=== PATIENT | female | born 1945 | race Caucasian/White ===

== ENCOUNTER 2016-07-08 07:29 | Outpatient (CLI) | payer MEDICARE, MEDICAID | END 2016-07-08 07:30 | disposition home or self-care (01) | DX: D50.9 Iron deficiency anemia, unspecified (principal); I10 Essential (primary) hypertension; E11.9 Type 2 diabetes mellitus without complications; E78.5 Hyperlipidemia, unspecified; N28.9 Disorder of kidney and ureter, unspecified; E03.9 Hypothyroidism, unspecified ==

== ENCOUNTER 2017-10-27 08:00 | Outpatient (CLI) | payer MEDICARE, MEDICAID | END 2017-10-27 08:01 | disposition home or self-care (01) | LOC: LAB.WCP 08:00 | PROVIDERS: ATTEND Family Medicine | DX: G89.4 Chronic pain syndrome (principal) | CPT/HCPCS: 80307; 81599 ==

== ENCOUNTER 2018-02-24 04:08 | Outpatient (CLI) | payer MEDICARE, MEDICAID | END 2018-02-24 04:09 | disposition critical access hospital (66) | LOC: EMS 04:08 | PROVIDERS: ATTEND Surgery | DX: R25.1 Tremor, unspecified (principal); R53.1 Weakness; R11.2 Nausea with vomiting, unspecified; M79.1 Myalgia; R45.89 Other symptoms and signs involving emotional state; R05 Cough; R06.02 Shortness of breath ==

== ENCOUNTER 2018-02-24 04:28 | Emergency (ER) | payer MEDICARE, MEDICAID ==
--- NOTE | 2018-02-24 04:41 | ED Physician Documentation ---
History of Present Illness - Stated complaint Stated Complaint: ETOH WITHDRAWL - Chief complaint Chief Complaint: MHE - History obtained from History obtained from: Patient - History of Present Illness Timing: Yesterday Improved by: nothing - Additonal information Additional information: c/o alcohol withdrawal (per patient). drinks vodka, last drink was Friday ( 2 days ago). c/o shaking/tremulousness, poor appetite, nausea, insomnia. I ask when she last went more than 24 hours without alcohol, and she is uncertain; given the choices of days, weeks, months, or years, she says . Review of Systems Constitutional: reports: Sweats. denies: Fever Cardiac: reports: Reviewed and negative Respiratory: reports: Reviewed and negative GI: reports: Nausea. denies: Abdominal Pain, Vomiting Neurologic: denies: Headache Psychiatric: reports: Insomnia. denies: Depressed, Suicidal, Hallucinations PD PAST MEDICAL HISTORY - Past Medical History Past Medical History: Yes Cardiovascular: Hypertension, High cholesterol - Present Medications Home Medications: Ambulatory Orders Medication Instructions Recorded Confirmed Ondansetron Odt [Zofran] 4 mg TL Q6H PRN #10 tablet 02/24/18 - Allergies Allergies/Adverse Reactions: Allergies Allergy/AdvReac Type Severity Reaction Status Date / Time No Known Drug Allergies Allergy Verified 02/24/18 04:38 - Living Situation Living Situation: reports: Alone Living Arrangement: reports: At home - Social History Does the pt drink ETOH?: Yes ETOH Use: Liquor PD ED PE NORMAL - Vitals Vital signs reviewed: Yes - General General: Alert and oriented X 3, Well developed/nourished, Other (tremulous, mostly with movement (minimal/no tremulousness at rest)) - HEENT HEENT: Atraumatic, Moist mucous membranes - Cardiac Cardiac: RRR, No murmur - Respiratory Respiratory: No respiratory distress, Clear bilaterally - Abdomen Abdomen: Soft, Non tender - Derm Derm: Normal color, Warm and dry - Neuro Neuro: Alert and oriented X 3, poacher operator 2-12 intact, No motor deficit, No sensory deficit, Normal speech Eye Opening: Spontaneous Motor: Obeys Commands Verbal: Oriented GCS Score: 15 Results - Vitals Vitals: Oxygen O2 Source Room air - Labs Labs: Laboratory Tests 02/24/18 02/24/18 05:20 05:20 WBC 10.6 RBC 3.64 L Hgb 12.2 Hct 34.9 L MCV 95.7 MCH 33.5 H MCHC 35.0 RDW 14.5 Plt Count 288 MPV 7.3 L Neut # (Auto) 7.9 H Lymph # (Auto) 1.9 [place] # (Auto) 0.7 Eos # (Auto) 0.0 Baso # (Auto) 0.1 Absolute Nucleated RBC 0.00 Nucleated RBC % 0.0 Sodium 134 L Potassium 4.0 Chloride 98 L Carbon Dioxide 22 Anion Gap 14.0 H BUN 21 H Creatinine 1.1 H Estimated GFR (MDRD) 49 L Glucose 134 H Calcium 7.7 L Total Bilirubin 0.6 AST 20 ALT 19 Alkaline Phosphatase 66 Total Protein 6.9 Albumin 3.9 Globulin 3.0 Albumin/Globulin Ratio 1.3 Lipase 33 Acetaminophen < 10 L Ethyl Alcohol < 5.0 PD MEDICAL DECISION MAKING - ED course Complexity details: reviewed results, re-evaluated patient, considered differential, d/w patient ED course: decreased tremulousness after iv ativan, although still some tremulousness with moving (sitting up), standing. VSS. admission to hospital not indicated at this time, ativan taper prescribed. encouraged to return if worsening in any way. - Sepsis Event Vital Signs: Oxygen O2 Source Room air Departure - Departure Disposition: 01 Home, Self Care Clinical Impression: Alcohol withdrawal syndrome Condition: Good Instructions: ED Withdrawal Alcohol Prescriptions: Ondansetron Odt [Zofran] 4 mg TL Q6H PRN #10 tablet PRN Reason: Nausea / Vomiting Comments: Follow up with your primary care physician within the next week. Take the lorazepam taper as prescribed. DO NOT TAKE ANY ALPRAZOLAM (XANAX) WHILE TAKING THE LORAZEPAM. Do not drink any alcohol when taking these medications. If you need help quitting alcohol, please talk to your doctor about options for this. Discharge Date/Time: 02/24/18 09:36
[2018-02-24] MEDS ORDERED: ALBUTEROL NEB 2.5 MG/3 ML INH STA (05:05)
[2018-02-24] MEDS ORDERED: LORazepam 2 MG/ML VIAL IVP STA ×2 (05:10→07:19)
[2018-02-24] MEDS ORDERED: SODIUM CHLORIDE 0.9% 1,000 ML IV STA (05:10)
[2018-02-24] MEDS ORDERED: ONDANSETRON 4 MG/2 ML VIAL IVP STA (05:10)
[2018-02-24 05:25] LABS: BASOPHILS # (AUTO) 0.1 10^3/uL (0.0-0.1); BASOPHILS % (AUTO) 0.8 %; EOSINOPHILS % (AUTO) 0.3 %; HGB - HEMOGLOBIN 12.2 g/dL (12.0-16.0); LYMPHOCYTES # (AUTO) 1.9 10^3/uL (1.5-3.5); LYMPHOCYTES % (AUTO) 17.7 %; MEAN CORPUSCULAR HEMOGLOBIN 33.5 pg (27.0-31.0); MEAN CORPUSCULAR VOLUME 95.7 fL (81.0-99.0); MEAN PLATELET VOLUME 7.3 fL (7.9-10.8); MONOCYTES # (AUTO) 0.7 10^3/uL (0.0-1.0); NEUTROPHILS # (AUTO) 7.9 10^3/uL (1.5-6.6); NEUTROPHILS % (AUTO) 74.2 %; PLT - PLATELET COUNT 288 10^3/uL (130-450); RED BLOOD COUNT 3.64 10^6/uL (4.20-5.40); RED CELL DISTRIBUTION WIDTH 14.5 % (12.0-15.0); WHITE BLOOD COUNT 10.6 x10^3/uL (4.8-10.8)
[2018-02-24 05:37] LABS: ALBUMIN 3.9 g/dL (3.2-5.5); ALBUMIN/GLOBULIN RATIO 1.3 (1.0-2.2); ALKALINE PHOSPHATASE 66 IU/L (42-121); ALT ALANINE AMINOTRANSFERASE 19 IU/L (10-60); AST ASPARTATE AMINOTRANSFERASE 20 IU/L (10-42); BILIRUBIN,TOTAL 0.6 mg/dL (0.2-1.0); BUN - BLOOD UREA NITROGEN 21 mg/dL (6-20); CALCIUM 7.7 mg/dL (8.5-10.3); CARBON DIOXIDE - CO2 22 mmol/L (21-32); CHLORIDE 98 mmol/L (101-111); CREATININE 1.1 mg/dL (0.4-1.0); GFR - MDRD 49 (>89); GLUCOSE 134 mg/dL (70-100); LIPASE 33 U/L (22-51); SODIUM 134 mmol/L (135-145); TOTAL PROTEIN 6.9 g/dL (6.7-8.2)
[2018-02-24 05:38] LABS: ACETAMINOPHEN < 10 ug/mL (10-30)
[2018-02-24] MEDS ORDERED: LORazepam 0.5 MG TABLET PO STA (09:04)
[2018-02-24 09:40] VITALS: BP 156/89
== END 2018-02-24 09:36 | disposition home or self-care (01) ==
LOC: EDUNIT# → ED 04:28
DX: F10.239 Alcohol dependence with withdrawal, unspecified (principal); I10 Essential (primary) hypertension
CPT/HCPCS: 36415; 80053; 83690; 85025; 94640; 96361; 96374; 96375; 99283; A9270; J2060; 80307; 80320

== ENCOUNTER 2018-02-26 07:47 | Observation (INO) | payer MEDICARE, MEDICAID ==
--- NOTE | 2018-02-26 07:59 | ED Physician Documentation ---
PD HPI ALTERED MENTAL STATUS - Stated complaint Stated Complaint: WEAKNESS - History obtained from History obtained from: Patient - History of Present Illness Timing - onset: Today Timing - duration: Hours Timing - details: Abrupt onset (The patient states she was feeling ill with some nausea the last few days. She denies any use of the Ativan she had been prescribed. She denies any alcohol the last several days. She had been drinking fluids. She states she started feeling confused overnight and then was not really aware of events subsequent. Her neighbor says she showed up knocking on her door this morning wearing a nightgown with the open robe in not really making sense with sentences. There is no obvious focal weaknesses. The patient seemed confused and disoriented. She is brought here and still a little bit confused but not quite as bad according to the neighbor. She was wheezing with some work of breathing. Her initial oximeter read okay but then was down to 88% a few minutes after resting. She denied any headache chest pain or belly pain.) Quality / character: Confused, Disoriented Associated symptoms: Dyspnea, Cough, General weakness. No: Fever, Headache, NVD , Focal weakness Contributing factors: Recent illness (has had wheezing and cough). No: Diabetic , Recent injury, Intoxicated, Known psych illness Basline status: Alert and oriented X 3, Ambulatory Similar symptoms before: Has not had sx before Recently seen: Emergency Dept (3 days ago for shaky and nauseated, dx with alcohol withdrawal. Rx ith Zofran and Ativan, but she says she had not taken the Ativan.) Review of Systems Constitutional: reports: Myalgias, Fatigue (the past week). denies: Fever, Chills Nose: denies: Rhinorrhea / runny nose, Congestion Throat: denies: Sore throat Cardiac: denies: Chest pain / pressure, Palpitations, Pedal edema, Calf pain Respiratory: reports: Dyspnea, Cough, Wheezing GI: reports: Nausea. denies: Abdominal Pain, Vomiting, Diarrhea : denies: Dysuria, Frequency Musculoskeletal: denies: Back pain Neurologic: reports: Generalized weakness, Confused. denies: Focal weakness, Numbness, Headache, Head injury Endocrine: denies: Weight loss Immunocompromised: denies: Immunocompromised PD PAST MEDICAL HISTORY - Past Medical History Cardiovascular: Hypertension, High cholesterol Respiratory: COPD Endocrine/Autoimmune: Type 2 diabetes - Past Surgical History Past Surgical History: Yes - Present Medications Home Medications: Ambulatory Orders Medication Instructions Recorded Confirmed Ondansetron Odt [Zofran Odt] 4 mg TL Q6H PRN #10 tablet 02/24/18 02/26/18 ALPRAZolam [Alprazolam] 1 mg PO BID PRN 02/26/18 02/26/18 Aclidinium [place] [Tudorza 1 inh INH BID 02/26/18 02/26/18 Pressair] Albuterol Sulfate [Proair Hfa 2 puffs INH Q4H PRN 02/26/18 02/26/18 Inhaler] Atorvastatin Calcium 10 mg PO QPM 02/26/18 02/26/18 Hydrocodone/Acetaminophen 1 tab PO BID PRN 02/26/18 02/26/18 [Hydrocodone-Acetamin 7.5-325] Lisinopril 20 mg PO BID 02/26/18 02/26/18 Metformin HCl 850 mg PO BIDWM 02/26/18 02/26/18 Metoprolol Succinate [Toprol Xl] 50 mg PO BID 02/26/18 02/26/18 Pantoprazole [Protonix] 40 mg PO QDAC 02/26/18 02/26/18 Venlafaxine HCl [Venlafaxine HCl 75 mg PO BID 02/26/18 02/26/18 ER] Sulfamethox/Trimeth 800/160 1 tab PO BID #13 tablet 02/27/18 [Bactrim Ds] - Allergies Allergies/Adverse Reactions: Allergies Allergy/AdvReac Type Severity Reaction Status Date / Time No Known Drug Allergies Allergy Verified 02/24/18 04:38 - Social History Does the pt smoke?: Yes Smoking Status: Current every day smoker Does the pt drink ETOH?: Yes Does the pt have substance abuse?: No - Family History Family history: reports: Unknown - Immunizations Immunizations are current?: Yes PD ED PE NORMAL - Vitals Vital signs reviewed: Yes (sats down to 86-88% RA) - General General: No acute distress, Well developed/nourished, Other (confused initially , with oriented to person and , slow to remember month. Improved slowly after arrival. ) - HEENT HEENT: Atraumatic, Pharynx benign, Dentition benign, Other (no tongue lesions) - Neck Neck: Supple, no meningeal sign, No adenopathy - Cardiac Cardiac: RRR, No murmur - Respiratory Respiratory: No: Clear bilaterally (diffuse wheezing with some congested sounds more on right. Mild retractions with breathing. ) - Abdomen Abdomen: Normal bowel sounds, Soft, Non tender - Back Back: No CVA TTP - Derm Derm: Normal color, Warm and dry - Extremities Extremities: No deformity, No tenderness to palpate - Neuro Neuro: stitcher feeder 2-12 intact, No motor deficit, No sensory deficit, Normal speech. No : Alert and oriented X 3 (person and month) Eye Opening: Spontaneous Motor: Obeys Commands Verbal: Oriented GCS Score: 15 Results - Vitals Vitals: Oxygen O2 Source Room air Oxygen Flow Rate 2 - EKG (time done) 07:55 Rate: Rate (enter#) (72) Rhythm: NSR [place]: Normal Intervals: Normal [place] QRS: Normal Ischemia: Normal ST segments, Non specific changes (t wave flattening). No: ST elevation c/w ischemia, ST depression - Labs Labs: Laboratory Tests 02/26/18 02/26/18 02/26/18 07:53 07:53 07:53 WBC 7.9 RBC 3.80 L Hgb 12.7 Hct 36.4 L MCV 95.8 MCH 33.4 H MCHC 34.8 RDW 14.4 Plt Count 348 MPV 7.5 L Neut # (Auto) 4.9 Lymph # (Auto) 2.2 [place] # (Auto) 0.7 Eos # (Auto) 0.0 Baso # (Auto) 0.1 Absolute Nucleated RBC 0.01 Nucleated RBC % 0.1 Sodium 133 L Potassium 3.8 Chloride 95 L Carbon Dioxide 25 Anion Gap 13.0 BUN 27 H Creatinine 1.8 H Estimated GFR (MDRD) 28 L Glucose 151 H Calcium 7.7 L Magnesium 0.5 L* Total Bilirubin 0.6 AST 24 ALT 17 Alkaline Phosphatase 68 Troponin I < 0.04 Total Protein 7.5 Albumin 4.0 Globulin 3.5 Albumin/Globulin Ratio 1.1 Lipase 46 Salicylates < 6.0 Acetaminophen < 10 L Ethyl Alcohol < 5.0 - Rads (name of study) chest xray Radiology: Prelim report reviewed, EMP read contemporaneously (no acute process) head CT Radiology: Prelim report reviewed (no ICH nor acute changes. ) PD MEDICAL DECISION MAKING - ED course Complexity details: reviewed old records, reviewed results, considered differential (Recently seen for alcohol withdrawal. She states she had not taken the Ativan which could account for some of the delirium. There is no obvious signs of seizure such as tongue biting. In withdrawal seizure could have given her some of the confusion and presenting at her neighbor's house. She is wheezing with hypoxia and that may also account for her symptoms as she did seem to improve once she got a nebulizer and oxygen supplement. She does have a low calcium and magnesium which could account for some of her general weakness but I do not think it would cause the delirium. At this point there is several issues going on including the potential for vascular problems such as TIA or stroke although she did not have unilateral weakness or such. I think further evaluation and continued treatment of her COPD exacerbation are warranted.), d/w patient - Sepsis Event Vital Signs: Oxygen O2 Source Room air Oxygen Flow Rate 2 Departure - Departure Disposition: ED Place in Observation Clinical Impression: Hypomagnesemia, Hypoxia, COPD with exacerbation Altered mental status Qualifiers: Altered mental status type: delirium Qualified Code(s): R41.0 - Disorientation , unspecified Condition: Good Record reviewed to determine appropriate education?: Yes Discharge Date/Time: 02/26/18 11:49
[2018-02-26] MEDS ORDERED: SODIUM CHLORIDE 0.9% 1,000 ML IV ONE ×2 (08:03→23:42)
[2018-02-26] MEDS ORDERED: IPRATROPIUM/ALBUTEROL 3 ML NEB INH STA (08:03)
[2018-02-26 08:11] LABS: BASOPHILS # (AUTO) 0.1 10^3/uL (0.0-0.1); BASOPHILS % (AUTO) 0.8 %; EOSINOPHILS % (AUTO) 0.5 %; HGB - HEMOGLOBIN 12.7 g/dL (12.0-16.0); LYMPHOCYTES # (AUTO) 2.2 10^3/uL (1.5-3.5); LYMPHOCYTES % (AUTO) 27.4 %; MEAN CORPUSCULAR HEMOGLOBIN 33.4 pg (27.0-31.0); MEAN CORPUSCULAR HGB CONC 34.8 g/dL (32.0-36.0); MEAN CORPUSCULAR VOLUME 95.8 fL (81.0-99.0); MEAN PLATELET VOLUME 7.5 fL (7.9-10.8); MONOCYTES # (AUTO) 0.7 10^3/uL (0.0-1.0); MONOCYTES % (AUTO) 9.3 %; NEUTROPHILS # (AUTO) 4.9 10^3/uL (1.5-6.6); PLT - PLATELET COUNT 348 10^3/uL (130-450); RED CELL DISTRIBUTION WIDTH 14.4 % (12.0-15.0); WHITE BLOOD COUNT 7.9 x10^3/uL (4.8-10.8)
[2018-02-26 08:21] LABS: ACETAMINOPHEN < 10 ug/mL (10-30); ALBUMIN/GLOBULIN RATIO 1.1 (1.0-2.2); ALKALINE PHOSPHATASE 68 IU/L (42-121); ALT ALANINE AMINOTRANSFERASE 17 IU/L (10-60); AST ASPARTATE AMINOTRANSFERASE 24 IU/L (10-42); BILIRUBIN,TOTAL 0.6 mg/dL (0.2-1.0); BUN - BLOOD UREA NITROGEN 27 mg/dL (6-20); CALCIUM 7.7 mg/dL (8.5-10.3); CARBON DIOXIDE - CO2 25 mmol/L (21-32); CHLORIDE 95 mmol/L (101-111); CREATININE 1.8 mg/dL (0.4-1.0); GFR - MDRD 28 (>89); GLUCOSE 151 mg/dL (70-100); LIPASE 46 U/L (22-51); SALICYLATE < 6.0 mg/dL; SODIUM 133 mmol/L (135-145); TOTAL PROTEIN 7.5 g/dL (6.7-8.2)
[2018-02-26] MEDS ORDERED: MAGNESIUM SULFATE 2 GRAM 2 GM/50 ML BAG IV ONE ×2 (08:26→11:06)
--- NOTE | 2018-02-26 08:40 | XRAY Report ---
Reason: dyspnea and cough Procedure Date: 02/26/2018 Accession Number: [id number] / [id number] Procedure: XR - Chest 2 View X-Ray CPT Code: 87417 FULL RESULT: EXAM: CHEST RADIOGRAPHY EXAM DATE: 02/26/2018 08:15 AM. CLINICAL HISTORY: Dyspnea and cough. COMPARISON: 09/01/2017. TECHNIQUE: 2 views. FINDINGS: Lungs/Pleura: Hyperinflation. No consolidation. No vascular congestion . No pneumothorax. No pleural effusions. Mediastinum: Heart size and mediastinal contour are stable. Aortic atherosclerosis. Other: Degenerative changes of the thoracic spine. IMPRESSION: 1. Hyperinflation. 2. No acute disease. RADIA
--- NOTE | 2018-02-26 08:48 | CT Report ---
Reason: confused this morning Procedure Date: 02/26/2018 Accession Number: [id number] / [id number] Procedure: CT - Head W/O CPT Code: FULL RESULT: EXAM: CT HEAD EXAM DATE: 02/26/2018 08:08 AM. CLINICAL HISTORY: Confused this morning. COMPARISON: 05/18/2007. TECHNIQUE: Multiaxial CT images were obtained from the foramen magnum to the vertex. Reformats: Sagittal and coronal. IV contrast: None. In accordance with CT protocol optimization, one or more of the following dose reduction techniques were utilized for this exam: automated exposure control, adjustment of mA and/or KV based on patient size, or use of iterative reconstructive technique. FINDINGS: Parenchyma: Progression of parenchymal volume loss. Periventricular regions of low-attenuation. No evidence of acute vascular insult or acute parenchymal hemorrhage . No midline shift . No mass effect. Extraaxial Spaces: Mildly prominent with progression. No subdural or epidural collections identified. Ventricles: Slight more prominent although symmetric. No hydrocephalus. Sinuses and Orbits: Moderate circumferential mucosal thickening of the right sphenoid sinus. Remainder of the paranasal sinuses and mastoid air cells are clear. Bones: No evidence of fracture or calvarial defect. Other: Globes and orbits are unremarkable. Vascular calcifications. IMPRESSION: 1. No acute intracranial abnormality is identified. 2. Progression of parenchymal volume loss and chronic white matter changes. 3. Moderate right sphenoid sinus disease. RADIA
[2018-02-26] MEDS ORDERED: CALCIUM GLUCONATE 1,000 MG in SODIUM CHLORIDE 0.9% 50 ML IV STA (08:59)
[2018-02-26] MEDS ORDERED: ALBUTEROL NEB 2.5 MG/3 ML INH STA (09:26)
[2018-02-26] MEDS ORDERED: ONDANSETRON ODT 4 MG TABLET TL PRN (11:05)
[2018-02-26] MEDS ORDERED: PROCHLORPERAZINE 10 MG/2 ML VIAL IVP PRN (11:05)
[2018-02-26] MEDS ORDERED: oxyCODONE 5 MG TABLET PO PRN (11:05)
[2018-02-26] MEDS ORDERED: ACETAMINOPHEN 325 MG TABLET PO PRN (11:05)
[2018-02-26] MEDS ORDERED: MULTIVITAMIN 10 ML in SODIUM CHLORIDE 0.9% 1,000 ML IV STA (11:05)
[2018-02-26] MEDS ORDERED: ONDANSETRON 4 MG/2 ML VIAL IVP PRN (11:05)
[2018-02-26] MEDS ORDERED: MAGNESIUM SULFATE 2 GRAM 2 GM/50 ML BAG IV STA (11:05)
[2018-02-26] MEDS ORDERED: THIAMINE INJ 100 MG, FOLIC ACID INJ 1 MG in SODIUM CHLORIDE 0.9% 100ML 100 ML IV STA ×2 (11:05)
[2018-02-26] MEDS ORDERED: LORazepam 2 MG/ML VIAL IVP PRN (11:15)
[2018-02-26] MEDS: methylPREDNISolone SUCCINATE 40 MG/ML VIAL IVP SCH ×3 (12:44→22:10)
[2018-02-26] MEDS: SODIUM CHLORIDE FLUSH 0.9% 10 ML SYRINGE IVP PRN ×2 (12:44→22:10)
[2018-02-26] MEDS: IPRATROPIUM/ALBUTEROL 3 ML NEB INH SCH ×3 (13:46→19:37)
[2018-02-26] MEDS ORDERED: ALPRAZolam 0.25 MG TABLET PO PRN (15:31)
[2018-02-26] MEDS ORDERED: NICOTINE 7 MG PATCH TOP SCH (16:00)
[2018-02-26] MEDS: HYDROcod/ACETAM 5/325 MG TABLET PO SCH ×2 (16:35→22:09)
[2018-02-26 17:27] LABS: MUDS CUTOFF CONCENTRATIONS CUTOFF CONC BELOW:
[2018-02-26 17:29] LABS: MAGNESIUM 0.5 mg/dL (1.7-2.8)
[2018-02-26 17:43] LABS: BILIRUBIN,URINE NEGATIVE (NEGATIVE); GLUCOSE, URINE (UA) NEGATIVE (NEGATIVE); KETONES,URINE (UA) NEGATIVE (NEGATIVE); LEUKOCYTE ESTERASE, URINE NEGATIVE (NEGATIVE); NITRITE,URINE NEGATIVE (NEGATIVE); OCCULT BLOOD,URINE MODERATE (NEGATIVE); PH,URINE 5.5 PH (5.0-7.5); PROTEIN,URINE 100 mg/dL (NEGATIVE); UROBILINOGEN,URINE 0.2 (NORMAL) E.U./dL (NORMAL)
[2018-02-26 17:49] LABS: CLARITY,URINE CLEAR (CLEAR)
[2018-02-26] MEDS: SODIUM CHLORIDE FLUSH 0.9% 10 ML SYRINGE IVP SCH (17:49)
[2018-02-26 17:52] LABS: COCAINE SCREEN URINE NEGATIVE (NEGATIVE); METHAMPHETAMINES SCREEN, URINE NEGATIVE (NEGATIVE)
[2018-02-26 17:53] LABS: AMPHETAMINE SCREEN,URINE NEGATIVE (NEGATIVE); BENZODIAZEPINES SCREEN, URINE POSITIVE (NEGATIVE); METHADONE SCREEN, URINE NEGATIVE (NEGATIVE); OPIATE SCREEN, URINE POSITIVE (NEGATIVE); OXYCODONE SCREEN, URINE NEGATIVE (NEGATIVE); PROPOXYPHENE SCREEN, URINE NEGATIVE (NEGATIVE); TRICYCLIC ANTIDEPRESSANT,URINE NEGATIVE (NEGATIVE)
[2018-02-26 18:12] LABS: BACTERIA,URINE Moderate /HPF (None Seen); RBC,URINE 0-5 /HPF (0-5); SQUAMOUS EPITHELIAL CELL,UR RARE Squamous (<= Few)
[2018-02-26] MEDS ORDERED: ACLIDINIUM BROMIDE INH SCH (19:00)
[2018-02-26] MEDS ORDERED: LIDOCAINE PATCH 5% TOP PRN (20:33)
[2018-02-26] MEDS: METOPROLOL SUCCINATE 50 MG TABLET PO SCH (20:46)
[2018-02-26] MEDS: VENLAFAXINE ER 75 MG CAPSULE PO SCH (20:47)
[2018-02-26] MEDS: LISINOPRIL 20 MG TABLET PO SCH (20:47)
[2018-02-26] MEDS ORDERED: ATORVASTATIN 10 MG TABLET PO SCH (21:00)
[2018-02-26] MEDS: SULFAMETH/TRIMETH DS 800/160 MG TABLET PO SCH (22:10)
[2018-02-27] MEDS: SODIUM CHLORIDE FLUSH 0.9% 10 ML SYRINGE IVP SCH ×2 (02:28→05:50)
[2018-02-27 05:45] LABS: BASOPHILS # (AUTO) 0.1 10^3/uL (0.0-0.1); BASOPHILS % (AUTO) 0.6 %; HGB - HEMOGLOBIN 11.7 g/dL (12.0-16.0); LYMPHOCYTES # (AUTO) 0.8 10^3/uL (1.5-3.5); LYMPHOCYTES % (AUTO) 9.6 %; MEAN CORPUSCULAR HGB CONC 34.3 g/dL (32.0-36.0); MEAN CORPUSCULAR VOLUME 96.1 fL (81.0-99.0); MEAN PLATELET VOLUME 7.4 fL (7.9-10.8); MONOCYTES # (AUTO) 0.3 10^3/uL (0.0-1.0); MONOCYTES % (AUTO) 3.1 %; NEUTROPHILS # (AUTO) 7.6 10^3/uL (1.5-6.6); NEUTROPHILS % (AUTO) 86.7 %; PLT - PLATELET COUNT 354 10^3/uL (130-450); RED BLOOD COUNT 3.54 10^6/uL (4.20-5.40); RED CELL DISTRIBUTION WIDTH 14.1 % (12.0-15.0); WHITE BLOOD COUNT 8.8 x10^3/uL (4.8-10.8)
[2018-02-27] MEDS: SODIUM CHLORIDE FLUSH 0.9% 10 ML SYRINGE IVP PRN (05:50)
[2018-02-27] MEDS: methylPREDNISolone SUCCINATE 40 MG/ML VIAL IVP SCH ×2 (05:50→06:22)
[2018-02-27 05:51] LABS: ALBUMIN 3.7 g/dL (3.2-5.5); ALBUMIN/GLOBULIN RATIO 1.2 (1.0-2.2); BILIRUBIN,TOTAL 0.4 mg/dL (0.2-1.0); CREATININE 1.1 mg/dL (0.4-1.0); TOTAL PROTEIN 6.9 g/dL (6.7-8.2)
[2018-02-27] MEDS: HYDROcod/ACETAM 5/325 MG TABLET PO SCH (05:52)
[2018-02-27 05:59] LABS: HEMOGLOBIN A1C 0.44 g/dL; HEMOGLOBIN A1C % 5.5 % (4.6-6.2)
[2018-02-27] MEDS ORDERED: PANTOPRAZOLE 40 MG TABLET PO SCH (07:00)
[2018-02-27] MEDS ORDERED: INSULIN ASPART 300 UNIT/3 ML PEN SUBQ SCH (08:00)
[2018-02-27] MEDS: IPRATROPIUM/ALBUTEROL 3 ML NEB INH SCH ×2 (08:22→12:54)
[2018-02-27] MEDS ORDERED: THIAMINE INJ 100 MG, FOLIC ACID INJ 1 MG in SODIUM CHLORIDE 0.9% 100ML 100 ML IV SCH (09:00)
[2018-02-27] MEDS ORDERED: MULTIVITAMIN 10 ML in SODIUM CHLORIDE 0.9% 1,000 ML IV SCH (09:00)
[2018-02-27] MEDS ORDERED: POLYETHYLENE GLYCOL 3350 17 GM PACKET PO SCH (09:00)
[2018-02-27] MEDS: VENLAFAXINE ER 75 MG CAPSULE PO SCH (09:09)
[2018-02-27] MEDS: SULFAMETH/TRIMETH DS 800/160 MG TABLET PO SCH (09:09)
[2018-02-27] MEDS: LISINOPRIL 20 MG TABLET PO SCH (09:10)
[2018-02-27] MEDS: METOPROLOL SUCCINATE 50 MG TABLET PO SCH (09:10)
[2018-02-27] MEDS ORDERED: HYDROcod/ACETAM 5/325 MG TABLET PO SCH (09:30)
--- NOTE | 2018-02-27 11:06 | Discharge Plan ---
Discharge Plan Disposition: 01 Home, Self Care Condition: Good Prescriptions: Sulfamethox/Trimeth 800/160 [Bactrim Ds] 1 tab PO BID #13 tablet Diet: Regular Activity Restrictions: Activity as Tolerated Shower Restrictions: No Driving Restrictions: No Additional Instructions or Follow Up instructions: You were admitted to the hospital because you had a very severe acute confusional state that started in the middle of night. We think it is because you have been on and off narcotics and tranquilizing drugs. You also have been on and off alcohol. And all of those caused a short episode of what we think is delirium. While here we did a CAT scan of your head and you were not having a stroke. Your blood work shows you to have been dehydrated with elevated kidney function test that were only mildly elevated and are now near normal. Make sure you drink 1000 ml of water a day. You did have a low magnesium to 0.5 and that is now normal as well. We see low magnesium levels with alchol abuse and dehdyration. You did have a urinary tract infection and that is being treated with an oral antibiotic Bactrim. Please make sure you take all of it and complete treatment. You are also worried about her financial situation because she may be evicted from her apartment. financial services assistant has started helping you. For instance you have now started the process for Medicaid. You should continue working with a social media marketing specialist at the [facility]. If you go to the [facility] and they sometimes help you with regards to in-home support needs as well. Please see your primary care provider in follow-up in the next week. Right now you are in the middle of changing providers since Dr. Acosta has left the [facility]. Before you left we are testing you for oxygen need. You do have a little bit of emphysema and it was worse on the day you were in the emergency room. You were also hyperventilating in the emergency room and may been having a small panic attack. We do not need to change your emphysema medications and continue as you were doing before. No Smoking: If you smoke, Please STOP! Call for help. Follow-up with: Feng Salas MD [Primary Care Provider] -
[2018-02-27 11:30] VITALS: BP 175/80
--- NOTE | 2018-02-28 00:21 | DISCHARGE SUMMARY ---
Physician: Marcie García MD DATE OF ADMISSION: 02/26/2018 DATE OF DISCHARGE: 02/27/2018 PRIMARY CARE PROVIDER: Dr. Ernesto Huffman DISCHARGE DIAGNOSES 1. Acute delirium. 2. Chronic obstructive pulmonary disease with mild exacerbation. 3. Alcohol abuser. 4. Tobacco abuser. 5. Chronic pain syndrome. 6. Urinary tract infection. MEDICATIONS AT DISCHARGE 1. Tudorza 1 inhalation b.i.d. 2. ProAir HFA inhaler 2 puffs inhalation every 4 hours as needed. 3. Alprazolam 1 mg p.o. b.i.d. 4. Vicodin 7.5/325 one tablet p.o. t.i.d. p.r.n. 5. Atorvastatin 10 mg q.p.m. 6. Lisinopril 20 mg p.o. b.i.d. 7. Metformin 850 mg p.o. b.i.d. 8. Toprol-XL 50 mg p.o. b.i.d. 9. Protonix 40 mg p.o. daily. 10. Venlafaxine extended release 75 mg p.o. b.i.d. 11. Bactrim Double Strength p.o. b.i.d. #13, new med PRINCIPAL PROCEDURES 1. CT of the head, which showed atrophy but no acute intracerebellar and intracerebral changes. No hydrocephalus. 2. Chest x-ray with hyperinflation, no acute disease. 3. Urine culture with E coli. Sensitivities still pending at discharge. Please make sure primary care provider reviews sensitivities to make sure she is on correct antibiotic. HOSPITAL COURSE: She is a pleasant but confabulating 72-year-old female. She lives in her own apartment, still relatively independent, but relies on friends and neighbors to meet her rent payment. She is being threatened with eviction. This is completely stressed her out. She is an alcohol abuser. Intermittently binges on alcohol. Chronic pain "user" who uses Vicodin 3 times a day and alprazolam twice a day. This has been ongoing for several years now, and she is in a pain contract with her PCP. However, she became exceedingly stressed out and panicked over the eviction notice that she received yet again. She started drinking up to a gallon of vodka a week. When she went to see her primary care provider to get her chronic pain medicines renewed, those were discontinued because of the ongoing alcohol abuse. She was begging for her pain medications back again and promised to stop drinking and went cold turkey on February 18. She was seen via the emergency room on February 24 for alcohol withdrawal and given some benzodiazepines that she says she never filled. Then she was seen by her PCP on February 25 and got some pain medicines. She woke up in the utility worker forge hours of February 26 in her apartment around 3:30 in the morning confused. She ended up at her neighbor's apartment in her bathrobe and pajamas confused, confabulating, disoriented. No focal deficits. She was brought to the emergency room, where she was evaluated by the ER doctor , who felt that she was having delirium from her opiates, benzodiazepines, and late stages of mild alcohol withdrawal. In reviewing the record, she has a long history of occasional panic disorder. 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 She was about to be discharged back to home when in the middle of her evaluation she began having wheezing and shortness of breath. While it may have been panic, the patient was still wheezing and, as such, received nebulizers. She ended up getting steroids. She was placed in observation to make sure her COPD did not exacerbate. She is a current daily smoker where she started smoking at the age of 15 and smokes anywhere from 1/2 to 1 pack per day. Overnight, the patient has settled down. She had some twitching on the day of admission and some tremulousness, but during her stay there was no outright withdrawal. There was no hypertension, no tremors, no tremulousness, no sweats. She was eating her food well. On the day of discharge, she is still having some issues with hallucinations. For instance, she was observing tattoos all over the nurse. Then she felt that her friend had different colors all over her face. Her friend, who helps her with her rent, asked if this woman could please go into a detox program. Water Use Inspector was consulted and spent over an hour in the room with the patient and her friend. In the end, the patient did not want to voluntarily be admitted to a detox program and wanted to go home. As such, she was sent home in stable condition. Still a little bit of hallucinations but awake, alert. PHYSICAL EXAMINATION VITAL SIGNS: Temperature 36.3, pulse 77, blood pressure 175/80, respirations 18 , 95% on room air. GENERAL: She is a tall, alert, well-groomed, elderly female. Vague affect. NECK: Supple. LUNGS: Clear to auscultation and percussion without any more wheezing since admission. She declined any further steroids because they "made her feel creepy crawly." No tachypnea. No use of accessory muscles. She is calm, comfortable, sitting in the room. HEART: PMI is normally placed, with a regular rate and rhythm. ABDOMEN: Soft, nontender. Normal bowel sounds. No masses. EXTREMITIES: No clubbing in spite of her long history of smoking. No cyanosis , no edema. NEUROLOGIC: She walks with a slight hesitancy in her gait but no shuffling. She is asked to please follow up with her primary care provider. Dr. Salas is now retired. She does not know if she is going to be seeing Dr. Huffman, Dr. Watson, etc. I explained that she may be referred to a pain clinic if she continues to use chronic pain medicines. I will also ask Water Use Inspector to see her and spend quite a bit of time with her getting her into the Medicaid program because if this patient is evicted she will become homeless. She has made no effort to pack up her things or get ready for the eviction, even though she has known about this for probably close to 2 years. As far as Medicaid, we have given her the address of the [facility] and to school traffic supervisor with the social service worker there. Try and identify future housing. cc: Ernesto Huffman MD TD: 02/27/2018 19:44 MTDD
--- NOTE | 2018-03-01 15:58 | HISTORY & PHYSICAL EXAMINATION ---
DATE OF SERVICE: 02/26/2018 Physician: Marcie García MD PRIMARY CARE PROVIDER: Dr. Huffman. ADMITTING PROVIDER: Marcie García MD. CHIEF COMPLAINT: Weakness and confusion. HISTORY OF PRESENT ILLNESS: The patient is a moderately overweight, elderly woman who lives in her own apartment. She has a long history of alcoholism and chronic pain syndrome, for which she uses benzodiazepines and opiates in the form of Ativan and Vicodin. She is usually allowed 90 Vicodin a month and 45 Ativan a month. She has anxiety with depression that will sometimes get the best of her. When she does that, she returns to her alcohol abuse. Her most recent stressor is being threatened with eviction. She has lived in the same apartment for over 33 years, and she cannot imagine her life if she has to leave that apartment. For the last couple of years her landlord has been telling her (about every 6 months) that they will have to evict her out of this apartment. They want to renovate it and raise the rent. Her rent has been raised about every 6 months. Her brother and her good friends have been contributing to her rental payment every month in an effort to keep her in that apartment, but she is running out of time, and her anxiety level is creeping up. So she went back to drinking. She drinks about a gallon of vodka a week. In response to that, her primary care providers reduced the amount of Vicodin and Ativan she was on to avoid [id number] interaction, so she stopped drinking 02/18/2018. She was seen 02/24/2018 in the emergency room for possible withdrawal and sent home. She was seen by her primary care provider yesterday. She has promised to stop drinking, and she has been given a limited supply of Vicodin and Ativan to get her through to her next regular prescription scheduling. She woke up around 3:30 in the morning. She got up to go to the bathroom and became alarmed because she felt like she "didn't know how to pee anymore." She did not know how to pull her panties up. She did not know how to turn on the faucets in her bathroom to wash her hands. She walked out into her small living room confused. Again, could not figure out what she was doing and why she was up. So she sat down on her living room floor and lay there overnight. When daylight started happening, she got up and got clothes on, a bathrobe on, and walked over to her neighbor's house. At her neighbor's house, she was wearing a nightgown with an open robe. She was not making sense with her sentences. No focal weakness. She was confused and disoriented; so she was brought in by her neighbors. While in the emergency room, she then developed wheezing and increased work of breathing. The patient does have a history of anxiety and panic attacks. She started having myoclonus and anxiety with her myoclonus in 2006. She was referred to Neurology where a CT of the head was negative, and a neurologist saw her and did a challenge test with hyperventilation. Hyperventilation caused severe anxiety. She then had an EEG that was completely normal, but anxiety was noted during that EEG. She is a chronic smoker. Started smoking at the age of 15 and smokes anywhere from 1/2 to 1 pack per day. She has attempted to stop in the past, but not for long. She has chronic daily cough; chronic daily phlegm production, but not severe. With today's episode of wheezing in the emergency room, she felt like her shortness of breath and coughing were worse today; but no fever, chills. No change in the color of her phlegm. No URI symptoms or sore throat, runny nose, ear pain. She was evaluated by Dr. Dela Cruz who found her to be afebrile, mildly hypertensive at 156/71, and oxygenating normally at 96%. She had diffuse wheezing with congested sounds on the right. Mild rib retraction. She was given calcium gluconate, DuoNeb, magnesium sulfate 2 grams because her magnesium was quite low, and a liter of normal saline. She is now brought under observation for COPD exacerbation, and delirium most likely due to either alcohol withdrawal or use of benzodiazepines. PAST MEDICAL HISTORY 1. COPD. Secondary to smoke. Not on oxygen. Does do Tudorza for her home meds, ProAir HFA inhaler. In the past used Spiriva, but it is too expensive. She has never been intubated. She has never been hospitalized for COPD. She did have pneumonia that was treated in the outpatient setting in 2005. 2. Hypertension. 3. Type 2 diabetes mellitus, without complications, not on insulin. Her A1c is controlled. In the medical record A1c was 6.5% in 2012. In 2016 and 2017 she is between 5.5 and 5.8%. 4. Bilateral cataracts. Not mature enough to operate on. 5. Hyperlipidemia. 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 Her statin was temporarily discontinued. It was resumed shortly thereafter. 6. G1, P1. On estrogen replacement therapy off and on. She was on it for withdrawal of flashes, Alzheimer's, bone density. Depending on what was going on in the literature she says that her primary care provider will put her on it and then take her off of it. She has not been on it for a couple of years. 7. Basal cell carcinoma, left groin resected 04/2007. 8. 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 CT of head negative 04/2007. Seen by [facility] 06/2007, thought to have a strong anxiety component. EEG negative 12/2007. She developed quite a brisk allergic reaction to the electrode patches on her scalp. As part of her treatment, she was then subsequently sent to physical therapy and she did physical therapy for about 6 weeks. 9. Hoarse voice. She was referred to ENT in the last few years, but never managed to get [facility] because of lack of transportation. 10. Stubbing her toe with toe fracture 06/2007. 11. Fall with head injury in 2004 with temporary loss of consciousness. She feels that she has chronic left body weakness because of it. With the neurology examination in 2007, she has a normal neurological exam. 12. Peptic ulcer disease. She was seen for epigastric discomfort and had an EGD 02/2009 as well as a colonoscopy. That EGD showed her to have a hiatal hernia and a gastric ulcer that was injected. H. pylori negative. She was instructed not to take any nonsteroidals. She then had hematemesis 10/2009. Clots were seen over a Terra-Reed tear. At that time, she had gone on a binge drink. Developed nausea and vomiting. No ulcers were seen in her stomach. She was given 3 units of blood and again told not to take nonsteroidals. She then returned with black stool 11/2009. Given 3 units. EGD confirmed a recurrent gastric ulcer. Again, she had been drinking with nonsteroidal and again reminded not to drink and not to take nonsteroidals. She is on a proton pump inhibitor on a regular basis. Unfortunately, she does take nonsteroidals. She says that if they cut back on her Vicodin she has to do "something for the pain" and will take the nonsteroidals [id number]. 13. Chronic pain syndrome. She says her pain is constant in her shoulders, feet, and hips. If she does not get her opiates, pain is unbearable and she cannot work the small job that she has. 14. Depression with chronic anxiety. Allowed up to 2 Ativan a day and has been on Effexor since 2006. 15. Seizure disorder with alcohol withdrawal. 16. Hyperplastic polyp and tubular adenoma seen and colonoscopy 2008. 17. Alcohol abuse as above. Last drink was 01/2009. She has had abdominal ultrasounds and so far there is mild echogenicity increased, but no documented cirrhosis. No esophageal varices. ALLERGIES: NO KNOWN DRUG ALLERGIES. MEDICATIONS 1. Tudorza 400 mcg inhalation b.i.d. 2. ProAir HFA inhaler two puffs every 4 hours as needed. 3. Alprazolam 1 mg p.o. b.i.d. 4. Atorvastatin 10 mg p.o. q.p.m. 5. Vicodin one tablet p.o. t.i.d. p.r.n. 6. Lisinopril 20 mg p.o. b.i.d. 7. Metformin 850 mg p.o. b.i.d. 8. Toprol-XL 50 mg p.o. b.i.d. 9. Protonix 40 mg p.o. daily. 10. Zofran was prescribed with her alcohol withdrawal ER visit 02/24/2018, 4 mg every 6 hours p.r.n. 11. Venlafaxine extended release 75 mg p.o. b.i.d. 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 She has 1 child with a partner. Never had children with her . They have been since approximately 1991. She has lived in her own apartment for over 33 years. Again, severe anxiety ensues when she thinks about having to leave that apartment because she feels that has been her home her whole life. 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 She denies any other use of recreational substances other than cannabis, which does not work for her. She has never tried heroin, LSD, methamphetamines. She has been drinking since her 20s. Drinking varies on her anxiety. This last week it was a gallon of vodka a week. Sometimes she drinks beer. She smokes half a pack to 1 pack per day and has done so since the age of 15. She still is able to live in her own apartment independently. She gets financial help from her brother in [place] and her neighbors. She will need help in figuring out how to go live somewhere when she is evicted. She is still able to do her own housework. She does not have a car and has transportation issues. FAMILY HISTORY: Dad at age 60 of alcoholism and a suicide. Mom at age 83 of Alzheimer's and Parkinson's. She used to have 2 sisters and 5 brothers. One sister in infancy. One brother of suicide. One brother of congestive heart failure complications. One brother in a motor vehicle accident. Her child lives in [place] and is healthy. It is her daughter. She does not think she would ever want to live with her because "my daughter scares me." She has mental health issues. REVIEW OF SYSTEMS GENERAL EXAM: She is without any unexpected weight changes, no fevers, no sweats. HEENT: She gets a lot of glare from her cataracts, and occasionally gets a headache, blurred vision, but no amaurosis fugax. She wears dentures and left her dentures at home, so it is difficult for her to chew today. She denies sore throat, runny nose, ear pain. PULMONARY: Constant daily mild cough. Constant daily mild phlegm production, but not severe. Today is the first day she felt like she was short of breath and having exacerbation of her baseline emphysema. CARDIA: Denies chest pain, angina, palpitations. She denies edema, orthopnea. No one ever told her she has had a murmur or valvular heart disease. GASTROINTESTINAL: Denies constipation, diarrhea. No change in bowel habits. No change in the color of her stool. No hematochezia, no hematemesis. No epigastric pain. GENITOURINARY: Has either urinary incontinence, but denies urgency, frequency, dysuria. No flank pain. No hematuria. MUSCULOSKELETAL: Her main complaint next to her anxiety and depression. This is what limits her life and this is why she needs to take Vicodin 3 times a day. Hips, shoulders, and feet are particularly painful, but her chronic pain is stable. There is no recent increase in pain. 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 PSYCH: Very anxious, very unhappy right now. She does not want to leave her home, but she denies suicidal ideation. Denies hallucinations. NEUROLOGIC: The confusion and delirium were new for her. She has never done that before. She has not had a seizure in years. She denies focal deficits. Denies neuropathy. Denies migraine headaches. PHYSICAL EXAMINATION VITAL SIGNS: On examination, temperature is 36.2, pulse is 82, blood pressure 134/79 to 185/72. Respirations are 20 and unlabored, and she is 94% on room air. The lowest she has been in the emergency room is 88% when she first walked in the door and she required 2 liters nasal cannula. GENERAL: She is an alert, oriented, elderly female who is edentulous, well- groomed, well-nourished. Watching TV when I walked in the room. Completely comfortable. HEENT: Head and neck is remarkable for the edentulous status. Pupils are reactive. Normal facial symmetry. Voice is normal. The back of the throat are not injected. TMs are slightly retracted, but no redness. NECK: Supple, shotty adenopathy, but no goiter or bruits. LUNGS: Clear to auscultation and percussion. She does have a prolonged and exhalation phase. She has no wheezing during my exam until she starts laughing at something I said and then the wheezing starts. Then, a light spasmodic cough that resolves quickly. PMI is normally placed with regular rate and rhythm. No right ventricular lift. ABDOMEN: Slightly obese, soft, nontender without organomegaly. No fluid wave. Liver edge palpable 1 fingerbreadth below the rib cage costal margin. EXTREMITIES: Warm and she has no clubbing, cyanosis or edema. She does have some mild osteoarthritic deformities of the distal interphalangeal joints of her fingers and toes. NEUROLOGIC: She is alert and oriented to person, place, and time. She is a lucid historian. Normal speech patterns. Cranial nerves II-XII are grossly normal. Upper body strength of arms, hands, leg lifting, plantar and dorsiflexion feet strength testing are normal. Reflexes normal in the biceps, brachioradialis and knees. During the exam, she does have occasional myoclonus that happens about once every 5-7 minutes that she is unaware of. There are no tremors. No anxiety, other than she is describing a "creeping crawling sensation underneath her right scapula." She says that she is also starting to rev up with anxiety and really desperately wants to smoke. LABORATORY DATA: Sodium 133, potassium 3.8, BUN 27, creatinine 1.8, random glucose 151. Magnesium is 0.5. Protein status is normal. Troponin less than 0.04. White cell count of 7.9, hemoglobin 12.7, hematocrit 36.4, platelets 348. Acetaminophen less than 10. Ethyl alcohol less than 5. Salicylate is less than 6. Head CT has no acute intracranial abnormality. Progression of parenchymal volume loss and chronic white matter disease. Moderate right sphenoid sinus disease. Chest x-ray has hyperinflation and no acute disease. No infiltrates. Because of her shoulder pain, I reviewed her shoulder x-ray from 10/2016 and she has mild osteoarthritis of the right glenohumeral joint. I also reviewed her abdominal ultrasound from 11/2015, and she has a normal abdominal ultrasound. The liver is normal size and echotexture. ASSESSMENT AND PLAN 1. Acute delirium. Presents as sudden awakening, inability to know what to do with common place items, confusion, disorientation. Associated with alcohol withdrawal and benzodiazepine use that has been either given or withdrawn suddenly. So she has had a [place] effect with some of these medications. Her delirium appears to be completely resolved at this time. Attestation that she will be admitted less than 96 hours. 2. Mild chronic obstructive pulmonary disease exacerbation without hypoxia. No real acute respiratory failure. She will be treated with IV steroids, nebulizers. No antibiotics at this time. 3. Alcohol abuse. At this time, I think she is not in alcohol withdrawal. There is no hypertension, no tachycardia. No tremors. No diaphoresis. Last drink was 02/18/2018. While she does have a history of alcohol withdrawal seizures, I do not think that is what happened to her in the electrical systems drafter hours. She says that her lips are fine, has not bitten her tongue. She did not have urinary incontinence when she woke up. She will get a banana bag. For caution sake she will be placed on CIWA protocol. 4. Tobacco abuse and tobacco withdrawal. Nicotine patch. 5. Chronic pain syndrome. Vicodin t.i.d. will be resumed. She is lamenting that her primary care provider's office seems to be cutting back on her opiates and it is getting harder and harder to get them. I carefully explained to her that federal laws have been slowly changing. It is getting much harder for primary care providers to continue to give long-term opiates to patients without making a concerted effort in either tapering the medications or sending the patient to a certified pain triage clinician. She has problems with transportation. Problems with finances. I explained to her that federal laws do not seem to really take those things into account. She might want to consider figuring out how she could get to the pain clinic through her friends or neighbors or through mass transit if that ends up happening to her. She has no intention of leaving the ransom. 6. Deep vein thrombosis prophylaxis will be Lovenox. 7. CODE STATUS: DO NOT RESUSCITATE. She states that she would never live in a assisted. If it came time for her to be placed in a longterm facility, she would rather stay in her own apartment with comfort palliative measures only, and even Hospice if the case may be. If she has sudden cessation of her heartbeat, or stops breathing because of acute respiratory failure, she does not want to be intubated nor does she want to receive CPR. TD: 02/26/2018 16:08 MTDD
== END 2018-02-27 13:48 | disposition home or self-care (01) ==
LOC: ED 07:47 → MS2 11:05
PROVIDERS: ADMIT Specialist; ATTEND Specialist
DX: R41.0 Disorientation, unspecified (principal); J44.1 Chronic obstructive pulmonary disease with (acute) exacerbation; F17.210 Nicotine dependence, cigarettes, uncomplicated; F10.10 Alcohol abuse, uncomplicated; Z79.891 Long term (current) use of opiate analgesic; Z79.899 Other long term (current) drug therapy; F41.8 Other specified anxiety disorders; G89.4 Chronic pain syndrome; N39.0 Urinary tract infection, site not specified; I10 Essential (primary) hypertension; B96.20 Unspecified Escherichia coli [E. coli] as the cause of diseases classified elsewhere; E11.9 Type 2 diabetes mellitus without complications; E78.5 Hyperlipidemia, unspecified; Z66 Do not resuscitate; G25.3 Myoclonus; M19.011 Primary osteoarthritis, right shoulder; R44.3 Hallucinations, unspecified; R09.02 Hypoxemia
CPT/HCPCS: 36415; 70450; 71046; 80053; 81001; 83036; 83690; 83735; 84484; 85025; 87086; 87181; 93005; 94640; 94761; 96365; 96366; 96367; 96368; 96375; 96376; 99284; A9270; G0378; J2060; J3411; J7040; 80306; 80307; 80320; 80329; 81003

== ENCOUNTER 2018-04-20 14:48 | Outpatient (CLI) | payer MEDICARE, MEDICAID | END 2018-04-20 14:49 | disposition critical access hospital (66) | LOC: EMS 14:48 | PROVIDERS: ATTEND Surgery | DX: R11.2 Nausea with vomiting, unspecified (principal); R19.7 Diarrhea, unspecified; R06.2 Wheezing | CPT/HCPCS: A0425; A0427 ==

== ENCOUNTER 2018-04-20 15:07 | Emergency (ER) | payer MEDICARE, MEDICAID ==
--- NOTE | 2018-04-20 15:11 | ED Physician Documentation ---
PD HPI NVD - Stated complaint Stated Complaint: ETOH WITHDRAWL - History obtained from History obtained from: Patient PD PAST MEDICAL HISTORY - Past Medical History Cardiovascular: Hypertension, High cholesterol Respiratory: COPD Endocrine/Autoimmune: Type 2 diabetes - Past Surgical History Past Surgical History: Yes - Present Medications Home Medications: Ambulatory Orders Medication Instructions Recorded Confirmed Ondansetron Odt [Zofran Odt] 4 mg TL Q6H PRN #10 tablet 02/24/18 02/26/18 ALPRAZolam [Alprazolam] 1 mg PO BID PRN 02/26/18 02/26/18 Aclidinium [place] [Tudorza 1 inh INH BID 02/26/18 02/26/18 Pressair] Albuterol Sulfate [Proair Hfa 2 puffs INH Q4H PRN 02/26/18 02/26/18 Inhaler] Atorvastatin Calcium 10 mg PO QPM 02/26/18 02/26/18 Hydrocodone/Acetaminophen 1 tab PO BID PRN 02/26/18 02/26/18 [Hydrocodone-Acetamin 7.5-325] Lisinopril 20 mg PO BID 02/26/18 02/26/18 Metformin HCl 850 mg PO BIDWM 02/26/18 02/26/18 Metoprolol Succinate [Toprol Xl] 50 mg PO BID 02/26/18 02/26/18 Pantoprazole [Protonix] 40 mg PO QDAC 02/26/18 02/26/18 Venlafaxine HCl [Venlafaxine HCl 75 mg PO BID 02/26/18 02/26/18 ER] Sulfamethox/Trimeth 800/160 1 tab PO BID #13 tablet 02/27/18 [Bactrim Ds] - Allergies Allergies/Adverse Reactions: Allergies Allergy/AdvReac Type Severity Reaction Status Date / Time No Known Drug Allergies Allergy Verified 02/24/18 04:38 - Social History Does the pt smoke?: Yes Smoking Status: Current every day smoker Does the pt drink ETOH?: Yes Does the pt have substance abuse?: No - Immunizations Immunizations are current?: Yes Results - Vitals Vitals: Oxygen O2 Source Room air
[2018-04-20] MEDS ORDERED: MULTIVITAMIN TABLET PO STA (15:15)
[2018-04-20] MEDS ORDERED: THIAMINE 100 MG TABLET PO STA (15:15)
[2018-04-20] MEDS ORDERED: ONDANSETRON ODT 4 MG TABLET TL STA (15:15)
[2018-04-20] MEDS ORDERED: LORazepam 0.5 MG TABLET PO STA (15:15)
--- NOTE | 2018-04-20 15:18 | ED Physician Documentation ---
PD HPI MHE - Stated complaint Stated Complaint: ETOH WITHDRAWL - History obtained from History obtained from: Patient, EMS - History of Present Illness Primary symptom: Other (72-year-old woman with long history of alcohol abuse requests help with alcohol withdrawal symptoms. She has been tapering down her alcohol had one beer today and yesterday only had 3 regular beers. She feels shaky, she feels like she might have diarrhea but has not had diarrhea. No hallucinations or headache.) Review of Systems Constitutional: reports: Sweats. denies: Fever, Chills Cardiac: denies: Chest pain / pressure, Palpitations Respiratory: denies: Dyspnea, Cough GI: denies: Abdominal Pain PD PAST MEDICAL HISTORY - Past Medical History Cardiovascular: Hypertension, High cholesterol Respiratory: COPD Endocrine/Autoimmune: Type 2 diabetes - Past Surgical History Past Surgical History: Yes - Present Medications Home Medications: Ambulatory Orders Medication Instructions Recorded Confirmed Ondansetron Odt [Zofran Odt] 4 mg TL Q6H PRN #10 tablet 02/24/18 02/26/18 ALPRAZolam [Alprazolam] 1 mg PO BID PRN 02/26/18 02/26/18 Aclidinium [place] [Tudorza 1 inh INH BID 02/26/18 02/26/18 Pressair] Albuterol Sulfate [Proair Hfa 2 puffs INH Q4H PRN 02/26/18 02/26/18 Inhaler] Atorvastatin Calcium 10 mg PO QPM 02/26/18 02/26/18 Hydrocodone/Acetaminophen 1 tab PO BID PRN 02/26/18 02/26/18 [Hydrocodone-Acetamin 7.5-325] Lisinopril 20 mg PO BID 02/26/18 02/26/18 Metformin HCl 850 mg PO BIDWM 02/26/18 02/26/18 Metoprolol Succinate [Toprol Xl] 50 mg PO BID 02/26/18 02/26/18 Pantoprazole [Protonix] 40 mg PO QDAC 02/26/18 02/26/18 Venlafaxine HCl [Venlafaxine HCl 75 mg PO BID 02/26/18 02/26/18 ER] Sulfamethox/Trimeth 800/160 1 tab PO BID #13 tablet 02/27/18 [Bactrim Ds] Lorazepam [Ativan] 1 mg PO TID PRN #10 tablet 04/20/18 Ondansetron Odt [Zofran] 4 mg TL Q6H PRN #10 tablet 04/20/18 - Allergies Allergies/Adverse Reactions: Allergies Allergy/AdvReac Type Severity Reaction Status Date / Time No Known Drug Allergies Allergy Verified 02/24/18 04:38 - Social History Does the pt smoke?: Yes Smoking Status: Current every day smoker Does the pt drink ETOH?: Yes Does the pt have substance abuse?: No - Immunizations Immunizations are current?: Yes PD ED PE NORMAL - Vitals Vital signs reviewed: Yes - General General: Alert and oriented X 3, No acute distress - HEENT HEENT: PERRL, EOMI - Neck Neck: Supple, no meningeal sign, No bony TTP - Neuro Neuro: Alert and oriented X 3, 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 Given outpatient resources to help with detoxification. Departure - Departure Disposition: 01 Home, Self Care Clinical Impression: Alcohol withdrawal syndrome Qualifiers: Complication of substance-induced condition: uncomplicated Qualified Code(s): F10.230 - Alcohol dependence with withdrawal, uncomplicated Condition: Good Record reviewed to determine appropriate education?: Yes Instructions: ED Withdrawal Alcohol Prescriptions: Lorazepam [Ativan] 1 mg PO TID PRN #10 tablet PRN Reason: Anxiety Ondansetron Odt [Zofran] 4 mg TL Q6H PRN #10 tablet PRN Reason: Nausea / Vomiting
[2018-04-20 15:55] VITALS: BP 120/78
== END 2018-04-20 16:11 | disposition home or self-care (01) ==
LOC: EDUNIT# → ED 15:07
DX: F10.230 Alcohol dependence with withdrawal, uncomplicated (principal); I10 Essential (primary) hypertension; E11.9 Type 2 diabetes mellitus without complications; J44.9 Chronic obstructive pulmonary disease, unspecified; Z79.84 Long term (current) use of oral hypoglycemic drugs; F17.200 Nicotine dependence, unspecified, uncomplicated
CPT/HCPCS: 99283; A9270; Q0162

== ENCOUNTER 2019-02-06 12:40 | Outpatient (CLI) | payer MEDICARE, MEDICAID ==
--- NOTE | 2019-02-08 14:34 | CT Report ---
Reason: NICOTINE ABUSE/DEPENDENCE, GREATER THAN 20 PACK YE Procedure Date: 02/06/2019 Accession Number: [id number] / [id number] Procedure: CT - Low Dose Lung Cancer Screen CPT Code: FULL RESULT: EXAM CT LUNG SCREEN EXAM DATE: 02/06/2019 01:05 PM. HISTORY: 73-year-old patient with greater than 99-oook-neao smoking history. Currently smoking: Yes. Years since quittin. COMPARISON: None. TECHNIQUE: CT examination of the entire thorax without contrast was performed using low-dose technique. Thin section coronal, axial, sagittal and MIP axial images were obtained. In accordance with CT protocol optimization, one or more of the following dose reduction techniques were utilized for this exam: automated exposure control, adjustment of mA and/or KV based on patient size, or use of iterative reconstructive technique. FINDINGS: Nodules: Right upper lobe: 5 mm solid pulmonary nodule image 22 series 4. 5 mm solid pulmonary nodule image 24 series 4. 4 mm solid pulmonary nodule image 27 series 4. Right middle lobe: 9 mm groundglass pulmonary nodule medial aspect image 88 series 4. 8 mm groundglass pulmonary nodule image 114 series 4. Right lower lobe: 16 mm semisolid pulmonary nodule with internal 8 mm and 9 mm solid components images 109 - 114 series 4. Left upper lobe: 3.2 cm groundglass pulmonary nodule images 71-82 series 4. Left lower lobe: None. Emphysema: None. Pleura: Unremarkable. Aorta: Atherosclerotic deposition but no aneurysmal dilatation. Mediastinum: Unremarkable. Coronary calcifications: Mild 3 vessel coronary artery calcium. Other pulmonary findings: Nonspecific groundglass opacities in the right middle lobe and left lung base. Other extrapulmonary findings: None. IMPRESSION: Lung-RADS ASSESSMENT CATEGORY: IVb. - Suspicious. Assessment based on 16 mm semisolid pulmonary nodule in the right lower lobe. Probability of malignancy: 15% RECOMMENDATION: Recommended follow up based on ACR Lung-RADS Version 1.1 Guidelines. Appropriate action is recommended. Guidelines recommend chest CT with and without contrast versus PET CT versus tissue sampling based on clinical context/comorbidities. RADIA
== END 2019-02-06 12:41 | disposition home or self-care (01) ==
LOC: DI 12:40
PROVIDERS: ATTEND Physician Assistant
DX: Z12.2 Encounter for screening for malignant neoplasm of respiratory organs (principal); F17.210 Nicotine dependence, cigarettes, uncomplicated

== ENCOUNTER 2019-03-12 09:32 | Outpatient (CLI) | payer MEDICARE, MEDICAID ==
[2019-03-12 10:08] LABS: CALCIUM 8.6 mg/dL (8.5-10.3); CREATININE 1.2 mg/dL (0.4-1.0)
[2019-03-12] MEDS ORDERED: IOVERSOL 320 100 ML VIAL IVP ONE ×2 (10:11→11:07)
--- NOTE | 2019-03-15 16:30 | CT Report ---
Reason: ABNORMAL CHEST CT SCAN Procedure Date: 03/12/2019 Accession Number: [id number] / [id number] Procedure: CT - CHEST W CPT Code: FULL RESULT: EXAM: CT CHEST WITH IV CONTRAST EXAM DATE: 03/12/2019 11:02 AM. CLINICAL HISTORY: Abnormal chest CT scan. COMPARISONS: CHEST SCREEN LOW DOSE W/O 02/06/2019 12:59 PM. TECHNIQUE: Routine helical CT imaging was performed through the chest. IV contrast: 80 mL Optiray 320. Reconstructions: Coronal and sagittal. In accordance with CT protocol optimization, one or more of the following dose reduction techniques were utilized for this exam: automated exposure control, adjustment of mA and/or KV based on patient size, or use of iterative reconstructive technique. FINDINGS: Lungs/Pleura: Stable 5 mm right upper lobe nodule image 8 series 4. Stable right upper lobe 5 mm nodule image 9. Third right upper lobe nodule near the lung apex is also not enlarged, partially obscured by volume averaging. Previously seen groundglass in the right middle lobe distribution has decreased in conspicuity with the groundglass nodules in this area no longer clearly identifiable. Nodular acute airspace disease in the right lower lobe has resolved. Persistence of groundglass focus in the left upper lobe, up to 3.1 cm on image 29. Mediastinum: Atherosclerotic aorta without aneurysm. No pericardial effusion. A few prominent lymph nodes are noted, no lymphadenopathy by size criteria. No hilar lymphadenopathy. Mild three-vessel coronary calcifications. Bones: Remote left-sided rib fractures. No aggressive osseous lesions. Visualized Abdomen: Interval appearance of the pancreatic tail, not significantly different from the recent study. Other: None. IMPRESSION: Resolution of previously seen right lower lobe nodularities, acute airspace disease. Follow-up imaging based on most suspicious nodule, the 3.1 cm left upper lobe groundglass nodule. Per Lung-RADS guidelines, nonsolid nodules greater than 30 mm which demonstrate stability or slow growth should undergo continued surveillance at 12-month intervals. RADIA
== END 2019-03-12 09:33 | disposition home or self-care (01) ==
LOC: LAB 09:32 → DI 09:33
PROVIDERS: ATTEND Physician Assistant
DX: R91.8 Other nonspecific abnormal finding of lung field (principal)
CPT/HCPCS: 36415; 71260; 80048; Q9967

== ENCOUNTER 2019-07-13 11:12 | Outpatient (CLI) | payer MEDICARE, MEDICAID ==
[2019-07-13 18:43] LABS: BASOPHILS % (AUTO) 0.5 %; EOSINOPHILS # (AUTO) 0.2 10^3/uL (0.0-0.7); HGB - HEMOGLOBIN 11.7 g/dL (12.0-16.0); LYMPHOCYTES # (AUTO) 2.6 10^3/uL (1.5-3.5); LYMPHOCYTES % (AUTO) 33.9 %; MEAN CORPUSCULAR HEMOGLOBIN 31.7 pg (27.0-31.0); MEAN CORPUSCULAR HGB CONC 31.9 g/dL (32.0-36.0); MEAN CORPUSCULAR VOLUME 99.5 fL (81.0-99.0); MEAN PLATELET VOLUME 9.6 fL (7.9-10.8); MONOCYTES # (AUTO) 0.5 10^3/uL (0.0-1.0); MONOCYTES % (AUTO) 6.8 %; NEUTROPHILS # (AUTO) 4.3 10^3/uL (1.5-6.6); NEUTROPHILS % (AUTO) 56.3 %; PLT - PLATELET COUNT 459 10^3/uL (130-450); RED BLOOD COUNT 3.69 10^6/uL (4.20-5.40); WHITE BLOOD COUNT 7.7 x10^3/uL (4.8-10.8)
[2019-07-13 19:16] LABS: ALBUMIN 3.9 g/dL (3.2-5.5); ALBUMIN/GLOBULIN RATIO 1.3 (1.0-2.2); ALKALINE PHOSPHATASE 68 IU/L (42-121); ALT ALANINE AMINOTRANSFERASE 18 IU/L (10-60); AST ASPARTATE AMINOTRANSFERASE 22 IU/L (10-42); BILIRUBIN,TOTAL 0.5 mg/dL (0.2-1.0); BUN - BLOOD UREA NITROGEN 21 mg/dL (6-20); CALCIUM 7.9 mg/dL (8.5-10.3); CARBON DIOXIDE - CO2 20 mmol/L (21-32); CHLORIDE 103 mmol/L (101-111); CHOL/HDL RATIO 2.8 (<4.4); CHOLESTEROL 145 mg/dL; CREATININE 1.4 mg/dL (0.4-1.0); GFR - MDRD 37 (>89); GLUCOSE 111 mg/dL (70-100); HDL CHOLESTEROL 51 mg/dL; LDL CHOLESTEROL,CALCULATED 36 mg/dL; LDL/HDL RATIO 0.7 (<4.4); SODIUM 137 mmol/L (135-145); VLDL CHOLESTEROL 58 mg/dL
[2019-07-13 19:34] LABS: MAGNESIUM 0.5 mg/dL (1.7-2.8)
[2019-07-13 19:46] LABS: HB2 TOTAL 12.1 g/dL; HEMOGLOBIN A1C 0.53 g/dL; HEMOGLOBIN A1C % 6.2 % (4.6-6.2)
[2019-07-13 20:19] LABS: FOLATE > 49.60 ng/mL (5.90 - >24.8)
== END 2019-07-13 23:59 | disposition home or self-care (01) ==
LOC: LAB.WCP 11:12
PROVIDERS: ATTEND Physician Assistant
DX: E11.9 Type 2 diabetes mellitus without complications (principal); E83.42 Hypomagnesemia; E78.5 Hyperlipidemia, unspecified; E03.9 Hypothyroidism, unspecified; E53.8 Deficiency of other specified B group vitamins; E55.9 Vitamin D deficiency, unspecified
CPT/HCPCS: 36415; 80053; 80061; 82306; 82607; 82746; 83036; 83721; 83735; 84443; 85025

== ENCOUNTER 2019-07-30 10:39 | Outpatient (CLI) | payer MEDICARE, MEDICAID ==
--- NOTE | 2019-07-30 15:12 | XRAY Report ---
Reason: ACUTE EXACERBATION OF COPD Procedure Date: 07/30/2019 Accession Number: [id number] / [id number] Procedure: WCP - Chest 2 View X-Ray CPT Code: 23879 Final Report FULL RESULT: EXAM: CHEST RADIOGRAPHY EXAM DATE: 07/30/2019 11:15 AM. CLINICAL HISTORY: ACUTE EXACERBATION OF COPD. COMPARISON: CHEST 2 VIEW 02/26/2018 8:06 AM. TECHNIQUE: 2 views. FINDINGS: Lungs/Pleura: No focal opacities evident. No pleural effusion. No pneumothorax. Normal volumes. Mediastinum: Heart and mediastinal contours are unremarkable. Other: None. IMPRESSION: No focal consolidation. RADIA
== END 2019-07-30 10:40 | disposition home or self-care (01) ==
LOC: DI.WCP 10:39
PROVIDERS: ATTEND Physician Assistant
DX: J44.1 Chronic obstructive pulmonary disease with (acute) exacerbation (principal)
CPT/HCPCS: 71046

== ENCOUNTER 2020-01-05 07:00 | Outpatient (CLI) | payer MEDICARE, MEDICAID | END 2020-01-05 23:59 | disposition home or self-care (01) | LOC: LAB.R 07:00 | PROVIDERS: ATTEND Physician Assistant | DX: R31.9 Hematuria, unspecified (principal) | CPT/HCPCS: 87086 ==

== ENCOUNTER 2020-02-02 08:30 | Outpatient (CLI) | payer MEDICARE, MEDICAID ==
[2020-02-02 18:51] LABS: ALBUMIN/GLOBULIN RATIO 1.2 (1.0-2.2); BILIRUBIN,TOTAL 0.3 mg/dL (0.2-1.0); CALCIUM 9.7 mg/dL (8.5-10.3); CREATININE 1.2 mg/dL (0.4-1.0); TOTAL PROTEIN 7.3 g/dL (6.7-8.2)
[2020-02-02 19:58] LABS: BILIRUBIN,URINE NEGATIVE (NEGATIVE); GLUCOSE, URINE (UA) NEGATIVE (NEGATIVE); KETONES,URINE (UA) NEGATIVE (NEGATIVE); LEUKOCYTE ESTERASE, URINE NEGATIVE (NEGATIVE); NITRITE,URINE NEGATIVE (NEGATIVE); OCCULT BLOOD,URINE TRACE-INTA (NEGATIVE); PH,URINE 7.5 PH (5.0-7.5); PROTEIN,URINE 100 mg/dL (NEGATIVE); UROBILINOGEN,URINE 0.2 (NORMAL) E.U./dL (NORMAL)
[2020-02-02 20:17] LABS: BACTERIA,URINE Moderate /HPF (None Seen); CLARITY,URINE CLEAR (CLEAR); RBC,URINE 0-5 /HPF (0-5); SQUAMOUS EPITHELIAL CELL,UR FEW Squamous (<= Few)
== END 2020-02-02 08:31 | disposition home or self-care (01) ==
LOC: LAB.WCP 08:30
PROVIDERS: ATTEND Physician Assistant
DX: E87.5 Hyperkalemia (principal); R31.9 Hematuria, unspecified
CPT/HCPCS: 36415; 80053; 81001; 87077; 87086; 87181

== ENCOUNTER → 2020-03-20 | Outpatient (CLI) | payer MEDICARE, MEDICAID ==
[2020-03-20 18:18] LABS: ALBUMIN 3.5 g/dL (3.2-5.5); BILIRUBIN,TOTAL 0.3 mg/dL (0.2-1.0); CALCIUM 9.9 mg/dL (8.5-10.3); CREATININE 1.2 mg/dL (0.4-1.0); MAGNESIUM 1.6 mg/dL (1.7-2.8); TOTAL PROTEIN 7.1 g/dL (6.7-8.2)
== END ==
LOC: LAB.WCP 08:00
PROVIDERS: ATTEND Physician Assistant
DX: E87.5 Hyperkalemia (principal); E83.42 Hypomagnesemia
CPT/HCPCS: 36415; 80053; 83735

== ENCOUNTER 2020-04-03 08:00 | Outpatient (CLI) | payer MEDICARE, MEDICAID | END 2020-04-03 23:59 | disposition home or self-care (01) | LOC: LAB 08:00 | PROVIDERS: ATTEND Ophthalmology | DX: Z01.818 Encounter for other preprocedural examination (principal); H25.812 Combined forms of age-related cataract, left eye; Z20.828 Contact with and (suspected) exposure to other viral communicable diseases ==

== ENCOUNTER 2020-04-06 08:01 | Day surgery (SDC) | payer MEDICARE, MEDICAID ==
[~2020-04-06 08:01] MED LIST: KETOROLAC 0.45% OPHTH DROPS ONE; PHENYLEPHRINE 2.5% OPHTH 2 ML DROPS ONE; PROPARACAINE 0.5% OPHTH DROPS 15 ML ONE
[2020-04-06] MEDS ORDERED: fentaNYL 100 MCG/2 ML VIAL IVP ONE (09:19)
[2020-04-06] MEDS ORDERED: MIDAZOLAM 2 MG/2 ML VIAL IVP ONE (09:19)
[2020-04-06] MEDS ORDERED: BSS/LIDOCAINE/EPINEPHRINE 1 ML SYRINGE IO ONE (09:20)
[2020-04-06] MEDS ORDERED: CHONDR SULF/HYALURONATE SYRINGE IO ONE (09:20)
[2020-04-06] MEDS ORDERED: TRIAMCIN/MOXIFLOX OPHTHALMIC 0.6 ML VIAL IO ONE ×2 (09:20→13:23)
[2020-04-06] MEDS ORDERED: BRIMONIDINE 0.2% OPHTH DROPS 5 ML OPTH ONE (09:20)
[2020-04-06] MEDS ORDERED: PROPARACAINE 0.5% OPHTH DROPS 15 ML EACHEYE ONE (09:20)
[2020-04-06] MEDS ORDERED: VANCOMYCIN OPHTHALMI 8MG/0.8ML 8 MG/0.8 ML SYRINGE IO ONE ×2 (09:20→13:24)
[2020-04-06] MEDS ORDERED: TIMOLOL 0.5% OPHTH DROPS OPTH ONE (09:20)
[2020-04-06] MEDS ORDERED: EPINEPHrine 1 MG/ML AMP IR ONE (09:20)
--- NOTE | 2020-04-06 09:30 | ANESTHESIA ---
Pre-Anesthesia VS, & Labs - Diagnosis L Cataract - Procedure Phaco IOL Vital Signs: Temp Pulse Resp BP Pulse Ox 36.4 C L 86 14 156/66 H 94 04/06/20 08:15 04/06/20 08:15 04/06/20 08:15 04/06/20 08:15 04/06/20 08:15 Height: 5 ft 8 in Weight (kg): 79 kg Body Mass Index: 26.4 BMI Classification: Overweight - NPO >8 hours - Is Patient ?: No - Lab Results Current Lab Results: Laboratory Tests 04/06/20 08:34: POC Whole Bld Glucose 132 H Home Medications and Allergies Home Medications: Ambulatory Orders Amlodipine Besylate [Norvasc] 5 mg PO BID 04/05/20 Aripiprazole [Abilify] 2 mg PO BID 04/05/20 Buspirone HCl 30 mg PO TID 04/05/20 Gabapentin 900 mg PO TID 04/05/20 rOPINIRole [Requip] 0.5 mg PO QPM 04/05/20 Aclidinium Polo [Tudorza Pressair] 1 inh INH BID 02/26/18 Albuterol Sulfate [Proair Hfa Inhaler] 2 puffs INH Q4H PRN 02/26/18 Atorvastatin Calcium 10 mg PO QPM 02/26/18 Metformin HCl 550 mg PO BIDWM 02/26/18 Metoprolol Succinate [Toprol Xl] 50 mg PO BID 02/26/18 Venlafaxine HCl [Venlafaxine HCl ER] 75 mg PO BID 02/26/18 Amlodipine Besylate [Norvasc] 5 mg PO BID 04/05/20 Aripiprazole [Abilify] 2 mg PO BID 04/05/20 Buspirone HCl 30 mg PO TID 04/05/20 Gabapentin 900 mg PO TID 04/05/20 rOPINIRole [Requip] 0.5 mg PO QPM 04/05/20 Allergies/Adverse Reactions: Allergies Allergy/AdvReac Type Severity Reaction Status Date / Time No Known Drug Allergies Allergy Verified 02/24/18 04:38 Anes History & Medical History - Anesthetic History Anesthesia Complications: reports: No previous complications Family history of Anesthesia Complications: Denies Family history of Malignant Hyperthermia: Denies - Medical History Cardiovascular: reports: Hypertension, High cholesterol Pulmonary: reports: COPD, Other (Chronic Brobchitis with rhonchorus cough) Gastrointestinal: reports: GI bleed, Ulcers Urinary: reports: None Neuro: reports: Peripheral neuropathy, Seizure disorder Musculoskeletal: reports: Osteoarthritis Endocrine/Autoimmune: reports: Type 2 diabetes Skin: reports: None Smoking Status: Current every day smoker Psychosocial: reports: Anxiety, Substance abuse, Other (Panic, PTSD, Claustrophobia) - Surgical History General: Colonoscopy, EGD Gynecologic: Tubal ligation Exam General: Oriented x3, Cooperative Dental: Dentures full Upper, Dentures full Lower Mouth Openin Fingerbreadth Neck Mobility: Reduced Mallampati classification: III Thyromental Distance: 4-6 cm Respiratory: Decreased breath sounds, Rhonchi (Had her use her own inhaler, several puffs), Expiration Cardiovascular: Regular rate Mental/Cognitive Status: Alert/Oriented X3 Plan Anesthesia Type: MAC Consent for Procedure(s) Verified and Reviewed: Yes Code Status: Attempt Resuscitation ASA classification: 3-Severe systemic disease Is this case an emergency?: No (Consent obtained)
[2020-04-06 09:44] VITALS: BP 151/50
[2020-04-06] MEDS ORDERED: LACTATED RINGERS 100 ML IV ONE (09:51)
--- NOTE | 2020-04-06 10:42 | ANESTHESIA POST OP EVALUATION ---
Anesthesia Post Eval - Post Anesthesia Eval Vitals: Last Vital Signs Temp 37.3 C 04/06/20 09:38 Pulse 80 04/06/20 09:38 Resp 20 04/06/20 09:38 BP 151/50 H 04/06/20 09:38 Pulse Ox 92 04/06/20 09:38 CV Function Including HR & BP: positive: Stable Pain Control: positive: Satisfactory Nausea & Vomiting: positive: Negative Mental Status: positive: Baseline Respiratory Status: Airway Patent Hydration Status: Satisfactory Anesthesia Complications: positive: None
--- NOTE | 2020-04-06 11:08 | OPERATIVE REPORT ---
DATE OF SERVICE: 04/06/2020 Physician: Jamie Brothers MD PREOPERATIVE DIAGNOSIS: Visually significant cataract, left eye. This was her first cataract surgery. POSTOPERATIVE DIAGNOSIS: Visually significant cataract, left eye. This was her first cataract surgery. PROCEDURE: Phacoemulsification with posterior chamber intraocular lens implant, left eye. SURGEON: Jamie Brothers MD ANESTHESIA: Monitored anesthesia care. COMPLICATIONS: None. OPERATIVE INDICATIONS: This is a 74-year-old woman with progressive vision loss in the left eye due to 2+ nuclear sclerotic, 3+ cortical, vacular, and trace posterior subcapsular cataract. Best corrected visual acuity was 20/30, with glare to 20/150 in the left eye. Indications for surgery were overall decrease in vision, difficulty seeing words on a computer screen, difficulty reading; difficulty seeing words, closed caption or game scores on TV; difficulty driving in low light or at night, difficulty driving at night because of headlights from other vehicles, difficulty with glare or bright lights in any situation; and also has difficulty with needle work, writing, and cooking. She was consented at length concerning risks and benefits of cataract surgery, after which she expressed a desire to proceed with surgery. OPERATIVE PROCEDURE: Patient was taken into OR #3 and placed under monitored anesthesia care. A surgical timeout was conducted confirming correct patient, correct procedure, and correct surgical site. She was given topical anesthesia, and prepped and draped in the usual sterile fashion. The eye was entered at the 6 and 3-o'clock positions. Intracameral Shugarcaine was injected into the anterior chamber, followed by Viscoat. A continuous-tear curvilinear capsulorrhexis was performed. The nucleus was hydrodissected and phacoemulsified. The cortex was evacuated using automated infusion and aspiration. Provisc was injected in the capsular bag and a 23.5 diopter intraocular lens inserted into the bag. Infusion and aspiration were used to evacuate the viscoelastic materials. The eye was inflated to physiologic pressure using a balanced salt solution and found to be watertight. Approximately 0.25 mL of a mixture of triamcinolone and moxifloxacin was injected transsclerally into the vitreous in the inferotemporal quadrant. An additional 0.55 mL of a mixture of triamcinolone, moxifloxacin, and vancomycin was injected subconjunctivally in the superior quadrant for infection and inflammation prophylaxis. Wound integrity was checked with Weck-Soledad sponges. The patient was taken from the operating room in good condition and given postoperative instructions. TD: 04/06/2020 09:58 SUNSHINE
[2020-04-06] MEDS ORDERED: EPINEPHrine 1 MG/ML AMP ONE (13:23)
[2020-04-06] MEDS ORDERED: BSS/LIDOCAINE/EPINEPHRINE 1 ML SYRINGE ONE (13:24)
[2020-04-06] MEDS ORDERED: BRIMONIDINE 0.2% OPHTH DROPS 5 ML ONE (13:24)
[2020-04-06] MEDS ORDERED: TIMOLOL 0.5% OPHTH DROPS ONE (13:24)
== END 2020-04-06 08:02 | disposition home or self-care (01) ==
LOC: SDS 08:01
PROVIDERS: ATTEND Ophthalmology
DX: E11.36 Type 2 diabetes mellitus with diabetic cataract (principal); H25.812 Combined forms of age-related cataract, left eye; Z79.84 Long term (current) use of oral hypoglycemic drugs; I10 Essential (primary) hypertension; J44.9 Chronic obstructive pulmonary disease, unspecified; F17.200 Nicotine dependence, unspecified, uncomplicated; F41.9 Anxiety disorder, unspecified
CPT/HCPCS: 66984; A9270; J3490; J7120; V2632

== ENCOUNTER 2020-04-26 10:32 | Outpatient (CLI) | payer MEDICARE, MEDICAID | END 2020-04-26 10:33 | disposition home or self-care (01) | LOC: DI 10:32 | PROVIDERS: ATTEND Physician Assistant | DX: R60.0 Localized edema (principal); I51.7 Cardiomegaly | CPT/HCPCS: 93306 ==

== ENCOUNTER 2020-06-05 11:05 | Outpatient (CLI) | payer MEDICARE, MEDICAID | END 2020-06-05 11:06 | disposition home or self-care (01) | LOC: COV 11:05 | PROVIDERS: ATTEND Ophthalmology | DX: Z01.812 Encounter for preprocedural laboratory examination (principal); H25.811 Combined forms of age-related cataract, right eye; E11.9 Type 2 diabetes mellitus without complications; Z20.828 Contact with and (suspected) exposure to other viral communicable diseases ==

== ENCOUNTER 2020-06-08 08:08 | Day surgery (SDC) | payer MEDICARE, MEDICAID ==
--- NOTE | 2020-06-08 08:25 | ANESTHESIA ---
Pre-Anesthesia VS, & Labs - Diagnosis R senile combined cataract - Procedure extraction R cataract w/IOL Height: 5 ft 8 in - NPO >8 hours - Is Patient ?: No - Lab Results Lab results reviewed: Yes Home Medications and Allergies Aclidinium Lowry [Tudorza Pressair] 1 inh INH BID 02/26/18 Albuterol Sulfate [Proair Hfa Inhaler] 2 puffs INH Q4H PRN 02/26/18 Atorvastatin Calcium 10 mg PO QPM 02/26/18 Metformin HCl 550 mg PO BIDWM 02/26/18 Metoprolol Succinate [Toprol Xl] 50 mg PO BID 02/26/18 Venlafaxine HCl [Venlafaxine HCl ER] 75 mg PO BID 02/26/18 Amlodipine Besylate [Norvasc] 5 mg PO BID 04/05/20 Aripiprazole [Abilify] 2 mg PO BID 04/05/20 Buspirone HCl 30 mg PO TID 04/05/20 Gabapentin 900 mg PO TID 04/05/20 rOPINIRole [Requip] 0.5 mg PO QPM 04/05/20 Allergies/Adverse Reactions: Allergies Allergy/AdvReac Type Severity Reaction Status Date / Time No Known Drug Allergies Allergy Verified 02/24/18 04:38 Anes History & Medical History - Anesthetic History Anesthesia Complications: reports: No previous complications Family history of Anesthesia Complications: Denies Family history of Malignant Hyperthermia: Denies - Medical History Cardiovascular: reports: Hypertension, High cholesterol Pulmonary: reports: COPD, Other Gastrointestinal: reports: GI bleed Neuro: reports: Peripheral neuropathy, Seizure disorder Musculoskeletal: reports: Osteoarthritis Endocrine/Autoimmune: reports: Type 2 diabetes Smoking Status: Current every day smoker - Surgical History Eyes Ears Nose Throat (EENT): Cataracts, Tonsil/Adenoidectomy Gynecologic: Tubal ligation Exam General: Alert, Oriented x3, Cooperative Dental: Dentures full Upper, Dentures full Lower Mouth Openin Fingerbreadth Neck Mobility: Reduced Mallampati classification: II Respiratory: Lungs clear, Normal breath sounds, Decreased breath sounds Cardiovascular: Regular rate Neurological: Normal speech Mental/Cognitive Status: Alert/Oriented X3, Normal for patient Cognitive Status: Within normal limits Plan Anesthesia Type: MAC Consent for Procedure(s) Verified and Reviewed: Yes Code Status: Attempt Resuscitation ASA classification: 2-Mild systemic disease Is this case an emergency?: No
[2020-06-08] MEDS ORDERED: MIDAZOLAM 2 MG/2 ML VIAL ONE (08:37)
[2020-06-08] MEDS ORDERED: fentaNYL 100 MCG/2 ML VIAL ONE (08:37)
[2020-06-08] MEDS ORDERED: BRIMONIDINE 0.2% OPHTH DROPS 5 ML OPTH ONE ×2 (08:43→08:51)
[2020-06-08] MEDS ORDERED: EPINEPHrine 1 MG/ML AMP IR ONE ×2 (08:44→08:51)
[2020-06-08] MEDS ORDERED: TIMOLOL 0.5% OPHTH DROPS OPTH ONE ×2 (08:44→08:51)
[2020-06-08] MEDS ORDERED: CHONDR SULF/HYALURONATE SYRINGE IO ONE ×2 (08:44→08:51)
[2020-06-08] MEDS ORDERED: BSS/LIDOCAINE/EPINEPHRINE 1 ML SYRINGE IO ONE ×2 (08:45→08:51)
[2020-06-08] MEDS ORDERED: PROPARACAINE 0.5% OPHTH DROPS 15 ML EACHEYE ONE ×2 (08:45→08:51)
[2020-06-08] MEDS ORDERED: TRIAMCIN/MOXIFLOX OPHTHALMIC 0.6 ML VIAL IO ONE ×2 (08:45→08:51)
[2020-06-08] MEDS ORDERED: VANCOMYCIN OPHTHALMI 8MG/0.8ML 8 MG/0.8 ML SYRINGE IO ONE ×2 (08:46→08:51)
[2020-06-08] MEDS ORDERED: LACTATED RINGERS 500 ML IV ONE (09:07)
[2020-06-08 09:08] VITALS: BP 151/48
[2020-06-08] MEDS ORDERED: hydrALAZINE INJ 20 MG/ML VIAL ONE (09:55)
--- NOTE | 2020-06-08 10:42 | ANESTHESIA POST OP EVALUATION ---
Anesthesia Post Eval - Post Anesthesia Eval Vitals: Last Vital Signs Temp 36.3 C L 06/08/20 09:04 Pulse 71 06/08/20 09:04 Resp 16 06/08/20 09:04 BP 151/48 H 06/08/20 09:04 Pulse Ox 94 06/08/20 09:04 CV Function Including HR & BP: positive: Stable Pain Control: positive: Satisfactory Nausea & Vomiting: positive: Negative Mental Status: positive: Baseline Respiratory Status: Airway Patent Hydration Status: Satisfactory Anesthesia Complications: positive: None
--- NOTE | 2020-06-08 12:19 | OPERATIVE REPORT ---
DATE OF SERVICE: 06/08/2020 Physician: Jamie Brothers MD PREOPERATIVE DIAGNOSIS: Visually significant cataract, right eye. Cataract surgery was performed on the left eye on 04/06/2020. POSTOPERATIVE DIAGNOSIS: Visually significant cataract, right eye. Cataract surgery was performed o n the left eye on 04/06/2020. PROCEDURE: Phacoemulsification with posterior chamber intraocular lens implant, right eye. SURGEON: Jamie Brothers MD. ANESTHESIA: Monitored anesthesia care. COMPLICATIONS: None. OPERATIVE INDICATIONS: This is a 75-year-old woman with progressive vision loss in the right eye due to 2+ nuclear sclerotic, 2+ cortical, and vacuolar cataract. Best corrected visual acuity was 20/20 with glare to 20/80 in the right eye. She was consented at length concerning risks and benefits of cataract surgery, after which she expressed a desire to proceed with surgery. OPERATIVE PROCEDURE: The patient was taken in to OR #3 and placed under monitored anesthesia care. A surgical timeout was conducted, confirming correct patient, correct procedure, and correct surgical site. She was given topical anesthesia and prepped and draped in the usual sterile fashion. The ey e was entered at the 12 and 9 o'clock positions. Intracameral Shugarcaine was injected into the ante rior chamber followed by Viscoat. A continuous-tear curvilinear capsulorrhexis was performed. The n ucleus was hydrodissected and phacoemulsified. The cortex was evacuated using automated infusion and aspiration. Provisc was injected in the capsular bag and a 23.5 diopter intraocular lens inserted i n the bag. Infusion and aspiration were used to evacuate the viscoelastic materials. The eye was in flated to physiologic pressure using balanced salt solution and found to be watertight. Approximatel y 0.25 mL of a mixture of triamcinolone and moxifloxacin was injected transsclerally into the vitreou s in the inferotemporal quadrant. An additional 0.55 mL of a mixture of triamcinolone, moxifloxacin, and vancomycin was injected subconjunctivally in the superior quadrant for infection and inflammatio n prophylaxis. Wound integrity was checked with Weck-Soledad sponges. Patient was taken from the operat ing room in good condition and given postoperative instructions. TD: 06/08/2020 09:14
== END 2020-06-08 08:09 | disposition home or self-care (01) ==
LOC: SDS 08:08
PROVIDERS: ATTEND Ophthalmology
DX: E11.36 Type 2 diabetes mellitus with diabetic cataract (principal); H25.811 Combined forms of age-related cataract, right eye; Z79.84 Long term (current) use of oral hypoglycemic drugs; I10 Essential (primary) hypertension; J44.9 Chronic obstructive pulmonary disease, unspecified; F41.9 Anxiety disorder, unspecified; Z98.42 Cataract extraction status, left eye; F17.200 Nicotine dependence, unspecified, uncomplicated; G40.909 Epilepsy, unspecified, not intractable, without status epilepticus
CPT/HCPCS: 66984; A9270; J3490; J7120; V2632

== ENCOUNTER 2020-09-21 11:03 | Outpatient (CLI) | payer MEDICARE, MEDICAID ==
[2020-09-21 11:37] LABS: ALBUMIN 3.6 g/dL (3.2-5.5); ALBUMIN/GLOBULIN RATIO 1.1 (1.0-2.2); BILIRUBIN,TOTAL 0.5 mg/dL (0.2-1.0); CREATININE 1.4 mg/dL (0.4-1.0); POTASSIUM 5.3 mmol/L (3.5-5.0); TOTAL PROTEIN 6.9 g/dL (6.7-8.2)
[2020-09-21] MEDS ORDERED: IOVERSOL 320 100 ML VIAL IVP ONE ×2 (12:26→14:37)
--- NOTE | 2020-09-21 15:25 | CT Report ---
PROCEDURE: CHEST W INDICATIONS: ABN CHEST CT CONTRAST: IV CONTRAST: Optiray 320 ml: 100 PO CONTRAST: *NO PO CONTRAST TECHNIQUE: After the administration of intravenous contrast, 5 mm thick sections acquired from the pulmonary api stanley to the posterior costophrenic angles. 7 mm thick coronal MIP reformats were acquired. For radia tion dose reduction, the following was used: automated exposure control, adjustment of mA and/or kV according to patient size. COMPARISON: 03/12/2019. FINDINGS: Image quality: Excellent. Lungs and pleura: There is a subsolid pulmonary nodule in the lingula of the left lung which appears minimally increase d in size from the most recent prior study. It is difficult to compare the 2 studies, as the current study utilizes 1 mm thick slices in the previous study utilized 5 mm thick slices. However, when comp aring current image 143/4 and previous image 29/4, the maximum diameter appears to have increased in size from 2.5 cm to 2.9 cm. Additionally, allowing for differences in technique, the lesion may have slightly increased in its density. It is suspicious for a possible indolent adenocarcinoma or carcino ma in situ. Almost contiguous with this area and slightly lateral and superior is a second subsolid opacity which , in retrospect, was likely present on the previous study, barely perceptible, measuring 1.4 cm. Refe rence current image 128/4 and previous image 26/4. It is likely the same process. Additional some solid pulmonary nodular opacities have developed adjacent to the pleura in the left l ower lobe. Reference image 21/4, where there is a subsolid opacity measuring 1.9 cm and the second alvarez bsolid opacity measuring 1.3 cm. Multiple small subpleural nodular densities in the posterior lateral right apex are stable, consisten t with benign findings. No acute air space opacities. No pleural effusions or pneumothorax. Central and peripheral airways are patent and normal in caliber. Mediastinum: Heart size is normal. No pericardial effusion. Coronary artery calcifications. Great v essel calcifications. Incidental note is made of independent origin of the left vertebral artery off the aortic arch. There are dense aortic arch calcifications. No mediastinal or hilar adenopathy by si ze criteria. Thoracic aorta and central pulmonary arteries are normal in size. Esophagus is normal in caliber. No hiatal hernia. Bones and chest wall: No suspicious bony lesions. No vertebral body compression fractures. No axil deborah or supraclavicular adenopathy by size criteria. Thyroid gland is unremarkable. Abdomen: Visualized upper abdominal solid organs appear normal. Upper abdominal bowel loops are nor mal in caliber. IMPRESSION: 1. Apparent slight interval increase in size of the previously described groundglass opacity in the l ingula of the left lung, with apparent slight increase in density. Additionally, there are multiple o ther groundglass opacities identified, one of which, in the left upper lobe, was likely previously pr esent. The other 2, in the periphery of the left lower lobe, have developed since the previous study. 2. Findings are suspicious for possible multifocal indolent adenocarcinomas versus carcinomas in situ . 3. Coronary artery disease, ASCVD Comment: Recommend PET/CT. Reviewed by: Duke Lane MD on 09/21/2020 3:24 PM PDT Approved by: Duke Lane MD on 09/21/2020 3:24 PM PDT Station ID: [id number]
== END 2020-09-21 11:04 | disposition home or self-care (01) ==
LOC: LAB 11:03 → DI 11:04
PROVIDERS: ATTEND Physician Assistant Medical
DX: R91.8 Other nonspecific abnormal finding of lung field (principal); I25.10 Atherosclerotic heart disease of native coronary artery without angina pectoris; E11.9 Type 2 diabetes mellitus without complications
CPT/HCPCS: 36415; 71260; 80053; Q9967

== ENCOUNTER 2020-12-19 13:47 | Emergency (ER) | payer MEDICARE, MEDICAID ==
--- NOTE | 2020-12-19 13:54 | ED Physician Documentation ---
History of Present Illness - Stated complaint Stated Complaint: SEEPING LEGS,SWELLING - Additonal information Additional information: 75-year-old male has a history of COPD, CKD III, suspected Cad as well as tobaccoism presents to the emergency department for evaluation of lower extremity edema and weeping of her legs. She reported that she began having dry skin cracking and weeping of her legs about 3 months ago. It has gotten progressively worse. In early October her primary doctor did prescribe her 3 days of Lasix which improved the swelling but certainly did not improve the cracking weeping or scaling lesions. She is unfortunately being followed by hematology/oncology for an enlarging left lung nodule which is thought to be suspicious for malignancy. She underwent a CT-guided lung biopsy on 28 November which did confirm a well differentiated adenocarcinoma of the lung. 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 - Present Medications Home Medications: Ambulatory Orders Medication Instructions Recorded Confirmed Aclidinium [place] [Tudorza 1 inh INH BID 02/26/18 06/07/20 Pressair] Albuterol Sulfate [Proair Hfa 2 puffs INH Q4H PRN 02/26/18 06/07/20 Inhaler] Atorvastatin Calcium 10 mg PO DAILY 02/26/18 06/07/20 Metformin HCl 500 mg PO BIDWM 02/26/18 06/07/20 Metoprolol Succinate [Toprol Xl] 50 mg PO BID 02/26/18 06/07/20 Venlafaxine HCl [Venlafaxine HCl 75 mg PO BID 02/26/18 06/07/20 ER] Amlodipine Besylate [Norvasc] 5 mg PO DAILY 04/05/20 06/07/20 Aripiprazole [Abilify] 2 mg PO QPM 04/05/20 06/07/20 Buspirone HCl 10 mg PO DAILY 04/05/20 06/07/20 Gabapentin 300 mg PO DAILY 04/05/20 06/07/20 rOPINIRole [Requip] 0.5 mg PO QPM 04/05/20 06/07/20 Umeclidinium [place] [Incruse 62.5 mcg 11/07/20 Ellipta] Mupirocin 2% Oint [Bactroban 2% 1 applic TOP BID #22 gm 12/19/20 Oint] - Allergies Allergies/Adverse Reactions: Allergies Allergy/AdvReac Type Severity Reaction Status Date / Time No Known Drug Allergies Allergy Verified 12/19/20 14:01 - Social History Does the pt smoke?: Yes Smoking Status: Current every day smoker Does the pt drink ETOH?: Yes Does the pt have substance abuse?: No - Immunizations Immunizations are current?: No Immunizations: TDAP >10years/unknown - POLST Patient has POLST: No PD ED PE EXPANDED - General General: Alert, No acute distress, Well developed/nourished - Cardiac Cardiac: Regular Rate, Radial strong equal, Pedal strong equal, Cap refill < 2 sec - Respiratory Respiratory: Clear to ausultation deondre. No: Distress, Labored - Abdomen Abdomen: Normal Bowel sounds. No: Tender to palpation - Extremities Extremities: Normal, Deformity, Other (Bilateral lower extremities with pitting edema to mid calf. Multiple open ulcerations with clear exudate. Scaling lesions as well as hypertrophy of the skin on the lower legs is dominant. Mild erythema but no red streaking.) Results - Vitals Vitals: Vital Signs - 24 hr 12/19/20 13:53 Temperature 36.6 C Heart Rate 74 Respiratory 18 Rate Blood Pressure 116/49 L O2 Saturation 90 L Oxygen O2 Source Room air - EKG (time done) 1427 Rate: Rate (enter#) (80) Rhythm: NSR [place]: Normal Intervals: Normal CT QRS: Low voltage Ischemia: Normal ST segments Compare to prior EKG: Unchanged from prior EKG Computer interpretation: Agree with computer - Labs Labs: Laboratory Tests 12/19/20 12/19/20 12/19/20 14:14 14:14 14:14 WBC 11.0 H RBC 3.02 L Hgb 9.4 L Hct 29.5 L MCV 97.7 MCH 31.1 H MCHC 31.9 L RDW 14.1 Plt Count 464 H MPV 8.1 Neut # (Auto) 8.4 H Lymph # (Auto) 1.3 L [place] # (Auto) 1.1 H Eos # (Auto) 0.0 Baso # (Auto) 0.0 Absolute Nucleated RBC 0.00 Nucleated RBC % 0.0 PT 13.6 H INR 1.2 Sodium 137 Potassium 4.7 Chloride 104 Carbon Dioxide 23 Anion Gap 10.0 BUN 32 H Creatinine 1.6 H Estimated GFR (MDRD) 32 L Glucose 99 Calcium 8.8 Total Bilirubin 0.4 AST 15 ALT 14 Alkaline Phosphatase 107 Troponin I High Sens B-Natriuretic Peptide Total Protein 7.2 Albumin 2.9 L Globulin 4.3 H Albumin/Globulin Ratio 0.7 L Lipase 34 12/19/20 12/19/20 14:14 14:14 WBC RBC Hgb Hct MCV MCH MCHC RDW Plt Count MPV Neut # (Auto) Lymph # (Auto) [place] # (Auto) Eos # (Auto) Baso # (Auto) Absolute Nucleated RBC Nucleated RBC % PT INR Sodium Potassium Chloride Carbon Dioxide Anion Gap BUN Creatinine Estimated GFR (MDRD) Glucose Calcium Total Bilirubin AST ALT Alkaline Phosphatase Troponin I High Sens 5.9 B-Natriuretic Peptide 54 Total Protein Albumin Globulin Albumin/Globulin Ratio Lipase PD MEDICAL DECISION MAKING - ED course Complexity details: reviewed results, re-evaluated patient, d/w patient ED course: 75-year-old lady who has a history of COPD as well as recently diagnosed lung carcinoma presents to the emergency department for evaluation of chronic lower extremity ulcerations and weeping. This process began about 3 months ago. Screening labs today do not show any worrisome findings though there is a mild leukocytosis of just around 11,000. Her BNP is not elevated. Chronic kidney disease is noted but unchanged from baseline. She is anemic but again appearing to be at baseline.She has no complaints today outside of the weeping wounds. [place] [facility] [place] and came to the ER simply because she wanted further evaluation of her legs. Here in the ER I did place a wound consult unfortunately the patient was unwilling to wait for the wound consult and thus will be discharged AGAINST MEDICAL ADVICE. I have made her aware that she can self refer to wounds and given her the phone number as well as extension. I have recommended gently washing her legs with warm soap and water and applying a generous amount of antibiotic ointment as well as gauze until she is able to be seen by wounds. Emergent return precautions discussed. Departure - Departure Disposition: Against Medical Advice Clinical Impression: CKD (chronic kidney disease) stage 3, GFR 30-59 ml/min Lower extremity ulceration Qualifiers: Laterality: right Non-pressure ulcer stage: limited to breakdown of skin Qualified Code(s): L97.911 - Non-pressure chronic ulcer of unspecified part of right lower leg limited to breakdown of skin Anemia Qualifiers: Anemia type: other cause Other causes of anemia: other cause, not classified Qualified Code(s): D64.89 - Other specified anemias Condition: Stable Record reviewed to determine appropriate education?: Yes Prescriptions: Mupirocin 2% Oint [Bactroban 2% Oint] 1 applic TOP BID #22 gm Comments: Katia you came to the ER today for us to evaluate your lower extremity wounds and ulcerations. I did offer you to be seen by the wound clinic but you have declined that and are leaving AGAINST MEDICAL ADVICE. You can self refer to the wound clinic. In order to make an appointment, please call [phone] extension [phone] You can return to the ER at any point for further evaluation of your leg wounds. I do recommend that you Jose De Jesus only wash your lower extremities and warm soap and water twice a day and apply a very generous amount of any antibiotic ointment such as the Bactroban, Neosporin or bacitracin. In order to make an appointment. Continue to take your regularly prescribed medications. Continue follow-up with your oncologist and further treatment as already recommended.
[2020-12-19 14:04] VITALS: BP 116/49
[2020-12-19 14:18] LABS: BASOPHILS % (AUTO) 0.4 %; EOSINOPHILS % (AUTO) 0.1 %; HCT - HEMATOCRIT 29.5 % (37.0-47.0); HGB - HEMOGLOBIN 9.4 g/dL (12.0-16.0); LYMPHOCYTES # (AUTO) 1.3 10^3/uL (1.5-3.5); MEAN CORPUSCULAR HEMOGLOBIN 31.1 pg (27.0-31.0); MEAN CORPUSCULAR HGB CONC 31.9 g/dL (32.0-36.0); MEAN CORPUSCULAR VOLUME 97.7 fL (81.0-99.0); MEAN PLATELET VOLUME 8.1 fL (7.9-10.8); MONOCYTES # (AUTO) 1.1 10^3/uL (0.0-1.0); MONOCYTES % (AUTO) 9.9 %; NEUTROPHILS # (AUTO) 8.4 10^3/uL (1.5-6.6); NEUTROPHILS % (AUTO) 76.9 %; PLT - PLATELET COUNT 464 10^3/uL (130-450); RED BLOOD COUNT 3.02 10^6/uL (4.20-5.40); RED CELL DISTRIBUTION WIDTH 14.1 % (12.0-15.0)
[2020-12-19 14:23] LABS: INR 1.2 (0.8-1.2); PT - PROTHROMBIN TIME 13.6 secs (9.9-12.6)
[2020-12-19 14:39] LABS: ALBUMIN 2.9 g/dL (3.2-5.5); ALBUMIN/GLOBULIN RATIO 0.7 (1.0-2.2); BILIRUBIN,TOTAL 0.4 mg/dL (0.2-1.0); CALCIUM 8.8 mg/dL (8.5-10.3); CREATININE 1.6 mg/dL (0.4-1.0); POTASSIUM 4.7 mmol/L (3.5-5.0); TOTAL PROTEIN 7.2 g/dL (6.7-8.2)
--- NOTE | 2020-12-19 14:44 | XRAY Report ---
PROCEDURE: Chest 1 View X-Ray INDICATIONS: Chest Pain TECHNIQUE: One view of the chest was acquired. COMPARISON: CT of chest dated 09/21/2020 FINDINGS: Surgical changes and devices: None. Lungs and pleura: No pleural effusions or pneumothorax. Lungs are clear. Mediastinum: Mediastinal contours appear normal. Heart size is enlarged. Bones and chest wall: No suspicious bony lesions. Overlying soft tissues appear unremarkable. IMPRESSION: No acute cardiopulmonary pathology. Reviewed by: Antonio Naranjo MD on 12/19/2020 2:43 PM PDT Approved by: Antonio Naranjo MD on 12/19/2020 2:43 PM PDT Station ID: [id number]
== END 2020-12-19 15:59 | disposition left against medical advice (07) ==
LOC: ED 13:47
DX: L97.911 Non-pressure chronic ulcer of unspecified part of right lower leg limited to breakdown of skin (principal); D64.89 Other specified anemias; I12.9 Hypertensive chronic kidney disease with stage 1 through stage 4 chronic kidney disease, or unspecified chronic kidney disease; E11.22 Type 2 diabetes mellitus with diabetic chronic kidney disease; N18.30 Chronic kidney disease, stage 3 unspecified; Z79.84 Long term (current) use of oral hypoglycemic drugs; J44.9 Chronic obstructive pulmonary disease, unspecified; I25.10 Atherosclerotic heart disease of native coronary artery without angina pectoris; E11.42 Type 2 diabetes mellitus with diabetic polyneuropathy; F17.200 Nicotine dependence, unspecified, uncomplicated; C34.90 Malignant neoplasm of unspecified part of unspecified bronchus or lung
CPT/HCPCS: 36415; 80053; 83690; 83880; 84484; 85025; 85610; 93005

== ENCOUNTER 2021-01-18 14:30 | Outpatient (CLI) | payer MEDICARE, MEDICAID | END 2021-01-18 23:59 | disposition home or self-care (01) | LOC: LAB.WCP 14:30 | PROVIDERS: ATTEND Physician Assistant Medical | DX: L03.116 Cellulitis of left lower limb (principal); L03.115 Cellulitis of right lower limb | CPT/HCPCS: 87070; 87077; 87181; 87205 ==

== ENCOUNTER 2021-02-13 10:31 | Emergency (ER) | payer MEDICARE, MEDICAID ==
[2021-02-13 10:44] VITALS: BP 159/77
== END 2021-02-13 11:09 | disposition left against medical advice (07) ==
LOC: ED 10:31
DX: Z53.21 Procedure and treatment not carried out due to patient leaving prior to being seen by health care provider (principal)

== ENCOUNTER 2021-04-06 13:46 | Outpatient (CLI) | payer MEDICARE, MEDICAID ==
--- NOTE | 2021-04-06 15:53 | Ultrasound Report ---
PROCEDURE: Duplex Lwr Ext Arterial Bilat INDICATIONS: PVD TECHNIQUE: Color and pulse Doppler interrogation was performed of both lower extremity arterial systems, with im age documentation. COMPARISON: None FINDINGS: Right lower extremity: Common femoral artery: 134 cm/sec, with monophasic flow. Deep femoral artery: 67 cm/sec, with monophasic flow. Proximal superficial femoral artery: 83 cm/sec, with monophasic flow. Mid superficial femoral artery: 38 cm/sec, with monophasic flow. Distal superficial femoral artery: 48 cm/sec, with monophasic flow. Popliteal artery: 33 cm/sec, with monophasic flow. Posterior tibial artery: 41 cm/sec, with monophasic flow. Anterior tibial artery/dorsalis pedis: 30 cm/sec, with monophasic flow. Watt-scale imaging description: Mild diffuse plaque Left lower extremity: Common femoral artery: 125 cm/sec, with triphasic and biphasic flow. Deep femoral artery: 79 cm/sec, with biphasic flow. Proximal superficial femoral artery: 119 cm/sec, with triphasic flow. Mid superficial femoral artery: 83 cm/sec, with triphasic flow. Distal superficial femoral artery: 53 cm/sec, with triphasic flow. Popliteal artery: 34 cm/sec, with biphasic flow. Posterior tibial artery: 52 cm/sec, with biphasic flow. Anterior tibial artery/dorsalis pedis: 64 cm/sec, with biphasic flow. Watt-scale imaging description: Mild diffuse plaque IMPRESSION: No evidence of arterial insufficiency to the bilateral lower extremities. Reviewed by: Feliberto Jefferson MD on 04/06/2021 3:52 PM PDT Approved by: Feliberto Jefferson MD on 04/06/2021 3:52 PM PDT Station ID: [id number]
== END 2021-04-06 13:47 | disposition home or self-care (01) ==
LOC: DI 13:46
PROVIDERS: ATTEND Nurse Practitioner
DX: I73.9 Peripheral vascular disease, unspecified (principal); L97.909 Non-pressure chronic ulcer of unspecified part of unspecified lower leg with unspecified severity
CPT/HCPCS: 93925

== ENCOUNTER 2021-04-23 12:41 | Outpatient (CLI) | payer MEDICARE, MEDICAID | END 2021-04-23 12:42 | disposition home or self-care (01) | LOC: RT 12:41 | PROVIDERS: ATTEND Internal Medicine Hematology & Oncology | DX: C34.90 Malignant neoplasm of unspecified part of unspecified bronchus or lung (principal) | CPT/HCPCS: 94010 ==

== ENCOUNTER 2021-07-11 09:06 | Outpatient (CLI) | payer MEDICARE, MEDICAID ==
--- NOTE | 2021-07-12 09:52 | Nuclear Medicine Report ---
PROCEDURE: Bone Whole Body INDICATIONS: LUNG CA RADIOPHARMACEUTICAL: 25.4 mCi Tc-99m MDP IV. TECHNIQUE: Delayed whole-body scintigrams were obtained approximately 3-4 hours after intravenous injection of r adiotracer. Anterior and posterior views were acquired from vertex to feet. Additional left and rig ht oblique views of the skull and cervical spine were obtained. COMPARISON: CT chest without contrast, 06/01/[address] chest with contrast 09/21/2020 and 03/12/2019 . FINDINGS: There are multiple foci of increased uptake involving the lower cervical spine (C5) and th oracic spine (T4, T5 and T8), correlating with CT finding of sclerotic changes and severe compression fractures (T4, T5 and T8). 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 The scintigraphic findings are suspicious for osseous metastasis. IMPRESSION: 1. Foci of abnormal uptake involving the T5, T4, T5 and T8, and posterior medial aspect of the right fourth rib, highly suspicious for metastatic disease. 2. Severe compression fracture seen on the comparison CT involving T4, T5 and T8 could represent path ological fracture. MRI with and without contrast is recommended for further evaluation. Reviewed by: Sosa Garcia MD on 07/12/2021 9:49 AM PST Approved by: Sosa Garcia MD on 07/12/2021 9:49 AM PST Station ID: [id number]
== END 2021-07-11 09:07 | disposition home or self-care (01) ==
LOC: DI 09:06
PROVIDERS: ATTEND Internal Medicine Hematology & Oncology
DX: C34.12 Malignant neoplasm of upper lobe, left bronchus or lung (principal); R90.89 Other abnormal findings on diagnostic imaging of central nervous system; M48.54XA Collapsed vertebra, not elsewhere classified, thoracic region, initial encounter for fracture; I67.82 Cerebral ischemia; G31.89 Other specified degenerative diseases of nervous system
CPT/HCPCS: 70553; 78306; A9585

== ENCOUNTER 2021-07-11 09:13 | Outpatient (CLI) | payer MEDICARE, MEDICAID ==
[2021-07-11] MEDS ORDERED: GADOBUTROL 7.5 MMOL/7.5 ML VIAL ONE (09:41)
[2021-07-11] MEDS: GADOBUTROL 10 MMOL/10 ML VIAL IVP ONE (15:33)
[2021-07-11] MEDS ORDERED: GADOBUTROL 7.5 MMOL/7.5 ML VIAL IVP ONE (16:00)
--- NOTE | 2021-07-11 16:53 | MRI Report ---
PROCEDURE: Brain W/WO INDICATIONS: LUNG CA CONTRAST: IV CONTRAST: Gadavist ml: 7.5 TECHNIQUE: Noncontrast axial T1 spin echo, axial T2 fast spin echo, sagittal and axial FLAIR, coronal T2 fast sp in echo, axial gradient echo, axial diffusion and ADC through the brain. After the administration of contrast, axial and coronal T1 spin echo with fat saturation through the brain. COMPARISON: None. FINDINGS: Image quality: Motion artifact is noted. CSF spaces: Basal cisterns are patent. No extra-axial fluid collections. Ventricles are normal in size and shape. Brain: No midline shift. No intracranial bleeds or masses. No abnormal intracranial enhancement. There is cerebral volume loss for age. There is periventricular white matter chronic small vessel is chemic change. The brainstem appears normal. Diffusion-weighted images demonstrate no acute ischemi c insults. No chronic ischemic insults. Normal intravascular flow voids are present. Skull and face: Calvarial marrow is normal in signal. Orbits appear normal. Sinuses: Sinuses and mastoids appear clear. IMPRESSION: No masses or abnormal enhancement can be seen. No findings of acute or subacute infarction are seen. Age-appropriate brain parenchymal volume loss and chronic small vessel ischemic change can be seen. Reviewed by: Mika Rg MD on 07/11/2021 3:52 PM [place] Approved by: Mika Rg MD on 07/11/2021 3:[address] [facility] Station ID: [id number]
== END 2021-07-11 09:14 | disposition home or self-care (01) ==
LOC: DI 09:13
PROVIDERS: ATTEND Internal Medicine Hematology & Oncology
DX: C34.12 Malignant neoplasm of upper lobe, left bronchus or lung (principal); G31.89 Other specified degenerative diseases of nervous system; I67.82 Cerebral ischemia

== ENCOUNTER 2021-07-25 14:10 | Outpatient (CLI) | payer MEDICARE, MEDICAID ==
--- NOTE | 2021-07-25 16:11 | CONSULTATION NOTE ---
Palliative Care Consultation - Referral Referring Provider: Dr. Marley Sherman Time of Visit: 5488-0675 Referral setting: Home Referral Reason: Left lung adenocarcinoma with bone mets/Back pain/COPD - Information Sources Records reviewed: Previous records reviewed History/Review of Systems obtained from: Patient, Caregiver (Manisha) Exam limitations: No limitations - History of Present Illness Brief History of Present Illness: This is a 76-year-old female who was seen and evaluated today within her home for initial palliative care consultation due to left lingular adenocarcinoma with bone mets, back pain due to bony mets, and COPD with her caregiver, Diana present. Provider wore N95 mask. Patient has a longstanding history of tobacco use. She was noted to have an enlarging left lung nodule and initially was consulted with oncology on 11/07/2020. She had a biopsy performed on 11/29/2020 that demonstrated well differentiated adenocarcinoma with lymphatic growth pattern. She was deemed a poor candidate for chemotherapy. She was referred to radiation oncology and thoracic surgery however, it appears not to have followed up. Next presented to oncology in May 2021 where she was again referred to radiation oncology and was deemed not a surgical candidate. She had a CT of the chest performed on 08/02 that indicated progression of disease with findings concerning for underlying metastatic disease.MRI of the brain was negative for metastases and demonstrated "age-appropriate brain parenchymal volume loss and chronic small vessel ischemic changes can be seen."Patient had a PET scan that demonstrated evidence suspicious for metastatic disease. Also "severe compression fracture seen on comparison CT involving T4, T5 and T8 could represent pathologic fracture. MRI with and without contrast is recommended for further evaluation." Due to findings of bone mets primary radiation therapy was canceled as it would not contribute to her overall outcome and she is to begin immunotherapy. She is scheduled to have a port placed. She is typically having pain between her bilateral scapula most specifically to the right. Denies radiation. No numbness or tingling to the upper extremities. Is not dropping anything. Is presently prescribed oxycodone 5 mg to take every 3-4 hours as needed. She is typically taking oxycodone approximately 3-4 times per day. She finds relief with oxycodone. Pain does not awaken her from sleep. She is sleeping well. She did develop wound to her right lower extremity that began over the summer. She has been treated with courses of oral antibiotic therapy for staph infection. She continues to have a wound to her medial aspect of her right ankle. [place] [facility] [place] typically attending the area once per week. In around [place] the patient is experienced significant diarrhea and nausea with a lack of appetite. She reports that she was very ill for approximately 2 weeks. This resulted in generalized weakness and she is finally beginning to regain her strength. Her appetite is also returned. She reports a weight loss of approximately 26 pounds. Presently denies nausea, vomiting, or diarrhea. She is having routine bowel movements typically every other day. She does express some frustration regarding the length of time it has taken to move forward with treatmentRegarding a left lingular adenocarcinoma. The patient has a longstanding history of COPD in the setting of tobacco use. She continues to smoke 5 to 8 cigarettes/day on average. She is not oxygen dependent. She becomes significantly short of breath with with activity. She has not been below 88% on room air to qualify for supplemental oxygen with activity. Medical/Surgical History - Past Medical History Cardiovascular: reports: Hypertension, High cholesterol Respiratory: reports: COPD, Other Neuro: Peripheral neuropathy, Other (Restless Leg syndrome) Endocrine/Autoimmune: reports: Type 2 diabetes (no longer on metformin, last HgA1C 6.2% 02/2021), HyPOthyroidism GI: reports: GI bleed, Other (Peptic ulcer disease) : reports: Renal insuffiency HEENT: reports: Chronic vision loss Psych: reports: Anxiety, Bipolar disorder Musculoskeletal: reports: Osteoarthritis, Gout Derm: reports: Other (Cellulitis RLE; Basal cell carcinoma) MRSA Hx?: No Other Past Medical History: History of alcohol abuse, folic acid deficiency, hypomagnesemia, chronic pain syndrome (on xanax and hydrocodone in the past), left lingular adenocarcioma 11/29/2020. 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 Grew up in [place]. 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 She has 1 daughter who resides in [place]. Has a caregiver, Diana through [employer] that comes 5 days/week with contact number [phone]. Diana is present from 02-25 and on Tuesdays and 03-03. Diana has been acting as an advocate for the patient. She has lived in her present location for approximately 1 year after her present housing situation that she had been in for over 30 years was being turned into an air BNB. Family History - Family History Family History Comment/Other: Noncontributory Medications/Allergies - Medications Home Medications: Ambulatory Orders Medication Instructions Recorded Confirmed Albuterol Sulfate [Proair Hfa 2 puffs INH Q4H PRN 02/26/18 06/26/21 Inhaler] Atorvastatin Calcium 10 mg PO DAILY 02/26/18 06/26/21 Metoprolol Succinate [Toprol Xl] 50 mg PO BID 02/26/18 06/26/21 Venlafaxine HCl [Venlafaxine HCl 75 mg PO .IN AM 02/26/18 06/26/21 ER] Amlodipine Besylate [Norvasc] 5 mg PO DAILY 04/05/20 06/26/21 Aripiprazole [Abilify] 2 mg PO QPM 04/05/20 06/26/21 Buspirone HCl 10 mg PO TID 04/05/20 06/26/21 Gabapentin 300 mg PO 04/05/20 06/26/21 rOPINIRole [Requip] 0.5 mg PO QPM 04/05/20 06/26/21 Umeclidinium [place] [Incruse 62.5 mcg INH BID 11/07/20 06/26/21 Ellipta] Mupirocin 2% Oint [Bactroban 2% 1 applic TOP BID #22 gm 12/19/20 06/26/21 Oint] diazePAM [Diazepam] 2 mg PO UD #2 tablet 01/01/21 06/26/21 LORazepam [Ativan] 1 tab PO DAILY PM PRN 07/17/21 07/17/21 oxyCODONE [Roxicodone] 1 tab PO Q4H PRN 07/17/21 07/17/21 Naloxone HCl Nasal [Narcan Nasal] 07/26/21 Senna [Senokot] 8.6 mg PO TID PRN 07/26/21 07/26/21 Venlafaxine ER [Effexor ER] 150 mg PO QPM 07/26/21 07/26/21 polyethylene glycoL 3350 [Miralax] 17 gm PO DAILY PRN 07/26/21 07/26/21 - Allergies Allergies/Adverse Reactions: Allergies Allergy/AdvReac Type Severity Reaction Status Date / Time No Known Drug Allergies Allergy Verified 07/26/21 12:13 Review of Systems - Constitutional Constitutional: reports: Fatigue, Weight loss (26lbs after GI illness in May 2021--unintentional). denies: Fever - Eyes Eyes: denies: Irritation - Ears, Nose & Throat Ears, Nose & Throat: reports: Dentures. denies: Hearing aids, Mouth lesions - Cardiovascular Cardiovascular: reports: Edema, Exertional dyspnea, Decr. exercise tolerance. denies: Chest pain, Lightheadedness - Respiratory Respiratory: reports: Cough, Sputum production, Wheezing - Gastrointestinal Gastrointestinal: reports: Good appetite. denies: Abdominal pain, Constipation, Diarrhea, Nausea, Vomiting - Genitourinary Genitourinary: denies: Dysuria, Hematuria - Musculoskeletal Musculoskeletal: reports: Back pain (between shoulder blades), Assistive devices (walker or cane) - Integumentary Integumentary: reports: Other (Resolving wound to RLE--[place] [facility] - Neurological Neurological: reports: General weakness. denies: Headache, Dizziness - Psychiatric Psychiatric: reports: Depression (on effexor), Anxiety - Endocrine Endocrine: reports: Diabetes type 2 (no longer on metformin with last HgA1C 6.2% 02/2021) - Hematologic/Lymphatic Hematologic/Lymph: reports: Anemia - All Other Systems All Other Systems: reports: Reviewed and negative Physical Exam - Vital Signs Temperature: 36.6 C Pulse Rate: 83 O2 Saturation: 92 (on RA) Blood Pressure: 105/58 (left wrist) - Physical Exam General Appearance: positive: No acute distress, Alert, Other (Appears older than stated age) Eyes Bilateral: positive: Normal inspection ENT: positive: No signs of dehydration, Other (+upper and lower dentures) Neck: positive: Trachea midline Cardiovascular: positive: Regular rate & rhythm Respiratory: positive: No respiratory distress, Wheezes (throughout) Abdomen: positive: Non-tender, Soft, Nml bowel sounds. negative: Distended Skin: positive: Dryness (BLE with LLE > RLE), Wound (Right medial ankle with dressing c/d/i--see MAC notes for full details) Extremities: positive: Full ROM, Other (Tenderness to palpation over right scapula) Neurologic/Psychiatric: positive: Oriented x3, Mood/affect nml Palliative Care - POLST Patient has POLST: No Pain: Pain improved (using oxycodone 5mg 3-4 times per day with positive effects) Nausea: None Anorexia: Mild (1-3) Dyspnea: Moderate (4-6) Sleep: Sleeps well Constipation: Managed Performance Status: Patient is ambulatory with an assistive device such as her walker or cane. Unable to ambulate long distances and will utilize a motorized scooter at the grocery store. Has assistance with a [employer] caregiver 5 days/week. Continent of bowel and bladder. - Palliative Care Discussion: Patient expresses being frustrated that she was diagnosed in early summer 2020 with lung cancer and has thus far not initiated any treatment. Her caregiver, Diana has been a strong advocate for her. She appreciates that her cancer has metastasized to the bone however, is unclear regarding prognosis and this is something that she is weighing if she went wishes to have knowledge regarding or not moving forward. Presently, she is focused on obtaining her port and moving forward with immunotherapy to reduce pain. She expresses pain to her mid upper back between her shoulder blades and then more specifically over her right shoulder. She is appropriately utilizing oxycodone 5 mg typically 3-4 times per day. This is with positive effect and she is not being awoken overnight by pain. Does express concern about being "a ddicted" to opioid medication and lengthy discussion had regarding physical dependence versus addiction and utilizing oxycodone as a tool in her toolbox to manage her pain. Did introduce the role of long-acting opioid therapy as a potential tool in the future based on her response to immunotherapy with understanding verbalized. Moving forward palliative care will provide opioid medication through one provider in 1 pharmacy with both caregiver and patient verbalizing understanding. Impression and Recommendations - Palliative Care Impression: This is a 76-year-old female with multiple comorbidities diagnosed with left lingular adenocarcinoma in the setting of tobacco abuse unfortunately now with new bone metastases. She is pending immunotherapy. Pain is now controlled with utilization of oxycodone which is her most significant symptom burden at the present time. Palliative care will continue to build rapport, explore goals of care, provide pain and symptom management as well as anticipatory guidance. Recommendations/Counseling Done: 1. Pain of neoplastic origin due to bony mets most specifically to right scapula. In the setting of of chronic pain syndrome and history of alcohol abuse. Has responded well to utilization of oxycodone 5 mg every 4 hours as needed for pain. Typically taking oxycodone 30 to 40 mg/day with positive response. No need at the present time to introduce long-acting opioid therapy as the patient is utilizing oxycodone for increased activity. Lengthy di scussion had regarding physical dependence versus addiction with patient and caregiver regarding patient's underlying fears. Discussed moving forward that palliative care will provide opioid medication prescribed at as a [facility] per patient's request. Also introduced the role of Narcan to have available within the home and Rx sent to pharmacy. We will continue to monitor and titrate medication accordingly to optimize the patient's comfort and function. Set expectations regarding not being pain-free but again optimizing her comfort and maintaining function. Emphasized goal is daily, soft bowel movement and reviewed utilization of miralax and senna to titrate to achieve desired effect. 2. COPD. Longstanding history. Not on oxygen therapy. No recent history of COPD exacerbations. Continue inhalers as prescribed by PCP. Patient questioning regarding supplemental oxygen support. Today, pulse ox above 90% and not appropriate for supplemental oxygen. Discussion had regarding walking pulse ox needs to be below 88% to qualify for supplemental oxygen and again reviewed inability to smoke with supplemental oxygen in place. Will evaluate walking pulse ox at next evaluation. 3. Tobacco abuse. Longstanding history. Patient presently smoking 5 to 8 cigarettes/day. Counseled regarding smoking cessation. 4. Anxiety. Longstanding history. Presently on Effexor and BuSpar 10 mg 3 times daily. She has lorazepam 0.5 mg to take once daily at bedtime if needed with positive response. 5.Left lingular adenocarcinoma. Diagnosed 11/29/2020. Followed by oncology. 6.Advance care planning. Patient is enthusiastic to begin immunotherapy and have her port placement. She at the present time does not fully appreciate potential prognostics given she now is with metastatic disease. We will continue to follow and provide support and tease out goals of care with the patient and caregiver moving forward. Total time spent 70 minutes with greater than 50% of the spent in counseling coronation of care with the patient and caregiver; review of palliative philosophy; exploration regarding understanding of diagnosis of COPD and lung cancer; review of disease progression of COPD. Pain and symptom management as well as anticipatory guidance. Disclaimer: The chart note was formulated using voice recognition technology and unfortunately sound alike errors may occur.
== END 2021-07-25 14:11 | disposition home or self-care (01) ==
LOC: PC 14:10
PROVIDERS: ATTEND Nurse Practitioner Family
DX: Z51.5 Encounter for palliative care (principal); G89.3 Neoplasm related pain (acute) (chronic); C79.51 Secondary malignant neoplasm of bone; J44.9 Chronic obstructive pulmonary disease, unspecified; G89.4 Chronic pain syndrome; C34.12 Malignant neoplasm of upper lobe, left bronchus or lung; R53.1 Weakness; E11.9 Type 2 diabetes mellitus without complications; F41.9 Anxiety disorder, unspecified; F17.210 Nicotine dependence, cigarettes, uncomplicated; Z74.09 Other reduced mobility; Z79.899 Other long term (current) drug therapy
CPT/HCPCS: 99344

== ENCOUNTER 2021-08-08 15:35 | Outpatient (CLI) | payer MEDICARE, MEDICAID ==
--- NOTE | 2021-08-08 17:55 | CONSULTATION NOTE ---
Palliative Care Follow Up - Referral Referring Provider: Dr. Marley Sherman Time of Visit: 9208-2704 Referral setting: Home Referral Reason: Back pain/BROWN/COPD - Information Sources Records reviewed: Previous records reviewed History/Review of Systems obtained from: Patient, Caregiver (Manisha) Exam limitations: No limitations - History of Present Illness Update Brief HPI Update: This is a 76-year-old female who was seen in follow-up today within her home due to left lingular adenocarcinoma with bone mets, back pain due to bony mets, and COPD with dyspnea on exertion with her caregiver, Diana present. This is a 76-year-old female who was seen and evaluated today within her home due to left lingular adenocarcinoma with bone mets, back pain due to bony mets, and COPD with dyspnea on exertion with her caregiver, Diana present. Provider wore N95 mask. Patient has a longstanding history of tobacco use since approximately the age of 15. She was noted to have an enlarging left lung nodule and initially was consulted with oncology on 11/07/2020. She had a biopsy performed on 11/29/2020 that demonstrated well differentiated adenocarcinoma with lymphatic growth pattern. She was deemed a poor candidate for chemotherapy. She was referred to radiation oncology and thoracic surgery however, appeared to not have followed up. Next presented to oncology in May 2021 where she was referred again to radiation oncology was deemed not a surgical candidate. She has CT of the chest performed on 06/01/2021 that indicated progression of disease with findings concerning for underlying metastatic disease. MRI of the brain was negative for metastases. She had a PET scan that demonstrated evidence suspicious for matted static disease as well as compression fractures at T4, T5 and T8. Due to findings of bony mets primary radiation therapy was canceled and she began immunotherapy with Nivo as a single agent on 08/07/2021. She is scheduled to have her port placed on Friday. Leading up to her initial immunotherapy appointment on 08/07 she had an increase in her tobacco use due to anxiety. However, she reports feeling relief after she knows what to expect. She has had significant improvement with her pain between her bilateral scapula. Does not have any radiation of pain. She is presently taking 5 mg oxycodone in the morning, 5 mg oxycodone in the afternoon, and 10 mg oxycodone in the evening. She has not needed any additional breakthrough pain medication. She reports that she is more comfortable and her caregiver confirms this. She is a longstanding history of COPD in the setting of tobacco use. She is not oxygen dependent. She becomes significantly short of breath with activity. She reports on 08/07 her pulse ox was 88% yesterday. When she ambulates she has to hold onto the wall or her caregiver, Diana due to her lower extremity neuropathy and weakness. Would benefit from a walker. 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 Positive Covid19 booster and vaccine. Social History - Living Situation Living arrangement: At home Living Situation: Alone Support System: The patient lives alone. 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 She grew up in [place], [place]. She has 1 daughter who resides in [place]. Her caregiver Diana through [employer] comes 5 days/week with contact number [phone]. Diana has been acting as a strong advocate for the patient. The patient recently went to the nail salon to have her nails trimmed and it was a positive experience. Medications/Allergies - Medications Home Medications: Ambulatory Orders Medication Instructions Recorded Confirmed Albuterol Sulfate [Proair Hfa 2 puffs INH Q4H PRN 02/26/18 06/26/21 Inhaler] Atorvastatin Calcium 10 mg PO DAILY 02/26/18 06/26/21 Metoprolol Succinate [Toprol Xl] 50 mg PO BID 02/26/18 06/26/21 Venlafaxine HCl [Venlafaxine HCl 75 mg PO .IN AM 02/26/18 06/26/21 ER] Amlodipine Besylate [Norvasc] 5 mg PO DAILY 04/05/20 06/26/21 Aripiprazole [Abilify] 2 mg PO QPM 04/05/20 06/26/21 Buspirone HCl 10 mg PO TID 04/05/20 06/26/21 Gabapentin 300 mg PO MDD 04/05/20 06/26/21 .1200mgAM,900mgafternoon & PM rOPINIRole [Requip] 0.5 mg PO QPM 04/05/20 06/26/21 Umeclidinium [place] [Incruse 62.5 mcg INH BID 11/07/20 06/26/21 Ellipta] Mupirocin 2% Oint [Bactroban 2% 1 applic TOP BID #22 gm 12/19/20 06/26/21 Oint] diazePAM [Diazepam] 2 mg PO UD #2 tablet 01/01/21 06/26/21 LORazepam [Ativan] 1 tab PO DAILY PM PRN 07/17/21 07/17/21 oxyCODONE [Roxicodone] 1 - 2 tab PO Q4H PRN 07/17/21 07/17/21 Naloxone HCl Nasal [Narcan Nasal] 07/26/21 Senna [Senokot] 8.6 mg PO TID PRN 07/26/21 07/26/21 Venlafaxine ER [Effexor ER] 150 mg PO QPM 07/26/21 07/26/21 polyethylene glycoL 3350 [Miralax] 17 gm PO DAILY PRN 07/26/21 07/26/21 Lidocaine/Prilocain 2.5% Cream 5 applic TOP UD #1 gm 07/30/21 [Emla 2.5% Cream] Ondansetron Odt [Zofran Odt] 4 mg SL Q6H PRN #30 tab 07/30/21 - Allergies Allergies/Adverse Reactions: Allergies Allergy/AdvReac Type Severity Reaction Status Date / Time No Known Drug Allergies Allergy Verified 07/26/21 12:13 Review of Systems - Constitutional Constitutional: reports: Fatigue, Weight loss (26lbs after GI illness in May 2021--unintentional). denies: Fever, Poor appetite - Ears, Nose & Throat Ears, Nose & Throat: reports: Dentures. denies: Hearing aids - Cardiovascular Cardiovascular: reports: Edema, Exertional dyspnea, Decr. exercise tolerance. denies: Chest pain, Lightheadedness - Respiratory Respiratory: reports: Cough, Sputum production, Wheezing, SOB at rest (intermittent), SOB with exertion. denies: Hemoptysis - Gastrointestinal Gastrointestinal: reports: Good appetite (Has been consuming alot of fruit--oranges and melons which recently mildly elevated K+ level). denies: Abdominal pain, Constipation (reports bowel movement every other day and not s training. Has not purchased senna and miralax and will next month with funds.), Diarrhea, Nausea - Genitourinary Genitourinary: denies: Dysuria - Musculoskeletal Musculoskeletal: reports: Back pain (between shoulder blades--improved. Sleeping better at night and pain is not waking her up or when she rolls over onto affec sandro joints.), Muscle weakness, Assistive devices (cane or caregiver) - Integumentary Integumentary: reports: Other (Resolving wound to RLE--seeing [facility] wound care clinic) - Neurological Neurological: reports: General weakness. denies: Headache - Psychiatric Psychiatric: reports: Depression (on effexor), Anxiety - Endocrine Endocrine: reports: Diabetes type 2 (no longer on metformin with last HgA1C 6.2% 02/2021) - Hematologic/Lymphatic Hematologic/Lymph: reports: Anemia - All Other Systems All Other Systems: reports: Reviewed and negative Physical Exam - Vital Signs Temperature: 36.6 C Pulse Rate: 77 O2 Saturation: 90 (on RA at rest) Blood Pressure: 105/50 - Physical Exam General Appearance: positive: No acute distress, Alert, Other (Appears older than stated age) Eyes Bilateral: positive: Normal inspection ENT: positive: No signs of dehydration, Other (+upper and lower dentures) Neck: positive: Trachea midline Cardiovascular: positive: Regular rate & rhythm Respiratory: positive: No respiratory distress, Wheezes (throughout) Abdomen: positive: Non-tender, Soft, Nml bowel sounds. negative: Distended Skin: positive: Dryness (BLE with LLE > RLE), Wound (Right medial ankle with dressing c/d/i--see [facility] notes for full details) Extremities: positive: Full ROM, Other (Tenderness to palpation over right scapula) Neurologic/Psychiatric: positive: Oriented x3, Mood/affect nml, Weakness, Other (+ataxic gait) Comments/Other: Walking pulse ox 83-84% on RA with significant dyspnea reported. Palliative Care - POLST Patient has POLST: No Pain: Pain improved (with oxycodone 20mg total per day.) Nausea: None Anorexia: Mild (1-3) Dyspnea: Severe (7-10) Anxiety: Mild (1-3) (improved after first session of immunotherapy) Feelings of wellbeing/Perceived Quality of Life: Good Sleep: Sleep improved Constipation: No Performance Status: Patient is ambulatory utilizing a wall, her caregiver or cane. She is unable to ambulate long distances as she becomes weak and significantly dyspneic. Continent of bowel and bladder. Has assistance with [employer] caregiver 5 days/week. - Palliative Care Discussion: The patient initially had some increased anxiety and trepidation regarding init iating her immunotherapy. However, after completing her first treatment on 08/07/2021 she feels this anxiety has been eliminated has a fear of the unknown is no longer present. Patient's walking pulse ox today indicates significant hypoxia especially with activity. Her pulse ox dropped to 83 to 84% after walking the length of her hallway with significant dyspnea. She will benefit from addition of oxygen therapy to utilize with activity. Lengthy discussion was had with the patient and caregiver that the patient cannot smoke with her supplemental oxygen in place due to risk of an adverse event and she understands this. She plans on smoking outside of the her home. She will intermittently have vodka 3-4 shots daily for a week and then nothing for several months. Lengthy discussion was had today regarding reduction of alcohol consumption due to her opioid therapy to reduce risk of sedation and adverse effects with understanding verbalized and plans to cut back. Her pain has significantly improved with her current regimen and she is able to function with more ease. Impression and Recommendations - Palliative Care Impression: This is a 76-year-old female with multiple comorbidities diagnosed with left lingular adenocarcinoma in the setting of tobacco abuse unfortunately now with new bony metastases. She began immunotherapy on 08/07/2021. Her pain is well controlled with usage of oxycodone 20 mg/day. She requires and would benefit supplemental oxygen 2 L via nasal cannula during ambulation and activity. She will also benefit from a rolling walker with a seat. Palliative care will continue to build rapport, explore goals of care, provide pain and symptom management as well as anticipatory guidance. Recommendations/Counseling Done: 1. Hypoxia in the setting of COPD and tobacco abuse. Patient is walking pulse ox to 83 to 84% on room air. At rest 90%. Requires supplemental oxygen 2 L via nasal cannula to be utilized during ambulation and activity and as needed at rest. Will send request to [facility]. Lengthy discussion was had with patient r egarding avoiding smoking with oxygen use for risk of an adverse event such as patterson, for example and patient verbalized understanding and to smoke outside of the home. 2. COPD. Longstanding history. No recent COPD exacerbations. Reviewed importance of utilizing albuterol inhaler if increased wheezing or shortness of breath. Continue maintenance inhaler as prescribed by PCP. Now with requir ement of of supplemental oxygen. 3. Pain of neoplastic origin due to bony mets most specifically to the right scapula. In the setting of chronic pain syndrome and history of alcohol abuse. Presently taking oxycodone 20 mg/day with positive response. No need to transition to long-acting opioid therapy at the present time as patient is utilizing oxycodone surrounding when she has increased activity. Aware not to utilize opioid therapy with alcohol use for risk of increased sedation and adverse event. Has Narcan in the home. Continues to have routine bowel movements however, has not picked up MiraLAX or senna [id number] and plans to early next month to have on hand for prevention of constipation for potential future event. 4. Debility in the setting of peripheral neuropathy due to diabetes mellitus and muscle weakness. Would benefit from rolling walker with a seat for rest during ambulation and given patient's significant dyspnea on exertion with hypoxia. Rx provided to patient and caregiver to obtain from local DME such as [facility] and may also look at obtainment from [email or web address]. Fall precautions. 5. Left lingular adenocarcinoma. Diagnosed 11/29/2020. Began immunotherapy on 08/07/2021. Followed by oncology. Total time spent 45 minutes with greater than 50% of the spent in counseling and coordination of care with the patient and caregiver; walking pulse ox testing; supportive and empathetic listening and counseling revolving around alcohol reduction and smoking cessation; pain and symptom management as well as anticip atory guidance. Disclaimer: The chart note was formulated using voice recognition technology and unfortunately sound alike errors may occur.
== END 2021-08-08 15:36 | disposition home or self-care (01) ==
LOC: PC 15:35
PROVIDERS: ATTEND Nurse Practitioner Family
DX: Z51.5 Encounter for palliative care (principal); R06.09 Other forms of dyspnea; R09.02 Hypoxemia; J44.9 Chronic obstructive pulmonary disease, unspecified; G89.3 Neoplasm related pain (acute) (chronic); G89.4 Chronic pain syndrome; E11.42 Type 2 diabetes mellitus with diabetic polyneuropathy; M62.81 Muscle weakness (generalized); F10.10 Alcohol abuse, uncomplicated; Z79.899 Other long term (current) drug therapy; Z79.891 Long term (current) use of opiate analgesic; F17.200 Nicotine dependence, unspecified, uncomplicated; C34.12 Malignant neoplasm of upper lobe, left bronchus or lung; C79.51 Secondary malignant neoplasm of bone
CPT/HCPCS: 99349

== ENCOUNTER 2021-08-13 11:00 | Day surgery (SDC) | payer MEDICARE, MEDICAID ==
[~2021-08-13 11:00] MED LIST changes: +BUPIVACAINE 0.5% PF 10 ML VIAL ONE; -KETOROLAC 0.45% OPHTH DROPS ONE; +LIDOCAINE MPF 2%-EPI 1:200000 20 ML VIAL ONE; -PHENYLEPHRINE 2.5% OPHTH 2 ML DROPS ONE; -PROPARACAINE 0.5% OPHTH DROPS 15 ML ONE
[2021-08-13] MEDS ORDERED: CEFAZOLIN SODIUM IN 0.9 % NACL 2 GM/50 ML BAG IV ONE (11:25)
[2021-08-13] MEDS ORDERED: BUPIVACAINE 0.5% PF 30 ML VIAL SUBQ ONE (11:29)
[2021-08-13] MEDS ORDERED: PROPOFOL 500 MG/50 ML 500 MG/50 ML VIAL ONE (11:32)
--- NOTE | 2021-08-13 11:39 | ANESTHESIA ---
Pre-Anesthesia VS, & Labs - Diagnosis lung cancer - Procedure port placement Height: 5 ft 9 in - NPO >8 hours - Is Patient ?: No - Lab Results Lab results reviewed: Yes Home Medications and Allergies Albuterol Sulfate [Proair Hfa Inhaler] 2 puffs INH Q4H PRN 02/26/18 Atorvastatin Calcium 10 mg PO DAILY 02/26/18 Metoprolol Succinate [Toprol Xl] 50 mg PO BID 02/26/18 Venlafaxine HCl [Venlafaxine HCl ER] 75 mg PO .IN AM 02/26/18 Amlodipine Besylate [Norvasc] 5 mg PO DAILY 04/05/20 Aripiprazole [Abilify] 2 mg PO QPM 04/05/20 Buspirone HCl 10 mg PO TID 04/05/20 Gabapentin 300 mg PO MDD .1200mgAM,900mgafternoon & PM 04/05/20 rOPINIRole [Requip] 0.5 mg PO QPM 04/05/20 Umeclidinium [place] [Incruse Ellipta] 62.5 mcg INH BID 11/07/20 LORazepam [Ativan] 1 tab PO DAILY PM PRN 07/17/21 oxyCODONE [Roxicodone] 1 - 2 tab PO Q4H PRN 07/17/21 Naloxone HCl Nasal [Narcan Nasal] 07/26/21 Senna [Senokot] 8.6 mg PO TID PRN 07/26/21 Venlafaxine ER [Effexor ER] 150 mg PO QPM 07/26/21 polyethylene glycoL 3350 [Miralax] 17 gm PO DAILY PRN 07/26/21 Allergies/Adverse Reactions: Allergies Allergy/AdvReac Type Severity Reaction Status Date / Time No Known Drug Allergies Allergy Verified 07/26/21 12:13 Anes History & Medical History - Anesthetic History Anesthesia Complications: reports: No previous complications Family history of Anesthesia Complications: Denies Family history of Malignant Hyperthermia: Denies - Medical History Cardiovascular: reports: Hypertension, High cholesterol Pulmonary: reports: COPD, Other Gastrointestinal: reports: GI bleed, Other Urinary: reports: Renal insuffiency Neuro: reports: Peripheral neuropathy, Other (Restless Leg syndrome) Musculoskeletal: reports: Osteoarthritis, Gout Endocrine/Autoimmune: reports: Type 2 diabetes, HyPOthyroidism Skin: reports: Other Smoking Status: Current every day smoker - Surgical History Eyes Ears Nose Throat (EENT): reports: Cataracts Gynecologic: reports: Tubal ligation Exam General: Alert, Oriented x3, Cooperative Dental: Dentures full Upper, Dentures full Lower Mouth Openin Fingerbreadth Neck Mobility: Normal Mallampati classification: II Respiratory: Decreased breath sounds, Wheezing, Inspiration Cardiovascular: Regular rate Neurological: Normal speech Mental/Cognitive Status: Alert/Oriented X3, Normal for patient Cognitive Status: Within normal limits Plan Anesthesia Type: Total IV Consent for Procedure(s) Verified and Reviewed: Yes Code Status: Attempt Resuscitation ASA classification: 3-Severe systemic disease Is this case an emergency?: No
[2021-08-13] MEDS ORDERED: LACTATED RINGERS 1,000 ML IV ONE ×2 (11:48→12:41)
[2021-08-13] MEDS ORDERED: LIDOCAINE 2%-EPI 1:100000 20 ML MDV SUBQ ONE (12:20)
--- NOTE | 2021-08-13 12:40 | OPERATIVE REPORT ---
Operative Report - General Procedure Date: 08/13/21 Planned Procedure: Right subclavian Port-A-Cath placement Pre-Op Diagnosis: Metastatic lung cancer Procedure Performed: Right subclavian PowerPort placement Post Op Diagnosis: Metastatic lung cancer - Procedure Note Primary Surgeon: Catarino Anesthesia Provider: JAI Blum Anesthesia Technique: General LMA, Local Pathology: None IV Fluids (mL): 400 Estimated Blood Loss (mL): 5 Findings: Power port in good position in the superior vena cava Complications: None - Other Other Information/Narrative: After obtaining informed consent, the patient is brought to the operating room and placed in supine position on the operating table. Following successful induction of sedation with monitored anesthesia care and appropriate padding of all bony prominences, the left chest and neck were prepped and draped in the standard surgical fashion. A timeout was held per scope protocol. All elements of the surgical safety checklist were followed before, during, and after the procedure. Following infiltration with local anesthetic to create a field block, the right subclavian vein was accessed in the deltopectoral groove. The J-wire was gently placed into the vein. Fluoroscopy was used to confirm the position of the wire and in the subclavian vein. We anesthetized the existing healed scar in the area around it for placement of the port itself. An incision was created here and carried down through the skin and subcutaneous tissue. A pocket was created with blunt dissection. The port tubing was attached to the tunneling device and passed from the access site of the vein into the pocket. It was trimmed to an appropriate length and the port attached. The port was sewn into place in the pocket. The dilator and introducer were then passed over the J-wire that was in the subclavian vein. The J-wire and dilator were removed leaving only the introducer. The tubing was then passed through the introducer and the introducer cracked and removed per oracle apex developer's directions. The port was then checked for function and flushed and [place] easily. Additional local anesthetic was applied to the chest wall. The port pocket was closed with interrupted Vicryl sutures and Monocryl stitches were placed in both skin incision sites. All sponge, needle, and instrument counts were correct at the conclusion of the case. Chest x-ray in the postanesthesia care unit revealed the port in good position in the superior vena cava without evidence of pneumothorax.
--- NOTE | 2021-08-13 12:59 | ANESTHESIA POST OP EVALUATION ---
Anesthesia Post Eval - Post Anesthesia Eval Vitals: Last Vital Signs Temp 36 C L 08/13/21 12:41 Pulse 68 08/13/21 12:41 Resp 16 08/13/21 12:41 BP 112/56 L 08/13/21 12:41 Pulse Ox 100 08/13/21 12:41 CV Function Including HR & BP: Stable Pain Control: Satisfactory Nausea & Vomiting: Negative Mental Status: Baseline Respiratory Status: Airway Patent Hydration Status: Satisfactory Anesthesia Complications: None
--- NOTE | 2021-08-13 13:02 | XRAY Report ---
PROCEDURE: Chest for Line Placement INDICATIONS: Right port TECHNIQUE: One view of the chest was acquired. COMPARISON: December 19, 2020 FINDINGS: SUPPORT DEVICES: A right CT injectable beltran catheter projects of the SVC region. LUNGS/PLEURA: Mildly coarsened interstitial markings. No focal consolidation, pleural effusion or spa ce-occupying pneumothorax. MEDIASTINUM: The cardiomediastinal silhouette is within normal limits. BONES/SOFT TISSUES: No acute abnormality. IMPRESSION: 1.No acute cardiopulmonary abnormality. Reviewed by: Gelacio Peralta MD on 08/13/2021 1:00 PM [facility] Approved by: Gelacio Peralta MD on 08/13/2021 1:00 PM [facility] Station ID: [id number]
--- NOTE | 2021-08-13 13:24 | XRAY Report ---
PROCEDURE: OR Port-A-Cath INDICATIONS: PORT PLACEMENT TECHNIQUE: 1 Fluoroscopic view(s) of the chest. COMPARISON: None. FINDINGS: Central venous line wire projects over the cavoatrial junction. IMPRESSION: Intraoperative guidance provided. Reviewed by: Gaudencio Soriano MD on 08/13/2021 1:23 PM [facility] Approved by: Gaudencio Soriano MD on 08/13/2021 1:23 PM [facility] Station ID: [id number]
[2021-08-13 13:32] VITALS: BP 120/89
== END 2021-08-13 11:01 | disposition home or self-care (01) ==
LOC: SDS 11:00
PROVIDERS: ATTEND Surgery
DX: C34.92 Malignant neoplasm of unspecified part of left bronchus or lung (principal); J44.9 Chronic obstructive pulmonary disease, unspecified
CPT/HCPCS: 36561; C1788; J0690; J7120

== ENCOUNTER 2021-08-24 15:05 | Outpatient (CLI) | payer MEDICARE, MEDICAID ==
--- NOTE | 2021-08-24 19:25 | CONSULTATION NOTE ---
Palliative Care Follow Up - Referral Referring Provider: Dr. Marley Sherman Time of Visit: [id number] Referral setting: Home Referral Reason: Pain of neoplasm/Anxiety/COPD - Information Sources Records reviewed: Previous records reviewed History/Review of Systems obtained from: Patient, Caregiver (Diana) - History of Present Illness Update Brief HPI Update: This is a 76-year-old female who was seen in follow-up today within her home due to left lingular adenocarcinoma with bone mets, pain of neoplastic origin, anxiety, and COPD with dyspnea on exertion with her caregiver, Diana present. Provider wore N95 mask. Patient has a longstanding history of tobacco use since approximately the age of 15. She was noted to have an enlarging left lung nodule and initially was consulted with oncology on 11/07/2020. She had a biopsy performed on that demonstrated well differentiated adenocarcinoma with lymphatic growth pattern. She was deemed a poor candidate for chemotherapy. She was referred to radiation oncology and thoracic surgery however, appeared not to have followed up. Next presented to oncology in May 2021 where she was referred again to radiation oncology was deemed not a surgical candidate. She had a CT of the chest performed on 06/01/2021 that indicated progression of disease with findings concerning for underlying metastatic disease. MRI of the brain was negative for metastases. She had a PET scan that demonstrated evidence suspicious for metastatic disease as well as compression fractures at T4, T5, and T8. Due to findings of bony mets primary radiation therapy was canceled and she began immunotherapy with Nivo as a single agent on 08/07/2021. She now has a port to her right chest wall. She has thus far tolerated her infusions well with minimal symptom burden's not recognized. This past week prior to her infusion she had increased shortness of breath, panic, and felt that she was not getting oxygen through her nasal cannula. This could only be described as a panic attack. The patient's caregiver is only present for half a day on Tuesdays and this is the only time that she is able to present to the [facility] given her oncologist provider. This leads to rushing and causes the patient to have increased anxiety. When review of medications today it appears that the patient is not taking her BuSpar as prescribed as 10 mg 3 times a day. She is only taking BuSpar 10 mg nightly. She does have lorazepam and oncologist wrote for lorazepam 0.5 mg twice daily and a new Rx was sent to [facility] recognizing that palliative care is to continue to assume administration regarding this. Due to increased panic and feeling like she was not getting oxygen she did have her caregiver increase her supplemental oxygen to 5 L via nasal cannula. It did provide some relief. She continues to smoke and has been smoking outside on her porch. There have been a few occasions where she has left her supplemental oxygen in place when smoking before catching herself. Her pain continues to be well controlled utilizing oxycodone 5 mg tablets as needed. She has not been recording her usage however, has taken 20mg of oxycodone today. She has also picked up her bowel regimen medication of senna and MiraLAX but has not utilized. She is typically having a bowel movement every 2 to 3 days that is not firm. Appetite has remained stable. Caregiver is requesting that prescription for walker be sent to [facility] as they will be able to provide the patient with a walker with the previous prescription that was provided. 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 Positive Covid19 booster and vaccine. Social History - Living Situation Living arrangement: At home Living Situation: Alone Support System: The patient lives alone. 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 She grew up in [place], [place]. She has 1 daughter who resides in [place]. Her caregiver Diana through [employer] comes 5 days/week with contact number [phone]. Diana has been acting as a strong advocate for the patient. Medications/Allergies - Medications Home Medications: Ambulatory Orders Medication Instructions Recorded Confirmed Albuterol Sulfate [Proair Hfa 2 puffs INH Q4H PRN 02/26/18 06/26/21 Inhaler] Atorvastatin Calcium 10 mg PO DAILY 02/26/18 06/26/21 Metoprolol Succinate [Toprol Xl] 50 mg PO BID 02/26/18 06/26/21 Venlafaxine HCl [Venlafaxine HCl 75 mg PO .IN AM 02/26/18 06/26/21 ER] Amlodipine Besylate [Norvasc] 5 mg PO DAILY 04/05/20 06/26/21 Aripiprazole [Abilify] 2 mg PO QPM 04/05/20 06/26/21 Buspirone HCl 10 mg PO BID 04/05/20 06/26/21 Gabapentin 300 mg PO MDD 04/05/20 06/26/21 .1200mgAM,900mgafternoon & PM rOPINIRole [Requip] 0.5 mg PO QPM 04/05/20 06/26/21 Umeclidinium Desmet [Incruse 62.5 mcg INH BID 11/07/20 06/26/21 Ellipta] Mupirocin 2% Oint [Bactroban 2% 1 applic TOP BID #22 gm 12/19/20 06/26/21 Oint] LORazepam [Ativan] 1 tab PO BID PRN 07/17/21 07/17/21 oxyCODONE [Roxicodone] 1 - 2 tab PO Q4H PRN 07/17/21 07/17/21 Naloxone HCl Nasal [Narcan Nasal] 07/26/21 Senna [Senokot] 8.6 mg PO TID PRN 07/26/21 07/26/21 Venlafaxine ER [Effexor ER] 150 mg PO QPM 07/26/21 07/26/21 polyethylene glycoL 3350 [Miralax] 17 gm PO DAILY PRN 07/26/21 07/26/21 Lidocaine/Prilocain 2.5% Cream 5 applic TOP UD #1 gm 07/30/21 [Emla 2.5% Cream] Ondansetron Odt [Zofran Odt] 4 mg SL Q6H PRN #30 tab 07/30/21 Lidocaine/Prilocain 2.5% Cream 5 applic TOP DAILY #1 tu 08/13/21 [Emla 2.5% Cream] Senna [Senokot] 8.6 mg PO Q48H 08/24/21 08/24/21 - Allergies Allergies/Adverse Reactions: Allergies Allergy/AdvReac Type Severity Reaction Status Date / Time No Known Drug Allergies Allergy Verified 07/26/21 12:13 Review of Systems - Constitutional Constitutional: reports: Fatigue, Weight loss (26lbs after GI illness in May 2021--unintentional). denies: Fever, Poor appetite - Ears, Nose & Throat Ears, Nose & Throat: reports: Dentures. denies: Hearing aids - Cardiovascular Cardiovascular: reports: Edema, Exertional dyspnea (improved with supplemental oxygen), Decr. exercise tolerance. denies: Chest pain, Lightheadedness - Respiratory Respiratory: reports: Cough, Wheezing, SOB with exertion (see HPI). denies: Hemoptysis - Gastrointestinal Gastrointestinal: reports: Good appetite. denies: Abdominal pain, Constipation (see HPI), Diarrhea, Nausea, Vomiting - Genitourinary Genitourinary: denies: Dysuria - Musculoskeletal Musculoskeletal: reports: Back pain (between shoulder blades--improved.), Muscle weakness, Assistive devices (cane or caregiver--needs walker) - Integumentary Integumentary: reports: Other (Resolving wound to RLE--seeing [facility] wound care clinic) - Neurological Neurological: reports: General weakness. denies: Dizziness - Psychiatric Psychiatric: reports: Depression (on effexor), Anxiety (see HPI, recent panic attack) - Endocrine Endocrine: reports: Diabetes type 2 (no longer on metformin with last HgA1C 6.2% 02/2021) - Hematologic/Lymphatic Hematologic/Lymph: reports: Anemia - All Other Systems All Other Systems: reports: Reviewed and negative (caregiver supplements) Physical Exam - Vital Signs Temperature: 36.3 C Pulse Rate: 88 O2 Saturation: 94 (on 2L via N) Blood Pressure: 102/62 - Physical Exam General Appearance: positive: No acute distress, Alert, Other (Appears older than stated age) Eyes Bilateral: positive: Normal inspection ENT: positive: No signs of dehydration, Other (+endentuolous with dentures not in place) Neck: positive: Trachea midline Cardiovascular: positive: Regular rate & rhythm Respiratory: positive: No respiratory distress, Wheezes (throughout), Other (Originally supplemental oxygen on 5L via NC and turned down to 2L via NC and patient calmed seeing pulse ox at 94% with oxygen) Abdomen: positive: Non-tender, Soft, Nml bowel sounds Skin: positive: Wound (Right medial ankle with dressing c/d/i--see MAC notes for full details) Extremities: positive: Pedal edema (Trace) Neurologic/Psychiatric: positive: Oriented x3, Mood/affect nml, Weakness Palliative Care - POLST Patient has POLST: No Pain: Pain improved (with use of oxycodone 5mg every 4 hours as needed for pain) Dyspnea: Severe (7-10) (improved with supplemental oxygen) Anxiety: Moderate (4-6) - Palliative Care Discussion: Patient has had increased anxiety in regards to her immunotherapy infusions. This will increase to panic attacks. This week, she felt like she was not getting supplemental oxygen through her nasal cannula and would benefit from having a pulse oximeter available to her for reassurance. Reviewed deep breathing exercise was with her and her caregiver. Discussed utilizing lorazepam 0.5 mg 30 minutes before leaving her apartment for the MAC to then take effect and calm her underlying anxiety. Also discussed increasing her BuSpar from 10 mg daily to 10 mg twice daily moving forward with the eventual goal for potentially titrating up to 3 times daily dosing as was previously prescribed. Discussed making sure she has lorazepam on hand in case she needed to utilize this at the [facility]. She has had benefit from supplemental oxygen with a reduction in hypoxia with activity. Given she at times will forget that her supplemental oxygen is in place with tobacco use reiterated today of the risk of an adverse event such as patterson and verbalized understanding and will make a conscious effort to ensure that supplemental oxygen is off before she vacate her home to smoke on her porch. Impression and Recommendations - Palliative Care Impression: This is a 76-year-old female with multiple comorbidities diagnosed with left lingular adenocarcinoma in the setting of tobacco abuse unfortunately now with bony metastases. She began on immunotherapy on 08/07/2021. Her pain has been well controlled with usage of oxycodone as needed and patient aware to record her use moving forward. She has benefited from supplemental oxygen to utilize during ambulation and activity. She would also benefit from utilization of a rolling walker with a seat and request through [employer] per caregiver request. She would benefit from dose increase of her BuSpar to 10 mg twice daily due to heightened anxiety and panic attacks surrounding her infusions. Palliative care will continue to build rapport, explore goals of care, provide pain and symptom management as well as anticipatory guidance. Recommendations/Counseling Done: 1. Hypoxia in the setting of COPD and tobacco abuse. Patient with walking pulse ox 83 to 84% on room air on last evaluation and requested supplemental oxygen for in the home and out of the home to be utilized at 2 L via nasal cannula. Reviewed with patient and caregiver not to increase supplemental oxygen heavily due to adverse effects due to underlying COPD and underlying pathophysiology with understanding verbalized. Patient would benefit from obtainment of home pulse oximeter for reassurance at times when her anxiety increases to note that her pulse ox is above 90%. Reviewed deep breathing exercises to calm underlying panic and increase air exchange. Continue maintenance inhaler letter as prescribed by PCP as well as albuterol inhaler. No history of recent COPD exacerbations. Reviewed again with the patient avoiding smoking with oxygen use for risk of adverse event with patient understanding verbalized. 2. Constipation in the setting of opioid use and sedentary lifestyle. Goal is to have a bowel movement every other day that is soft. Initiate senna 8.6 mg take every other day. 3. Pain of neoplastic origin. This is in the setting of chronic pain syndrome and history of alcohol abuse. Patient is taking oxycodone 5 mg every 4 hours as needed for pain. Discussed the need to record oxycodone administration in order to evaluate need for long-acting opioid therapy or setting a schedule of short acting oxycodone at stat intervals during activity with understanding verbalized. She is aware not to utilize opioid therapy with alcohol use for risk of increased sedation and adverse event. Has Narcan in the home. 4. Anxiety. Recent panic attack during infusion. Advised to utilize lorazepam 0.5 mg to take 30 minutes before leaving her home before scheduled infusion of immunotherapy. Increase BuSpar to 10 mg twice daily. Continue Effexor as prescribed. Continue to monitor and evaluate need to further increase BuSpar to 3 times daily dosing. Does have lorazepam available to utilize 0.5 mg twice daily as needed for anxiety. 5. Left lingular adenocarcinoma. Diagnosed 11/29/2020. Began immunotherapy on 08/07/2021. Followed by oncology. Total time spent 55 minutes with greater than 50% of the spent in counseling and coordination of care with the patient and caregiver, Diana; review of anxiety reduction strategies strategies; review of pain and symptom management; review of anxiety management; review of avoidance of smoking with supplemental oxygen use; as well as anticipatory guidance. Disclaimer: The chart note was formulated using voice recognition technology and unfortunately sound alike errors may occur.
== END 2021-08-24 15:06 | disposition home or self-care (01) ==
LOC: PC 15:05
PROVIDERS: ATTEND Nurse Practitioner Family
DX: Z51.5 Encounter for palliative care (principal); G89.3 Neoplasm related pain (acute) (chronic); F41.9 Anxiety disorder, unspecified; J44.9 Chronic obstructive pulmonary disease, unspecified; R09.02 Hypoxemia; C79.51 Secondary malignant neoplasm of bone; C34.12 Malignant neoplasm of upper lobe, left bronchus or lung; Z79.899 Other long term (current) drug therapy; Z99.81 Dependence on supplemental oxygen; F17.200 Nicotine dependence, unspecified, uncomplicated; K59.03 Drug induced constipation; T40.2X5A Adverse effect of other opioids, initial encounter
CPT/HCPCS: 99349

== ENCOUNTER 2021-09-21 15:07 | Outpatient (CLI) | payer MEDICARE, MEDICAID ==
--- NOTE | 2021-09-21 18:14 | CONSULTATION NOTE ---
Palliative Care Follow Up - Referral Referring Provider: Dr. Marley Sherman Time of Visit: 9360-7822 Referral setting: Home Referral Reason: COPD/Anxiety/Alcoholism - Information Sources Records reviewed: Previous records reviewed History/Review of Systems obtained from: Patient, Caregiver (Manisha) Exam limitations: No limitations - History of Present Illness Update Brief HPI Update: This is a 76-year-old female who was seen in follow-up today within her home due to left lingular adenocarcinoma with bone mets, anxiety, COPD, and history of alcoholism with her caregiver, Diana present. Provider wore N95 mask. Recently, the patient has had a significant increase in her utilization of tobacco use with her cigarettes as well as drinking alcohol. Her preference is drinking vodka and in a few days can typically drink up to 1.75 L of vodka. She will dilute the Vodka She reports that she is having increased anxiety and worry and this is the reason for that uptick in her smoking and resumption of alcoholism. She did express her increased drinking to her oncologist as well as to the palliative care nurse as she was fearful about the alcohol may interfere with her immunotherapy. She has support from her caregiver, Diana and the goal is to slowly cut back on the alcohol intake. Patient also reports apprise that she has worsened renal function and not she has some history of underlying chronic kidney disease. She wishes to know what she can do better to prevent this from progressing. She has been fearful about not getting enough oxygen through her nasal cannula with her portable oxygen. The delivery gentleman from [facility] has been to the home and was able to make all that portable oxygen tanks free-flowing as the patient was not able to tolerate the on demand Ally comp. She also has a pulse oximeter in the home to monitor her pulse ox. She has been trying to leave her oxygen off and then see what her pulse ox is to determine if she "truly needs the oxygen." Her independent studies have indicated that she does indeed need the supplemental oxygen to keep her oxygen levels above 90%. Her pain is well controlled. She is only using her oxycodone 2-3 times per day. Her anxiety is increasing as she perceives that she is finally coming to director outcomes that she has cancer. She has been using BuSpar 10 mg tablets taking 2 tablets at least 1-2 times per day. She was not taking BuSpar as prescribed 10 mg twice a day. She is also on the maximum dose of Effexor extended release 225 mg. 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 Positive Covid19 booster and vaccine. Social History - Living Situation Living arrangement: At home Living Situation: Alone Support System: The patient lives alone. 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 She grew up in [place], [place]. She has 1 daughter who resides in [place]. Her caregiver Diana through [employer] comes 5 days/week with contact number [phone]. [employer] has been acting as a strong advocate for the patient. Diana has become more like a daughter to the patient. On her off time periodically she has been coming to the home to provide support to the patient due to increased anxiety. Medications/Allergies - Medications Home Medications: Ambulatory Orders Medication Instructions Recorded Confirmed Albuterol Sulfate [Proair Hfa 2 puffs INH Q4H PRN 02/26/18 06/26/21 Inhaler] Atorvastatin Calcium 10 mg PO DAILY 02/26/18 06/26/21 Metoprolol Succinate [Toprol Xl] 50 mg PO BID 02/26/18 06/26/21 Venlafaxine HCl [Venlafaxine HCl 75 mg PO .IN AM 02/26/18 06/26/21 ER] Amlodipine Besylate [Norvasc] 5 mg PO DAILY 04/05/20 06/26/21 Aripiprazole [Abilify] 2 mg PO QPM 04/05/20 06/26/21 Buspirone HCl 10 mg PO TID 04/05/20 06/26/21 Gabapentin 300 mg PO MDD 04/05/20 06/26/21 .1200mgAM,900mgafternoon & PM rOPINIRole [Requip] 0.5 mg PO QPM 04/05/20 06/26/21 Umeclidinium [place] [Incruse 62.5 mcg INH BID 11/07/20 06/26/21 Ellipta] Mupirocin 2% Oint [Bactroban 2% 1 applic TOP BID #22 gm 12/19/20 06/26/21 Oint] LORazepam [Ativan] 1 tab PO BID PRN 07/17/21 07/17/21 oxyCODONE [Roxicodone] 1 - 2 tab PO Q4H PRN 07/17/21 07/17/21 Naloxone HCl Nasal [Narcan Nasal] 07/26/21 Senna [Senokot] 8.6 mg PO TID PRN 07/26/21 07/26/21 Venlafaxine ER [Effexor ER] 150 mg PO QPM 07/26/21 07/26/21 polyethylene glycoL 3350 [Miralax] 17 gm PO DAILY PRN 07/26/21 07/26/21 Lidocaine/Prilocain 2.5% Cream 5 applic TOP UD #1 gm 07/30/21 [Emla 2.5% Cream] Ondansetron Odt [Zofran Odt] 4 mg SL Q6H PRN #30 tab 07/30/21 Lidocaine/Prilocain 2.5% Cream 5 applic TOP DAILY #1 tu 08/13/21 [Emla 2.5% Cream] Senna [Senokot] 8.6 mg PO Q48H 08/24/21 08/24/21 - Allergies Allergies/Adverse Reactions: Allergies Allergy/AdvReac Type Severity Reaction Status Date / Time No Known Drug Allergies Allergy Verified 07/26/21 12:13 Review of Systems - Constitutional Constitutional: reports: Fatigue, Weight loss (26lbs after GI illness in May 2021--unintentional). denies: Fever, Poor appetite - Eyes Eyes: denies: Irritation - Ears, Nose & Throat Ears, Nose & Throat: reports: Dentures. denies: Hearing aids - Cardiovascular Cardiovascular: reports: Edema, Exertional dyspnea (improved with supplemental oxygen), Decr. exercise tolerance. denies: Chest pain - Respiratory Respiratory: reports: Cough, Wheezing, SOB with exertion (see HPI) - Gastrointestinal Gastrointestinal: reports: Good appetite. denies: Abdominal pain, Constipation (BM daily to every other day), Diarrhea, Nausea, Vomiting - Genitourinary Genitourinary: denies: Dysuria - Musculoskeletal Musculoskeletal: reports: Back pain (between shoulder blades--improved.), Muscle weakness, Assistive devices (cane or caregiver--needs walker and has not heard back from [facility] about Rx with demographics that were sent on 08/27/21 for rollator) - Integumentary Integumentary: reports: Dryness, Other (RLE wound resolved, wearing tubigrip hose to BLE) - Neurological Neurological: reports: General weakness. denies: Dizziness - Psychiatric Psychiatric: reports: Depression (on effexor), Anxiety (see HPI) - Endocrine Endocrine: reports: Diabetes type 2 (no longer on metformin with last HgA1C 6.2% 02/2021) - Hematologic/Lymphatic Hematologic/Lymph: reports: Anemia - All Other Systems All Other Systems: reports: Reviewed and negative (caregiver supplements ROS) Physical Exam - Vital Signs Temperature: 36.8 C Pulse Rate: 79 O2 Saturation: 92 (on 2L via NC) Blood Pressure: 116/50 - Physical Exam General Appearance: positive: No acute distress, Alert, Other (Appears older th an stated age) Eyes Bilateral: positive: Normal inspection ENT: positive: No signs of dehydration, Other (+endentuolous with dentures not in place) Neck: positive: Trachea midline Cardiovascular: positive: Regular rate & rhythm Respiratory: positive: No respiratory distress, Wheezes (throughout), Other (Pauses for breath every few words, supplemental oxygen in place) Abdomen: positive: Non-tender, Soft, Nml bowel sounds Skin: positive: Dryness (BLE) Extremities: positive: Pedal edema (Trace) Neurologic/Psychiatric: positive: Oriented x3, Mood/affect nml, Weakness Palliative Care - POLST Patient has POLST: No Pain: Pain improved (between shoulder blades, using oxycodone 5mg 2-3x/day) Depression: Moderate (4-6) Anxiety: Moderate (4-6) Feelings of wellbeing/Perceived Quality of Life: Fair Sleep: Variable sleep pattern Constipation: Opoid induced, Managed - Palliative Care Discussion: The patient has had increased anxiety surrounding her realization that she does indeed have cancer. She reports that she did not have any any increased anxiety when the initial diagnosis was made in November 2020 but in recent weeks she has felt this increased worry and anxiety regarding her underlying diagnosis. She has been coping with utilization of increased cigarette use,'s leaning for support and her caregiver significant increase in alcohol consumption to decrease her anxiety. She does have a desire to cut back on both her alcohol use as well as her tobacco use and her caregiver is extremely supportive of this. Lengthy discussion was had today regarding each week reducing the quantity of vodka that she is consuming and diluting this with water to continually cut back. Patient is amenable to trying this. She is also fearful leaving her apartment with out her supplemental oxygen for fear that she will suffocate. Encouraged utilization of pulse oximeter to check and provide reassurance that she is oxygenated and to move forward. Also discussed when these building anxiety attacks come on to ground herself to then recognize the source of the anxiety to identify and work on reducing. Discussed increasing BuSpar to 10 mg 3 times daily. She is also on Effexor and Abilify. Her Effexor is at the max daily dose of 225 mg daily. May need to consider transitioning to a another antianxiety medication with cross tapering based on the patient's past history of use as well as obtaining CBT therapy if possible with the patient scheduling or even if the patient would be amenable to the palliative care speeder frame tender for providing some support. Results - Lab Results Lab results reviewed: Yes Lab and Imaging Results: 09/18/2021 Sodium 135, potassium 4.5, BUN 25, creatinine 1.6, estimated GFR 32, glucose 83, alk phos 136, AST 23, ALT 18, WBC 6.9, hemoglobin 11.2, hematocrit 35.9, platelet 337 Impression and Recommendations - Palliative Care Impression: This is a 76-year-old female with multiple comorbidities diagnosed with left lingular adenocarcinoma in the setting of tobacco abuse unfortunately with bony metastases who began immunotherapy on 08/07/2021. Her tobacco abuse and alcohol use has significantly increased and week since weeks. Counseled on reduction of alcohol use slowly on a weekly basis. She has increased anxiety revolving around her diagnosis and potential life expectancy. Increase BuSpar to 10 mg 3 times daily. Palliative care will continue to build rapport, explore goals of care, provide pain and symptom management as well as anticipatory guidance. Recommendations/Counseling Done: 1.Alcoholism. Increased use in the setting of anxiety. Cautioned patient in regards to alcohol use with opioid and benzodiazepine use due to potential for increased sedation with understanding verbalized. Discussed gradual reduction on a weekly basis of alcohol use with vodka and to steadily increase her dilution of the vodka with water with the goal to gradually discontinue and avoid risk of withdrawal symptoms. Patient is amenable to slowly cut back. 2. Anxiety. Longstanding history of anxiety and depression now with exacerbation of anxiety symptoms due to her underlying diagnosis of cancer. Discussed stages of grief and how someone can we have in and out various stages and discussed tools to ground herself when she has a sensation of panic beginning. She has as needed lorazepam to take as prescribed within the home. Increase BuSpar to 10 mg 3 times daily. Continue Effexor as prescribed and make consider transitioning to a different antianxiety medication in the future b ased on the patient's response. We will also introduced the role of the palliative care speeder frame tender at next evaluation to see if the patient will be open for any additional talk therapy. 3. Tobacco abuse. Longstanding history. Recent increase with anxiety. Lengthy discussion was had again with the patient and caregiver to avoid smoking with oxygen use or risk of an adverse event such as patterson with the patient understanding verbalized. Also discussed increased utilization of tobacco abuse can increase the patient's shortness of breath in the setting of her COPD. 4. COPD. Requires supplemental oxygen 2 L via nasal cannula during ambulation and at rest. Goal to keep blood pulse ox above 90%. 5. Chronic kidney disease. In review of the patient's BUN, creatinine, and estimated GFR in 2018 began to have a subtle decrease in her renal function. Now with recent worsened function possibly related to increased alcohol intake versus possible immune mediated renal side effects from immunotherapy. Discussed with patient given her history of hypertension and prior history of diabetes mellitus this can be contributing factors to chronic kidney disease. Will provide handout regarding chronic kidney disease at next evaluation. Again, discussed cutting back on alcohol intake. Avoid nephrotoxic's medications when possible. 6. Debility in the setting of peripheral neuropathy due to back Beatties mellitus and muscle weakness. Prescription for rolling walker with a seat was sent to [facility] for obtainment of DM[facility] however, patient and caregiver have not been contacted. Message left for [facility] in regards to status of this request. Also made recommendation for patient's caregiver to look into the [employer] library from [employer] for obtainment. Fall precautions. 7. Left lingular adenocarcinoma. Diagnosed . Began immunotherapy on 08/07/2021. Followed by oncology. CPT 50 minutes with greater than 50% of the spent in counseling and coronation care with the patient and caregiver; examination of the patient; review of pathophysiology of CKD and reduction of of alcohol use and how alcohol abuse can contribute to renal function and depressive symptoms. Supportive listening. And anticipatory guidance. Disclaimer: The chart note was formulated using voice recognition technology and unfortunately sound alike errors may occur.
== END 2021-09-21 15:08 | disposition home or self-care (01) ==
LOC: PC 15:07
PROVIDERS: ATTEND Nurse Practitioner Family
DX: Z51.5 Encounter for palliative care (principal); J44.9 Chronic obstructive pulmonary disease, unspecified; I12.9 Hypertensive chronic kidney disease with stage 1 through stage 4 chronic kidney disease, or unspecified chronic kidney disease; N18.9 Chronic kidney disease, unspecified; F10.20 Alcohol dependence, uncomplicated; F41.9 Anxiety disorder, unspecified; F17.210 Nicotine dependence, cigarettes, uncomplicated; G89.4 Chronic pain syndrome; G62.9 Polyneuropathy, unspecified; M62.81 Muscle weakness (generalized); C34.12 Malignant neoplasm of upper lobe, left bronchus or lung; C79.51 Secondary malignant neoplasm of bone; Z79.899 Other long term (current) drug therapy; Z99.81 Dependence on supplemental oxygen; Z86.39 Personal history of other endocrine, nutritional and metabolic disease
CPT/HCPCS: 99349

== ENCOUNTER 2021-10-10 13:30 | Outpatient (CLI) | payer MEDICARE, MEDICAID ==
--- NOTE | 2021-10-10 16:20 | CONSULTATION NOTE ---
Palliative Care Follow Up - Referral Referring Provider: Dr. Marley Sherman Time of Visit: [id number] Referral setting: Home Referral Reason: Pain of neoplasm/Constipation/Debility - Information Sources Records reviewed: Previous records reviewed History/Review of Systems obtained from: Patient, Caregiver (Diana) - History of Present Illness Update Brief HPI Update: This is a 76-year-old female who was seen and evaluated today within her apartment due to left lingular adenocarcinoma with bony mets, COPD, history of alcoholism and anxiety with her caregiver, Diana present. Provider wore N95 mask. Patient reports that she has been more active since she received her rolling walker. She and her caregiver have been going out for walks and even out to dinner. However, she is having some increased pain specifically to her left shoulder blade and in the back and base of her neck that will radiate to her left shoulder. She is reporting pain is waking her up at night. She will have some radiation with certain positions but otherwise it is not constant. She is taking oxycodone 10 to 15 mg 3-4 times per day without full relief. Reporting that her pain will go up to about a 7 8 out of 10. Since last evaluation she has not cut back on her drinking as discussed with her vodka. She has not diluted the vodka further based on our discussion. Today, she is reporting that she is seeing floaters of her 2 to 3 days after her infusion with immunotherapy and then will thin out. She reports having a normal eye exam approximately 3 to 4 months ago prior to starting treatment. She is also reporting concerns with dry flaky skin to her lower legs. Both she and her caregiver report that they are no longer placing Aquaphor on her lower extremities on a consistent basis which may be influencing this. Appetite remains stable. No increased nausea or vomiting. She reports she is having a bowel movement typically every other day and is taking prune juice and/or senna 1 tablet every other day. 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 Positive Covid19 booster and vaccine. Social History - Living Situation Living arrangement: At home Living Situation: Alone Support System: The patient lives alone. 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 She grew up in [place], [place]. She has 1 daughter who resides in [place]. Her caregiver Diana through [employer] comes 5 days/week with contact number [phone]. Diana has been acting as a strong advocate for the patient. Medications/Allergies - Medications Home Medications: Ambulatory Orders Medication Instructions Recorded Confirmed Albuterol Sulfate [Proair Hfa 2 puffs INH Q4H PRN 02/26/18 06/26/21 Inhaler] Atorvastatin Calcium 10 mg PO DAILY 02/26/18 06/26/21 Metoprolol Succinate [Toprol Xl] 50 mg PO BID 02/26/18 06/26/21 Venlafaxine HCl [Venlafaxine HCl 75 mg PO .IN AM 02/26/18 06/26/21 ER] Amlodipine Besylate [Norvasc] 5 mg PO DAILY 04/05/20 06/26/21 Aripiprazole [Abilify] 2 mg PO QPM 04/05/20 06/26/21 Buspirone HCl 10 mg PO TID 04/05/20 06/26/21 Gabapentin 300 mg PO MDD 04/05/20 06/26/21 .1200mgAM,900mgafternoon & PM rOPINIRole [Requip] 0.5 mg PO QPM 04/05/20 06/26/21 Umeclidinium [place] [Incruse 62.5 mcg INH BID 11/07/20 06/26/21 Ellipta] Mupirocin 2% Oint [Bactroban 2% 1 applic TOP BID #22 gm 12/19/20 06/26/21 Oint] LORazepam [Ativan] 1 tab PO BID PRN 07/17/21 07/17/21 oxyCODONE [Roxicodone] 1 - 2 tab PO Q4H PRN MDD NTE 8 07/17/21 07/17/21 tabs per day Naloxone HCl Nasal [Narcan Nasal] 07/26/21 Senna [Senokot] 8.6 mg PO TID PRN 07/26/21 07/26/21 Venlafaxine ER [Effexor ER] 150 mg PO QPM 07/26/21 07/26/21 polyethylene glycoL 3350 [Miralax] 17 gm PO DAILY PRN 07/26/21 07/26/21 Lidocaine/Prilocain 2.5% Cream 5 applic TOP UD #1 gm 07/30/21 [Emla 2.5% Cream] Ondansetron Odt [Zofran Odt] 4 mg SL Q6H PRN #30 tab 07/30/21 Lidocaine/Prilocain 2.5% Cream 5 applic TOP DAILY #1 tu 08/13/21 [Emla 2.5% Cream] Senna [Senokot] 8.6 mg PO DAILY 08/24/21 08/24/21 Morphine Sulfate [Ms Contin] 15 mg PO QPM 10/10/21 10/10/21 - Allergies Allergies/Adverse Reactions: Allergies Allergy/AdvReac Type Severity Reaction Status Date / Time No Known Drug Allergies Allergy Verified 07/26/21 12:13 Review of Systems - Constitutional Constitutional: reports: Weight loss (history of). denies: Fever, Poor appetite - Eyes Eyes: reports: Other (floaters, history of cataract extraction OU) - Ears, Nose & Throat Ears, Nose & Throat: reports: Dentures. denies: Hearing aids, Mouth lesions - Cardiovascular Cardiovascular: reports: Edema (trace), Exertional dyspnea (improved with supplemental oxygen), Decr. exercise tolerance. denies: Chest pain - Respiratory Respiratory: reports: Cough, Wheezing, SOB with exertion (due to COPD and ciagarette use) - Gastrointestinal Gastrointestinal: reports: Good appetite. denies: Abdominal pain, Constipation (BM daily to every other day, see HPI), Diarrhea, Nausea, Vomiting - Genitourinary Genitourinary: denies: Dysuria - Musculoskeletal Musculoskeletal: reports: Back pain (between shoulder blades), Muscle weakness, Assistive devices (has a rollator from [employer] that was put together, see HPI) - Integumentary Integumentary: reports: Dryness, Other (History of wounds to BLE) - Neurological Neurological: reports: General weakness. denies: Dizziness - Psychiatric Psychiatric: reports: Depression (on effexor), Anxiety (improved per report) - Endocrine Endocrine: reports: Diabetes type 2 (no longer on metformin with last HgA1C 6.2% 02/2021) - Hematologic/Lymphatic Hematologic/Lymph: reports: Anemia - All Other Systems All Other Systems: reports: Reviewed and negative (caregiver supplements ROS) Physical Exam - Vital Signs Temperature: 36.2 C Pulse Rate: 73 O2 Saturation: 90 Blood Pressure: 130/48 - Physical Exam General Appearance: positive: No acute distress, Alert, Other (Appears older than stated age) Eyes Bilateral: positive: Normal inspection ENT: positive: No signs of dehydration, Other (+endentuolous with dentures not in place) Neck: positive: Trachea midline Cardiovascular: positive: Regular rate & rhythm Respiratory: positive: No respiratory distress, Wheezes (throughout), Other (supplemental oxygen in place) Abdomen: positive: Non-tender, Soft, Nml bowel sounds Skin: positive: Dryness (BLE with large flakes and appears yolk spray drier than last evaluation.) Extremities: positive: Pedal edema (Trace) Neurologic/Psychiatric: positive: Oriented x3, Mood/affect nml (less anxiety noted today), Weakness Palliative Care - POLST Patient has POLST: No POLST Status: Full Code Pain: Pain worsening (between shoulder blades and around left shoulder with increased oxycodone use) - Palliative Care Discussion: Patient has had overall reduction in her anxiety since last evaluation and increase of BuSpar and therefore will not make any adjustments at this time. Patient is having increased escalating pain likely surrounding her potential underlying osteoarthritis as well as in the setting of metastatic bone pain. She is having increased risks of total usage and therefore introduced the role of MS Contin 15 mg taken nightly with the goal to improve sleep, pain, and therefore will have the reduction of lorazepam moving forward in the future. Patient and caregiver aware of role of MS Contin for long-acting pain relief and setting Expectations that we will gradually increase MS Contin to scheduled dosing up to 3 times per day and we will see where the patient lands. Verbalized understanding and will move forward. Impression and Recommendations - Palliative Care Impression: This is a 76-year-old female with multiple comorbidities diagnosed with left lingular adenocarcinoma in the setting of tobacco abuse unfortunately with bony metastases who began immunotherapy on 08/07/2021. She has had increased pain reports with increased use of oxycodone and therefore will initiate MS COntin 15mg nightly with goal to titrate further up. Counseled again on reduction of alcohol use slowly on a weekly basis. Palliative care will continue to build rapport, explore goals of care, provide pain and symptom management as well as anticipatory guidance. Recommendations/Counseling Done: 1.Alcoholism. Cautioned patient in regards to alcohol use with opioid and benzodiazepine use due to potential for increased sedation with understanding verbalized. Discussed gradual reduction on a weekly basis of alcohol use with vodka and to steadily increase her dilution of the vodka with water with the goal to gradually discontinue and avoid risk of withdrawal symptoms. Patient is amenable to slowly cut back and re-educated regarding this today. 2. Pain of neoplasm. Increased oxycodone use in setting of neoplasm and increased activity. Initiate MS COntin 15mg nightly for pain management with expectation to increase dosing frequency. Discussed purpose, dose and side effects of MS Contin with understanding verbalized by patient and caregiver. Oxycodone 5mg administer 1-2 tablets every 4 hours as needed for pain NTE 8 tablets per day. Has Narcan in home. Patient to f/u with palliative care RN mo rnings following first administation of MS COntin. Continue to monitor and dose titrate accordingly. 3. COnstipation. Increase senna to 1 tablet nightly. Sedentary lifestyle and opioid contributing. 4. Anxiety. Longstanding history of anxiety and depression now with exacerbation of anxiety symptoms due to her underlying diagnosis of cancer. She has as needed lorazepam to take as prescribed within the home. Discussed titrating back to one lorazepam per day. Continue BuSpar to 10 mg 3 times daily. Continue Effexor as prescribed . We will also introduced the role of the palliative care steam finisher at next evaluation to see if the patient will be open for any additional talk therapy. 5. Floaters. Noted increase and initation after immunotherapy. Reached out of oncologist regarding symptom and awaiting return response. Advised patient to make oncologist aware at next office visit on 10/16 as well. 6. COPD. Requires supplemental oxygen 2 L via nasal cannula during ambulation and at rest. Goal to keep blood pulse ox above 90%. 7. Chronic kidney disease. Discussed with patient given her history of hypertension and prior history of diabetes mellitus this can be contributing factors to chronic kidney disease. Provided handout from [facility] for reference. Again, discussed cutting back on alcohol intake. Avoid nephrotoxic's medications when possible. 8. Left lingular adenocarcinoma. Diagnosed . Began immunotherapy with nivolumab on 08/07/2021. Followed by oncology. Total time spent 50 minutes with greater than 50% of the spent in counseling and coordination of care with the patient and caregiver; expectations regarding pain management and purpose, dose, and side effects of MS Contin; pain and symptom management; and anticipatory guidance. Disclaimer: The chart note was formulated using voice recognition technology and unfortunately sound alike errors may occur.
== END 2021-10-10 13:31 | disposition home or self-care (01) ==
LOC: PC 13:30
PROVIDERS: ATTEND Nurse Practitioner Family
DX: Z51.5 Encounter for palliative care (principal); G89.3 Neoplasm related pain (acute) (chronic); F10.20 Alcohol dependence, uncomplicated; F41.9 Anxiety disorder, unspecified; J44.9 Chronic obstructive pulmonary disease, unspecified; C79.51 Secondary malignant neoplasm of bone; C34.12 Malignant neoplasm of upper lobe, left bronchus or lung; K59.00 Constipation, unspecified; N18.9 Chronic kidney disease, unspecified; H43.399 Other vitreous opacities, unspecified eye; Z79.891 Long term (current) use of opiate analgesic; Z79.899 Other long term (current) drug therapy; Z99.81 Dependence on supplemental oxygen
CPT/HCPCS: 99349

== ENCOUNTER 2021-10-16 08:22 | Outpatient (CLI) | payer MEDICARE, MEDICAID ==
--- NOTE | 2021-10-16 12:36 | CONSULTATION NOTE ---
Palliative Care Follow Up - Referral Referring Provider: Dr. Marley Sherman Time of Visit: Intiated 0900 Referral setting: [facility] Referral Reason: Pain of neoplasm/Constipation/Tobacco and alochol abuse - Information Sources Records reviewed: RN notes reviewed History/Review of Systems obtained from: Patient, Caregiver (Manisha) Exam limitations: No limitations - History of Present Illness Update Brief HPI Update: Patient is seen and evaluated in [facility] clinic today for follow-up due to left lingular adenocarcinoma with bony mets, history of tobacco use and alcoholism, lower extremity dryness and constipation with her caregiver, Diana present. Provider wore N95 mask. Last evaluation, the patient was initiated on MS Contin 15 mg in the evening for pain that was waking her up at night and due to increased use of oxycodone. She continues to take 10 to 15 mg of oxycodone 3-4 times per day despite initiation of MS Contin 15 mg in the evening for pain. She is unclear if it is "truly working." She does find she has a little bit of extra sedation in the morning based on when she takes her MS Contin before bed. Since last evaluation she has diluted her vodka as previously discussed and has been doing well with this dose reduction. Anxiety has not increased. She reports that she is smoking half a pack of cigarettes per day which is extremely low for her. She denies headache or dizziness. She is reporting a rash on her bilateral breast that has been present for a few weeks with mild pruritus. Has not tried anything. She has transition to utilizing her senna daily and is reporting a bowel movement daily with no straining. She and her caregiver have been applying Aquaphor to her lower extremities and this is resulted in reduction and dry flakiness. She is requesting a refill of her gabapentin. 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 Positive Covid19 booster and vaccine. Social History - Living Situation Living arrangement: At home Living Situation: Alone Support System: The patient lives alone. 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 She grew up in [place], [place]. She has 1 daughter who resides in [place]. Her caregiver Diana through [employer] comes 5 days/week with contact number [phone]. Diana has been acting as a strong advocate for the patient. Medications/Allergies - Medications Home Medications: Ambulatory Orders Medication Instructions Recorded Confirmed Albuterol Sulfate [Proair Hfa 2 puffs INH Q4H PRN 02/26/18 06/26/21 Inhaler] Atorvastatin Calcium 10 mg PO DAILY 02/26/18 06/26/21 Metoprolol Succinate [Toprol Xl] 50 mg PO BID 02/26/18 06/26/21 Venlafaxine HCl [Venlafaxine HCl 75 mg PO .IN AM 02/26/18 06/26/21 ER] Amlodipine Besylate [Norvasc] 5 mg PO DAILY 04/05/20 06/26/21 Aripiprazole [Abilify] 2 mg PO QPM 04/05/20 06/26/21 Buspirone HCl 10 mg PO TID 04/05/20 06/26/21 Gabapentin 300 mg PO MDD 04/05/20 06/26/21 .1200mgAM,900mgafternoon & PM rOPINIRole [Requip] 0.5 mg PO QPM 04/05/20 06/26/21 Umeclidinium [place] [Incruse 62.5 mcg INH BID 11/07/20 06/26/21 Ellipta] Mupirocin 2% Oint [Bactroban 2% 1 applic TOP BID #22 gm 12/19/20 06/26/21 Oint] LORazepam [Ativan] 1 tab PO BID PRN 07/17/21 07/17/21 oxyCODONE [Roxicodone] 1 - 2 tab PO Q4H PRN MDD NTE 8 07/17/21 07/17/21 tabs per day Naloxone HCl Nasal [Narcan Nasal] 07/26/21 Senna [Senokot] 8.6 mg PO TID PRN 07/26/21 07/26/21 Venlafaxine ER [Effexor ER] 150 mg PO QPM 07/26/21 07/26/21 polyethylene glycoL 3350 [Miralax] 17 gm PO DAILY PRN 07/26/21 07/26/21 Lidocaine/Prilocain 2.5% Cream 5 applic TOP UD #1 gm 07/30/21 [Emla 2.5% Cream] Ondansetron Odt [Zofran Odt] 4 mg SL Q6H PRN #30 tab 07/30/21 Lidocaine/Prilocain 2.5% Cream 5 applic TOP DAILY #1 tu 08/13/21 [Emla 2.5% Cream] Senna [Senokot] 8.6 mg PO DAILY 08/24/21 08/24/21 Morphine Sulfate [Ms Contin] 15 mg PO BID 10/10/21 10/10/21 Nystatin [Nystop] 1 applic TP BID MDD under breasts 10/16/21 10/16/21 - Allergies Allergies/Adverse Reactions: Allergies Allergy/AdvReac Type Severity Reaction Status Date / Time No Known Drug Allergies Allergy Verified 07/26/21 12:13 Review of Systems - Constitutional Constitutional: reports: Fatigue, Weight loss (26lbs after GI illness in May 2021--unintentional). denies: Fever, Poor appetite - Eyes Eyes: reports: Other (+floaters after immunotherapy) - Ears, Nose & Throat Ears, Nose & Throat: reports: Dentures. denies: Hearing aids, Mouth lesions - Cardiovascular Cardiovascular: reports: Edema, Exertional dyspnea (improved with supplemental oxygen), Decr. exercise tolerance. denies: Chest pain - Respiratory Respiratory: reports: Cough, Wheezing - Gastrointestinal Gastrointestinal: reports: Good appetite. denies: Abdominal pain, Constipation (BM daily, see HPI), Nausea, Vomiting - Musculoskeletal Musculoskeletal: reports: Back pain (between shoulder blades), Muscle weakness, Assistive devices (received a rollator from [employer]) - Integumentary Integumentary: reports: Dryness (improved with return to routine use of aquaphor to BLE) - Neurological Neurological: reports: General weakness. denies: Headache - Psychiatric Psychiatric: reports: Depression (on effexor), Anxiety - Endocrine Endocrine: reports: Diabetes type 2 (no longer on metformin with last HgA1C 6.2% 02/2021) - Hematologic/Lymphatic Hematologic/Lymph: reports: Anemia - All Other Systems All Other Systems: reports: Reviewed and negative (caregiver supplements ROS) Physical Exam - Physical Exam General Appearance: positive: No acute distress, Alert, Other (Appears older than stated age) Eyes Bilateral: positive: Normal inspection ENT: positive: No signs of dehydration, Other (+dentures in place). negative: Oral lesions Neck: positive: Trachea midline. negative: Lymphadenopathy (R), Lymphadenopathy (L) Cardiovascular: positive: Regular rate & rhythm Respiratory: positive: No respiratory distress, Wheezes (throughout, decreased compared to previous exams) Abdomen: positive: Non-tender, Soft, Nml bowel sounds. negative: Distended Skin: positive: Dryness (BLE, improved dry flakiness since last week), Other (mild erythema under b/l breast consistent with candidasis) Extremities: positive: Pedal edema (Trace) Neurologic/Psychiatric: positive: Oriented x3, Mood/affect nml, Weakness Palliative Care - POLST Patient has POLST: No POLST Status: Full Code Pain: Pain unchanged (see HPI) Constipation: Yes, Opoid induced, Managed - Palliative Care Discussion: Patient continues to utilizeApproximately 45 mg of oxycodone per day in addition to MS Contin 15 mg at bedtime. She is sleeping slightly better at night since initiation of MS Contin last week however, due to pain not being adequately controlled we will increase MS Contin to 15 mg twice daily setting expectations that we will need to gradually increase potentially to 3 times daily dosing based on the patient's response. She is aware to continue to keep track of her oxycodone usage moving forward. Lengthy discussion with JOSIE Nye regarding the patient's floaters after immunotherapy and will request follow-up with pre parole counseling aide for dilated examination due to potential side effect of immunotherapy with verbalized. Results - Lab Results Lab results reviewed: Yes Lab and Imaging Results: 10/16/2021 WBC 6.3, hemoglobin 11.6, hematocrit 36%, RDW 15, platelet 319 Impression and Recommendations - Palliative Care Impression: This is a 76-year-old female with multiple comorbidities diagnosed with left lingular adenocarcinoma in the setting of tobacco abuse unfortunately with bony metastases who began immunotherapy on 08/07/2021. Her pain has gradually increased and will require further dose adjustment of MS Contin to 50 mg twice daily and continue to set expectations. Her anxiety is under better control since increase of BuSpar dosage. She has also cut back on her alcohol and tobacco use. Palliative care will continue to build rapport, explore goals of care, provide pain and symptom management as well as anticipatory guidance. Recommendations/Counseling Done: 1. Pain of neoplasm. Continued oxycodone use in the setting of neoplasm and increase activity. Increase MS Contin to 15 mg twice daily and continue to set expectations regarding dosing frequency and side effects. Advised patient to initiate first dose on 09/16/2021 and to contact palliative care with status update the following day with understanding verbalized. Continue oxycodone 5 mg to administer 1 to 2 tablets every 4 hours as needed for pain not to exceed 8 tablets/day. Has Narcan in the home. Continue to monitor and titrate dose accordingly setting expectations that patient is unlikely to be pain-free. 2.Bilateral lower extremity xerosis. Significant improvement with routine application of Aquaphor. Advised to continue to utilize this moving forward. 3. Constipation. Controlled. Continue senna 1 tablet nightly. Sedentary lifestyle and opioid therapy contributing. 4. Floaters, ocular. Resulting after never Lambe infusions. May be due to systemic inflammatory response versus side effect of immunotherapy. Denies overt symptoms at this time. Previously normal eye exam the last 3 to 4 months. Requested the patient's follow-up with her pre parole counseling aide, Dr. Brothers to make them aware she is on immunotherapy and to have a dilated eye exam due to these floaters. 5. Peripheral neuropathy. Refill of gabapentin provided to [facility]. 6. Cutaneous candidiasis under bilateral breasts. Discussed increased risk and will initiate nystatin powder to be applied topically twice a day for the next 2 weeks. Discussed waking at night with use of towels to reduce recurrence. 50 minutes with review of labs, oncology note, coordination with oncology staff including JOSIE Kim; [id number] with patient for counseling on pain and symptom management, anticipatory guidance and advanced care planning as well as examination. Disclaimer: The chart note was formulated using voice recognition technology and unfortunately sound alike errors may occur.
== END 2021-10-16 08:23 | disposition home or self-care (01) ==
LOC: PC 08:22
PROVIDERS: ATTEND Nurse Practitioner Family
DX: Z51.5 Encounter for palliative care (principal); G89.3 Neoplasm related pain (acute) (chronic); F17.210 Nicotine dependence, cigarettes, uncomplicated; F10.20 Alcohol dependence, uncomplicated; K59.03 Drug induced constipation; T40.2X5A Adverse effect of other opioids, initial encounter; Z79.891 Long term (current) use of opiate analgesic; Z79.899 Other long term (current) drug therapy; L85.3 Xerosis cutis; H43.399 Other vitreous opacities, unspecified eye; G62.9 Polyneuropathy, unspecified; B37.2 Candidiasis of skin and nail; C34.12 Malignant neoplasm of upper lobe, left bronchus or lung
CPT/HCPCS: 99215; 99497

== ENCOUNTER 2021-10-24 15:15 | Outpatient (CLI) | payer MEDICARE, MEDICAID ==
--- NOTE | 2021-10-24 16:16 | CONSULTATION NOTE ---
Palliative Care Follow Up - Referral Referring Provider: Dr. Marley Sherman Time of Visit: Intiated 1525 Referral setting: Home Referral Reason: Pain of neoplasm/Wound/Alcohol abuse - Information Sources Records reviewed: Previous records reviewed History/Review of Systems obtained from: Patient, Caregiver (Manisha) Exam limitations: No limitations - History of Present Illness Update Brief HPI Update: Patient is seen in follow-up due to left lingular adenocarcinoma with bony mets, history of alcoholism, candidiasis and now presenting with a wound to her right medial ankle with her caregiver, Diana present. Provider wore N95 mask. On 10/16/2021 the patient was instructed to increase her MS Contin to 15 mg twice daily given her oxycodone usage and reports of increasing pain. Since increasing her MS Contin to 15 mg twice daily she reports an improvement in her generalized pain and is feeling more comfortable. She reports she is no longer waking up in pain. She is however, taking her oxycodone at times to "griggs off pain." Discussed kimber appropriate utilization of oxycodone for breakthrough pain and to take when pain begins and not to griggs off as MS Contin is acting in the background. Presently taking typically 6 oxycodone tablets per day of 5 mg equating to 30 mg of oxycodone per day. Her caregiver reports that she intermittently will be experiencing doom and gloom with anxiety most recently during showering and this resolves with taking the lorazepam. Advised to only take 1 lorazepam and not to at a time. Patient's mindset has been if 1 is helpful to would be better. Again, reeducated. She did go to the [facility], Dr. Brothers to have her eyes evaluated given reports of increased floaters after immunotherapy infusions. Dr. Brothers reported that there were no changes on her dilated eye exam since last evaluation in May 2021 and she is to follow-up in 6 months. Periodically at rest she will be on room air and not use her supplemental oxygen ranging between 89 to 93%. Discussed goal to be above 90%. Patient was previously followed by the wound care clinic and had resolution of her lower extremity wounds. However, she recently developed a wound to her right medial malleolus that she describes significantly likely leading to increased skin breakdown and she has been keeping it clean and with a dressing. She is also applying Aquaphor to her lower extremities. There has been no spreading redness surrounding the open wound. She has been diluting her vodka on a daily basis. She has increased her length of time before she has drunk a liter of vodka from 2 to 3 days to 5 days which is an improvement. 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 Positive Covid19 booster and vaccine. Social History - Living Situation Living arrangement: At home Living Situation: Alone Support System: The patient lives alone. 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 She grew up in [place], [place]. She has 1 daughter who resides in [place]. Her caregiver Diana through [employer] comes 5 days/week with contact number [phone]. Diana has been acting as a strong advocate for the patient. Medications/Allergies - Medications Home Medications: Ambulatory Orders Medication Instructions Recorded Confirmed Albuterol Sulfate [Proair Hfa 2 puffs INH Q4H PRN 02/26/18 06/26/21 Inhaler] Atorvastatin Calcium 10 mg PO DAILY 02/26/18 06/26/21 Metoprolol Succinate [Toprol Xl] 50 mg PO BID 02/26/18 06/26/21 Venlafaxine HCl [Venlafaxine HCl 75 mg PO .IN AM 02/26/18 06/26/21 ER] Amlodipine Besylate [Norvasc] 5 mg PO DAILY 04/05/20 06/26/21 Aripiprazole [Abilify] 2 mg PO QPM 04/05/20 06/26/21 Buspirone HCl 10 mg PO TID 04/05/20 06/26/21 Gabapentin 300 mg PO MDD 04/05/20 06/26/21 .1200mgAM,900mgafternoon & PM rOPINIRole [Requip] 0.5 mg PO QPM 04/05/20 06/26/21 Umeclidinium [place] [Incruse 62.5 mcg INH BID 11/07/20 06/26/21 Ellipta] Mupirocin 2% Oint [Bactroban 2% 1 applic TOP BID #22 gm 12/19/20 06/26/21 Oint] LORazepam [Ativan] 1 tab PO BID PRN 07/17/21 07/17/21 oxyCODONE [Roxicodone] 1 - 2 tab PO Q4H PRN MDD NTE 8 07/17/21 07/17/21 tabs per day Naloxone HCl Nasal [Narcan Nasal] 07/26/21 Senna [Senokot] 8.6 mg PO TID PRN 07/26/21 07/26/21 Venlafaxine ER [Effexor ER] 150 mg PO QPM 07/26/21 07/26/21 polyethylene glycoL 3350 [Miralax] 17 gm PO DAILY PRN 07/26/21 07/26/21 Lidocaine/Prilocain 2.5% Cream 5 applic TOP UD #1 gm 07/30/21 [Emla 2.5% Cream] Ondansetron Odt [Zofran Odt] 4 mg SL Q6H PRN #30 tab 07/30/21 Lidocaine/Prilocain 2.5% Cream 5 applic TOP DAILY #1 tu 08/13/21 [Emla 2.5% Cream] Senna [Senokot] 8.6 mg PO DAILY 08/24/21 08/24/21 Morphine Sulfate [Ms Contin] 15 mg PO BID 10/10/21 10/10/21 Nystatin [Nystop] 1 applic TP BID MDD under breasts 10/16/21 10/16/21 - Allergies Allergies/Adverse Reactions: Allergies Allergy/AdvReac Type Severity Reaction Status Date / Time No Known Drug Allergies Allergy Verified 07/26/21 12:13 Review of Systems - Constitutional Constitutional: reports: Fatigue, Weight loss (26lbs after GI illness in May 2021--unintentional). denies: Fever, Poor appetite - Eyes Eyes: reports: Other (Floaters increased after immuotherapy, stable eye exam per patient with Dr. Brothers and will request OV note) - Ears, Nose & Throat Ears, Nose & Throat: reports: Dentures. denies: Hearing aids, Mouth lesions - Cardiovascular Cardiovascular: reports: Exertional dyspnea (improved with supplemental oxygen), Decr. exercise tolerance. denies: Chest pain - Respiratory Respiratory: reports: Cough (due to tobacco use and COPD), Wheezing, SOB with exertion - Gastrointestinal Gastrointestinal: reports: Good appetite (when she is hungry she reports "I will eat."). denies: Abdominal pain, Constipation (BM daily to every other day without straining), Nausea, Vomiting - Genitourinary Genitourinary: denies: Dysuria - Musculoskeletal Musculoskeletal: reports: Back pain (between shoulder blades--improved with MS COntin 15mg BID), Muscle weakness, Assistive devices (received a rollator from [employer]) - Integumentary Integumentary: reports: Dryness, Other (wound to right ankle present slightly less than 1 week) - Neurological Neurological: reports: General weakness. denies: Headache - Psychiatric Psychiatric: reports: Depression (on effexor), Anxiety - Endocrine Endocrine: reports: Diabetes type 2 (no longer on metformin with last HgA1C 6.2% 02/2021) - Hematologic/Lymphatic Hematologic/Lymph: reports: Anemia - All Other Systems All Other Systems: reports: Reviewed and negative (caregiver supplements ROS) Physical Exam - Vital Signs Temperature: 36.6 C Pulse Rate: 71 O2 Saturation: 93 (on RA) Blood Pressure: 108/63 - Physical Exam General Appearance: positive: No acute distress, Alert, Other (Appears older than stated age) Eyes Bilateral: positive: Normal inspection ENT: positive: No signs of dehydration, Other (Endentulous without dentures in [place]) Neck: positive: Trachea midline Cardiovascular: positive: Regular rate & rhythm Respiratory: positive: No respiratory distress, Wheezes Abdomen: positive: Non-tender, Soft, Nml bowel sounds Skin: positive: Dryness, Bruising (dorsal aspect of right hand), Rash (Almost r esolved erythema under right breast and mild erythema under left breast c/w candidasis), Wound (Right medial malleous appx 1cm, circular without surrounding erythema and appears to be pressure related no discharge evidence at this time but reported by patient) Extremities: positive: Pedal edema (Trace BLE) Neurologic/Psychiatric: positive: Oriented x3, Mood/affect nml Palliative Care - POLST Patient has POLST: No Pain: Pain improved Sleep: Variable sleep pattern Constipation: Yes, Opoid induced, Managed - Palliative Care Discussion: Patient has done well with increase of MS Contin to 15 mg twice daily and improvement in her overall pain. Continues to require reorientation and setting expectations that utilizing her oxycodone preemptively for fear of pain de veloping in the morning and off is not the right strategy and to take if she has begetting development of pain with understanding verbalized. Continue to monitor her oxycodone usage to determine dose titration of MS Contin. At the present time does not require increase in her MS Contin frequency but will continue to monitor. She has developed a wound to her right medial malleolus and would benefit from returning to the wound care clinic for wound care management and a referral will be placed. Continue to monitor for signs and signs and symptoms of infection offloading. After evaluation with [facility] no evidence of abnormalities reported by the patient ocularly and was specifically to her retina due to the patient's reports of increased floaters after immunotherapy. She is relieved regarding this findings. She has done significantly well with reducing her alcohol consumption and next goal will be to further reduce her purchase of of vodka and have it last for a week versus 5 days to continue gradually tapering her usage. Impression and Recommendations - Palliative Care Impression: This is a 76-year-old female with multiple comorbidities diagnosed with left lingular adenocarcinoma in the setting of tobacco abuse unfortunately with bony metastases who began immunotherapy on 08/07/2021. She has had improvement with her pain with increase of MS Contin to 15 mg twice daily and continue to set expectations regarding oxycodone usage. She has significantly cut back on her alcohol use and is appropriately pleased regarding this reduction. Palliative care will continue to build rapport, explore goals of care, provide pain and symptom management as well as anticipatory guidance. Recommendations/Counseling Done: 1. Pain of neoplasm. Improvement in pain with increase of MS Contin to 15 mg twice daily and continue to set expectations regarding oxycodone use. New Rx for MS Contin 15 mg twice daily quantity of 60 sent to [email or web address] pharmacy due to dose change. Continue oxycodone 5 mg to administer 1 to 2 tablets every 4 hours as needed for pain not to exceed 8 tablets/day. Has Narcan in the home. Continue to monitor and titrate dose accordingly and continue to set expectations for the patient that she is unlikely to be pain-free and utilization of oxycodone is for development of pain and would avoid preemptively taking. Continue to provide support and education. 2. Wound to right medial malleolus. Appears to be pressure related. No evidence of cellulitis. Given the patient's multiple comorbidities and history of diabetes mellitus will refer to wound care clinic at [facility] for evaluation and treatment. Continue to cleanse and cover daily and monitor for signs and symptoms of infection. 3. Cutaneous candidiasis under bilateral breasts. Improved and almost resolved. Continue application of nystatin twice daily until resolved. 4. Floaters, ocular. Status post optometry evaluation to reevaluate and per patient report retina is stable from prior examination in May 2021. We will request follow-up office visit note from Dr. Brothers and no evidence of immunotherapy contributing and does have a history of floaters. 5. Anxiety. Longstanding history of anxiety and depression. Set expectations regarding utilization of lorazepam to only take 1 dose at a time. Continue BuSpar 10 mg 3 times daily. Continue Effexor as prescribed. Consider introduction of palliative care formula technician at next evaluation to see if the pat ient would be open for any additional support. Does have her, caregiver, Diana who offers significant support. CPT 97651 Plan of care reviewed at length with patient and caregiver with questions answered and addressed. Disclaimer: The chart note was formulated using voice recognition technology and unfortunately sound alike errors may occur.
== END 2021-10-24 15:16 | disposition home or self-care (01) ==
LOC: PC 15:15
PROVIDERS: ATTEND Nurse Practitioner Family
DX: Z51.5 Encounter for palliative care (principal); G89.3 Neoplasm related pain (acute) (chronic); C79.51 Secondary malignant neoplasm of bone; F41.9 Anxiety disorder, unspecified; H43.399 Other vitreous opacities, unspecified eye; B37.2 Candidiasis of skin and nail; S91.001A Unspecified open wound, right ankle, initial encounter; Z79.891 Long term (current) use of opiate analgesic; Z79.899 Other long term (current) drug therapy; K59.03 Drug induced constipation; T40.2X5A Adverse effect of other opioids, initial encounter; C34.12 Malignant neoplasm of upper lobe, left bronchus or lung; F10.10 Alcohol abuse, uncomplicated; Z99.81 Dependence on supplemental oxygen; Z72.0 Tobacco use
CPT/HCPCS: 99349

== ENCOUNTER 2021-11-07 15:20 | Outpatient (CLI) | payer MEDICARE, MEDICAID ==
--- NOTE | 2021-11-07 16:48 | CONSULTATION NOTE ---
Palliative Care Follow Up - Referral Referring Provider: Dr. Marley Sherman Time of Visit: 0650-5197 Referral setting: Home Referral Reason: Pain of neoplasm/Alcohol abuse/Lung Ca - Information Sources Records reviewed: Previous records reviewed History/Review of Systems obtained from: Patient, Caregiver (Manisha) Exam limitations: No limitations - History of Present Illness Update Brief HPI Update: Patient is seen and evaluated today within her home for follow-up due to left lingular adenocarcinoma with bony mets, history of alcoholism and pain and of neoplastic origin with her caregiver, Diana present. Provider wore N95 mask. The patient is presently on MS Contin 15 mg twice daily. She is taking oxycodone 10 mg approximately 2-3 times per day with positive response however, she feels that "it could be better." She continues to dilute her vodka as previously discussed. She is typically consuming about 1 L of vodka in 4 days with this dilution. Denies any signs or symptoms of withdrawal. She also continues smoking about half a pack of cigarettes per day. She developed a wound to her right ankle and is now being followed by wound care. Her antibiotic was changed after wound culture growth came back with resistance with her first antibiotic and now she is on Cipro twice a day for 7 days. She does have some discomfort at her ankle but reports that it is "more of an annoyance." She also is back to wearing Tubigrip's to her bilateral lower extremities. She reports that she is having a bowel movement regularly and is consuming prune juice every other day. Her appetite has also improved and she has gained approximately 2 pounds. 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 Positive Covid19 booster and vaccine. Social History - Living Situation Living arrangement: At home Living Situation: Alone Support System: The patient lives alone. 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 She grew up in [place], [place]. She has 1 daughter who resides in [place]. Her caregiver Diana through [email or web address] comes 5 days/week with contact number [phone]. Diana has been acting as a strong advocate for the patient. She just purchased a whole bunch of plans for her apartment however, it is having to rethink this as her caregiver, Diana has a sensitivity to the plants. Medications/Allergies - Medications Home Medications: Ambulatory Orders Medication Instructions Recorded Confirmed Albuterol Sulfate [Proair Hfa 2 puffs INH Q4H PRN 02/26/18 06/26/21 Inhaler] Atorvastatin Calcium 10 mg PO DAILY 02/26/18 06/26/21 Metoprolol Succinate [Toprol Xl] 50 mg PO BID 02/26/18 06/26/21 Venlafaxine HCl [Venlafaxine HCl 75 mg PO .IN AM 02/26/18 06/26/21 ER] Amlodipine Besylate [Norvasc] 5 mg PO DAILY 04/05/20 06/26/21 Aripiprazole [Abilify] 2 mg PO QPM 04/05/20 06/26/21 Buspirone HCl 10 mg PO TID 04/05/20 06/26/21 Gabapentin 300 mg PO MDD 04/05/20 06/26/21 .1200mgAM,900mgafternoon & PM rOPINIRole [Requip] 0.5 mg PO QPM 04/05/20 06/26/21 Umeclidinium [place] [Incruse 62.5 mcg INH BID 11/07/20 06/26/21 Ellipta] Mupirocin 2% Oint [Bactroban 2% 1 applic TOP BID #22 gm 12/19/20 06/26/21 Oint] LORazepam [Ativan] 1 tab PO BID PRN 07/17/21 07/17/21 oxyCODONE [Roxicodone] 1 - 2 tab PO Q4H PRN MDD NTE 8 07/17/21 07/17/21 tabs per day Naloxone HCl Nasal [Narcan Nasal] 07/26/21 Senna [Senokot] 8.6 mg PO TID PRN 07/26/21 07/26/21 Venlafaxine ER [Effexor ER] 150 mg PO QPM 07/26/21 07/26/21 polyethylene glycoL 3350 [Miralax] 17 gm PO DAILY PRN 07/26/21 07/26/21 Lidocaine/Prilocain 2.5% Cream 5 applic TOP UD #1 gm 07/30/21 [Emla 2.5% Cream] Ondansetron Odt [Zofran Odt] 4 mg SL Q6H PRN #30 tab 07/30/21 Lidocaine/Prilocain 2.5% Cream 5 applic TOP DAILY #1 tu 08/13/21 [Emla 2.5% Cream] Senna [Senokot] 8.6 mg PO DAILY 08/24/21 08/24/21 Morphine Sulfate [Ms Contin] 15 mg PO TID 10/10/21 10/10/21 Nystatin [Nystop] 1 applic TP BID MDD under breasts 10/16/21 10/16/21 Ciprofloxacin HCl 1 tablet PO BID 7 Days #14 tablet 11/06/21 Triamcinolone 0.1% Cream [Kenalog 1 applic TOP BID #80 gm 11/07/21 0.1% Cream] - Allergies Allergies/Adverse Reactions: Allergies Allergy/AdvReac Type Severity Reaction Status Date / Time No Known Drug Allergies Allergy Verified 07/26/21 12:13 Review of Systems - Constitutional Constitutional: reports: Fatigue, Weight gain. denies: Fever, Poor appetite - Eyes Eyes: reports: Other (Floaters increased after immuotherapy, stable eye exam per patient with Dr. Brothers in October 2021) - Ears, Nose & Throat Ears, Nose & Throat: reports: Dentures. denies: Hearing aids, Mouth lesions - Cardiovascular Cardiovascular: reports: Exertional dyspnea (improved with supplemental oxygen), Decr. exercise tolerance. denies: Chest pain - Respiratory Respiratory: reports: Cough (due to tobacco use and COPD), Wheezing, SOB with exertion - Gastrointestinal Gastrointestinal: reports: Good appetite. denies: Abdominal pain, Constipation (see HPI), Nausea, Vomiting - Genitourinary Genitourinary: denies: Dysuria - Musculoskeletal Musculoskeletal: reports: Back pain (between shoulder blades and upper back, see HPI), Muscle weakness, Assistive devices (received a rollator from [employer]) - Integumentary Integumentary: reports: Dryness, Other (wound to right ankle followed by [facility]ound [facility] at [facility]) - Neurological Neurological: reports: General weakness - Psychiatric Psychiatric: reports: Depression (on effexor), Anxiety - Endocrine Endocrine: reports: Diabetes type 2 (no longer on metformin with last HgA1C 6.2% 02/2021) - Hematologic/Lymphatic Hematologic/Lymph: reports: Anemia - All Other Systems All Other Systems: reports: Reviewed and negative (caregiver supplements ROS) Physical Exam - Vital Signs Temperature: 36.2 C Pulse Rate: 76 O2 Saturation: 95 (on 2L via NC) Blood Pressure: 132/71 - Physical Exam General Appearance: positive: No acute distress, Alert, Other (Appears older than stated age) Eyes Bilateral: positive: Normal inspection ENT: positive: No signs of dehydration, Other (Endentulous without dentures in today) Neck: positive: Trachea midline Cardiovascular: positive: Regular rate & rhythm Respiratory: positive: No respiratory distress, Wheezes (throughout), Other (supplemental oxygen in place) Abdomen: positive: Non-tender, Soft, Nml bowel sounds Skin: positive: Dryness, Wound (Right medial malleous with dressing in place fo llowed by [facility] at [facility]) Extremities: positive: Pedal edema (Trace BLE) Neurologic/Psychiatric: positive: Oriented x3, Mood/affect nml Palliative Care - POLST Patient has POLST: No Sleep: Sleep improved Constipation: Yes, Opoid induced, Managed, Intermittent constipation Performance Status: Patient continues to utilize approximately 45 mg of oxycodone per day despite being on MS Contin 15 mg twice daily. Discussion had to increase MS Contin to 50 mg 3 times daily and setting expectations that would expect to have a reduction in her oxycodone use and to continue to keep track of her oxycodone usage moving forward. Patient continues to express concerns regarding "getting addicted" to opioid therapy. Lengthy education was provided to the patient and caregiver today regarding tolerance and dependence with verbalization with teach back appropriate. She continues to work on gradually reducing her alcohol consumption and set expectations that this will be a gradual process to prevent withdrawals and to continue to increase length of time between new purchase of her vodka bottles slowly over time. Patient has experienced withdrawal from alcohol in the past and this is something that she expresses concern and fear regarding. Again, set expectations regarding gradual process. Goal would be to eventually taper off of alcohol. Impression and Recommendations - Palliative Care Impression: This is a 76-year-old female with multiple comorbidities diagnosed with left lingular adenocarcinoma in setting of tobacco abuse unfortunately with bony metastases who began immunotherapy on 08/07/2021. Her pain continues between her shoulder blades and upper back and therefore we will increase her MS Contin to 15 mg 3 times daily and continue to set expectations regarding oxycodone usage for breakthrough pain. She continues to work with reduction of her alcohol consumption. Palliative care will continue to build rapport, explore goals of care, provide pain and symptom management as well as anticipatory guidance. Recommendations/Counseling Done: 1.Pain of neoplasm. Continued oxycodone use at approximately 45 MEDD per day and therefore will increase MS Contin to 15 mg 3 times daily and continue to set expectations regarding dosing and frequency as well as side effects. Patient to contact palliative care on 11/08 and 11/09 regarding status update. Continue oxycodone 5 mg to administer 1 to 2 tablets every 4 hours as needed for pain not to exceed 8 tablets/day. Has Narcan in the home. Continue to monitor and titrate dose accordingly. 2. Constipation. Controlled. Continue senna 1 tablet nightly and set expectations with dose adjustment of MS Contin may need to increase senna as go al is to have a daily soft bowel movement every other day. Continue utilization of prune juice. 3. Right ankle wound. Being followed by the primary health care. Complete ciprofloxacin as prescribed by wound care center. 4. Alcoholism. Caution to patient regarding use of alcohol with opioid and benzodiazepines with potential for increased sedation with understanding verbalized. Continue to work on gradual reduction of alcohol use with vodka and to steadily increase her dilution of her vodka with water with the goal to gradually discontinue and avoid the risk of withdrawal symptoms. Patient to trial going 5 days with utilization of 1 L of vodka and will continue to gradually increase by 1 day on a weekly basis. Patient is amenable for this trial. 5. Advanced care planning. Patient does not have a POLST in place and will follow up further regarding this as well as is additional advanced care planning next evaluation. Total time spent 40 minutes with greater than 50% of the spent in counseling and coordination of care with the patient and caregiver; evaluation of patient's to make: Review of pain and symptom management as well as anticipatory guidance. Disclaimer: The chart note was formulated using voice recognition technology and unfortunately sound alike errors may occur.
== END 2021-11-07 15:21 | disposition home or self-care (01) ==
LOC: PC 15:20
PROVIDERS: ATTEND Nurse Practitioner Family
DX: Z51.5 Encounter for palliative care (principal); F17.200 Nicotine dependence, unspecified, uncomplicated; C34.12 Malignant neoplasm of upper lobe, left bronchus or lung; G89.3 Neoplasm related pain (acute) (chronic); M54.6 Pain in thoracic spine; C79.51 Secondary malignant neoplasm of bone; K59.03 Drug induced constipation; T40.2X5A Adverse effect of other opioids, initial encounter; F10.20 Alcohol dependence, uncomplicated
CPT/HCPCS: 99349

== ENCOUNTER 2022-02-15 13:32 | Outpatient (CLI) | payer MEDICARE, MEDICAID ==
--- NOTE | 2022-02-15 14:57 | XRAY Report ---
PROCEDURE: Chest 2 View X-Ray INDICATIONS: WORSENING COUGH/INCREASED SHORTNESS OF BREATH TECHNIQUE: 2 view(s) of the chest. COMPARISON: None. FINDINGS: Surgical changes and devices: Right-sided portacatheter is present, tip of which is in the mid SVC. Lungs and pleura: No pleural effusions or pneumothorax. There is mild right greater than left bibasi lar patchy airspace opacity. Mediastinum: Mediastinal contours are normal. Heart size is normal. Bones and chest wall: No suspicious bony abnormalities. Soft tissues appear unremarkable. IMPRESSION: Bibasilar pneumonia. Follow-up PA and lateral chest x-rays or chest CT is recommended to ensure resolution, and to exclude underlying neoplasm. Reviewed by: Feliberto Jefferson MD on 02/15/2022 2:56 PM PDT Approved by: Feliberto Jefferson MD on 02/15/2022 2:56 PM PDT Station ID: [id number]
== END 2022-02-15 13:33 | disposition home or self-care (01) ==
LOC: DI 13:32
PROVIDERS: ATTEND Nurse Practitioner Adult Health
DX: C34.90 Malignant neoplasm of unspecified part of unspecified bronchus or lung (principal); J18.9 Pneumonia, unspecified organism

== ENCOUNTER 2022-02-15 16:58 | Outpatient (CLI) | payer MEDICARE, MEDICAID | END 2022-02-15 16:59 | disposition short-term general hospital (02) | LOC: EMS 16:58 | DX: J18.9 Pneumonia, unspecified organism (principal) | CPT/HCPCS: A0425; A0429 ==

== ENCOUNTER 2022-04-25 20:03 | Outpatient (CLI) | payer MEDICARE, MEDICAID ==
--- NOTE | 2022-04-25 22:24 | Ultrasound Report ---
PROCEDURE: Retroperitoneal INDICATIONS: JORGE TECHNIQUE: Real-time scanning was performed of the kidneys and bladder, with image documentation. COMPARISON: 01/24/2022 FINDINGS: Limited exams recommended to patient body habitus and inability to tolerate supine position. Kidneys: Right kidney measures 11 cm long; left kidney measures 8.2 cm long. Right renal cortical t hickness is 1.2 cm; left renal cortical thickness is 1.7 cm. Left kidney is not well visualized. Felicitas l cortical echotexture is increased bilaterally. No hydronephrosis or shadowing nephrolithiasis. No definite suspicious solid mass lesions. There are a few right renal cysts, with the largest measuring up to approximately 1.4 cm. Bladder: Pre-void bladder volume is 215 mL. Patient was unable to void. Pre-void images demonstrate no intraluminal masses or stones. Ureteral jets were not imaged. Miscellaneous: No free pelvic fluid. IMPRESSION: 1. No evidence of hydronephrosis. 2. Increased renal echogenicity bilaterally compatible with medical renal disease. Reviewed by: Merlin Dee MD on 04/25/2022 10:22 PM PDT Approved by: Merlin Dee MD on 04/25/2022 10:22 PM PDT Station ID: [id number]
== END 2022-04-25 20:04 | disposition home or self-care (01) ==
LOC: DI 20:03
PROVIDERS: ATTEND Internal Medicine Nephrology
DX: N17.9 Acute kidney failure, unspecified (principal)

== ENCOUNTER 2022-05-12 15:30 | Outpatient (CLI) | payer MEDICARE, MEDICAID | END 2022-05-12 15:31 | disposition critical access hospital (66) | LOC: EMS 15:30 | DX: T25.231A Burn of second degree of right toe(s) (nail), initial encounter (principal); X00.8XXA Other exposure to uncontrolled fire in building or structure, initial encounter; X06.2XXA Exposure to ignition of other clothing and apparel, initial encounter; Y92.039 Unspecified place in apartment as the place of occurrence of the external cause; F17.210 Nicotine dependence, cigarettes, uncomplicated; Z99.81 Dependence on supplemental oxygen | CPT/HCPCS: A0425; A0429 ==

== ENCOUNTER 2022-05-12 15:48 | Emergency (ER) | payer MEDICARE, MEDICAID ==
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
[2022-05-12] MEDS ORDERED: BACITRACIN ZINC OINT 1 PACKET TOP STA (16:20)
[2022-05-12] MEDS ORDERED: MUPIROCIN 2% OINT 1 GM TOP STA (16:21)
[2022-05-12 18:35] VITALS: BP 157/78
== END 2022-05-12 18:49 | disposition home or self-care (01) ==
LOC: EDUNIT# → ED 15:48
DX: T25.221A Burn of second degree of right foot, initial encounter (principal); X08.8XXA Exposure to other specified smoke, fire and flames, initial encounter; F17.200 Nicotine dependence, unspecified, uncomplicated
CPT/HCPCS: 99282; 99283; A9270

== ENCOUNTER 2022-05-24 12:11 | Outpatient (CLI) | payer MEDICARE, MEDICAID ==
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
== END 2022-05-24 12:12 | disposition home or self-care (01) ==
LOC: DI 12:11
PROVIDERS: ATTEND Nurse Practitioner
DX: T25.229A Burn of second degree of unspecified foot, initial encounter (principal); L97.502 Non-pressure chronic ulcer of other part of unspecified foot with fat layer exposed; F17.210 Nicotine dependence, cigarettes, uncomplicated; R60.0 Localized edema

== ENCOUNTER 2022-11-17 14:31 | Outpatient (CLI) | payer MEDICARE, MEDICAID | END 2022-11-17 14:32 | disposition EMS.NT | LOC: EMS 14:31 | DX: Z03.89 Encounter for observation for other suspected diseases and conditions ruled out (principal) ==

== ENCOUNTER 2023-01-01 10:53 | Outpatient (CLI) | payer MEDICARE, MEDICAID | END 2023-01-01 23:59 | disposition critical access hospital (66) | LOC: EMS 10:53 | DX: R53.81 Other malaise (principal); R53.83 Other fatigue; R41.0 Disorientation, unspecified; R05.9 Cough, unspecified; R09.3 Abnormal sputum; Z99.81 Dependence on supplemental oxygen; J44.9 Chronic obstructive pulmonary disease, unspecified | CPT/HCPCS: A0425; A0427 ==

== ENCOUNTER 2023-02-14 13:02 | Outpatient (CLI) | payer MEDICARE, MEDICAID ==
--- NOTE | 2023-02-14 16:00 | XRAY Report ---
PROCEDURE: Foot 3 View RT INDICATIONS: PRESSURE ULCER OF OTHER SITE TECHNIQUE: 3 views of the foot were acquired. COMPARISON: None. FINDINGS: Bones: Thin material somewhat obscures bony detail. Diffuse osteopenia. No obvious plain film eviden ce of osteomyelitis. Old healed shaft fracture of fifth metatarsal. Soft tissues: No suspicious soft tissue calcifications or masses. IMPRESSION: No obvious plain film evidence of osteomyelitis. Diffuse osteopenia. Comment: If suspect osteomyelitis, foot MRI with and without contrast may be helpful. Reviewed by: Duke Lane MD on 02/14/2023 3:59 PM PDT Approved by: Duke Lane MD on 02/14/2023 3:59 PM PDT Station ID: [id number]
== END 2023-02-14 13:03 | disposition home or self-care (01) ==
LOC: DI 13:02
PROVIDERS: ATTEND Nurse Practitioner
DX: L89.894 Pressure ulcer of other site, stage 4 (principal); M85.871 Other specified disorders of bone density and structure, right ankle and foot

== ENCOUNTER 2023-02-19 16:22 | Outpatient (CLI) | payer MEDICARE, MEDICAID | END 2023-02-19 16:23 | disposition critical access hospital (66) | LOC: EMS 16:22 | DX: R41.0 Disorientation, unspecified (principal); R53.1 Weakness; R53.83 Other fatigue; R32 Unspecified urinary incontinence | CPT/HCPCS: A0425; A0429 ==

== ENCOUNTER 2023-02-19 16:47 | Emergency (ER) | payer MEDICARE, MEDICAID ==
[2023-02-19] MEDS ORDERED: SODIUM CHLORIDE 0.9% 1,000 ML IV STA (17:05)
--- NOTE | 2023-02-19 17:38 | XRAY Report ---
PROCEDURE: Chest 1 View X-Ray INDICATIONS: dyspnea TECHNIQUE: One view of the chest was acquired. COMPARISON: Chest radiographs 01/01/2023. FINDINGS: Surgical changes and devices: A right-sided central venous catheter is seen with catheter tip projec ting over the region of the superior vena cava.. Lungs and pleura: Patient is moderately rotated towards the right. No pleural effusions or pneumotho rax. Mildly low lung volumes are seen. No definite focal pulmonary opacity. Mediastinum: Mediastinal contours appear normal. Heart size is stable. Bones and chest wall: No suspicious bony lesions. Overlying soft tissues appear unremarkable. IMPRESSION: Mildly low lung volumes. No definite acute cardiopulmonary abnormality given limitations related to p atient positioning. Reviewed by: Anson Dominguez MD on 02/19/2023 5:37 PM PDT Approved by: Anson Dominguez MD on 02/19/2023 5:37 PM PDT Station ID: [id number]
[2023-02-19 19:07] LABS: BASOPHILS % (AUTO) 0.2 %; HCT - HEMATOCRIT 26.7 % (37.0-47.0); HGB - HEMOGLOBIN 8.4 g/dL (12.0-16.0); LYMPHOCYTES % (AUTO) 14.5 %; MEAN CORPUSCULAR HEMOGLOBIN 27.5 pg (27.0-31.0); MEAN CORPUSCULAR HGB CONC 31.5 g/dL (32.0-36.0); MEAN CORPUSCULAR VOLUME 87.3 fL (81.0-99.0); MEAN PLATELET VOLUME 9.9 fL (7.9-10.8); MONOCYTES % (AUTO) 5.9 %; NEUTROPHILS % (AUTO) 74.5 %; PLT - PLATELET COUNT 316 10^3/uL (130-450); RED BLOOD COUNT 3.06 10^6/uL (4.20-5.40); RED CELL DISTRIBUTION WIDTH 14.6 % (12.0-15.0); WHITE BLOOD COUNT 15.4 x10^3/uL (4.8-10.8)
[2023-02-19 19:09] LABS: ABNORMAL LYMPHS % (MANUAL) 0 %
[2023-02-19 19:23] LABS: ALBUMIN 3.4 g/dL (3.2-5.5)
[2023-02-19 19:32] LABS: ALBUMIN/GLOBULIN RATIO 0.9 (1.0-2.2); BILIRUBIN,TOTAL 0.4 mg/dL (0.2-1.0); CALCIUM 8.7 mg/dL (8.5-10.3); CREATININE 4.8 mg/dL (0.6-1.3); POTASSIUM 4.7 mmol/L (3.5-4.5); TOTAL PROTEIN 7.1 g/dL (6.4-8.9)
[2023-02-19 20:32] LABS: BAND NEUTROPHILS % (MANUAL) 2 %; LYMPHOCYTES # (MANUAL) 1.7 10^3/uL (1.5-3.5); LYMPHOCYTES % (MANUAL) 11 %; METAMYELOCYTES % (MANUAL) 3 %; MONOCYTES # (MANUAL) 0.6 10^3/uL (0.0-1.0); MYELOCYTES % (MANUAL) 2 %; NEUTROPHILS # (MANUAL) 12.3 10^3/uL (1.5-6.6)
[2023-02-19 20:33] LABS: DIFFERENTIAL COMMENT MANUAL DIFFERENTIAL; PLATELET ESTIMATE, MANUAL NORMAL (130-450,000) (NORMAL); PLATELET MORPHOLOGY NORMAL APPEARANCE (NORMAL); RBC MORPHOLOGY (MULTIPLE) NORMAL APPEARANCE (NORMAL)
[2023-02-19 20:34] LABS: WBC MORPHOLOGY (MULTIPLE) 1+ TOXIC GRANULATION (NORMAL)
--- NOTE | 2023-02-19 20:34 | ED Physician Documentation ---
History of Present Illness - Stated complaint Stated Complaint: CONFUSED - Chief complaint Chief Complaint: Neuro - History obtained from History obtained from: Patient, EMS - Additonal information Additional information: The patient is brought to the emergency department by EMS for chief complaint of altered level of consciousness after missing a saline infusion this last week. The patient has end-stage COPD and general deconditioning, as well as chronic ulcers on her feet. She is currently on doxycycline for the ulcers, as well as seen wound care. The patient seemed to be a little more tired today and caregiver wondered if she was dehydrated. The patient denies any complaints, other than stating she hurts "everywhere". 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 - Present Medications Home Medications: Ambulatory Orders Medication Instructions Recorded Confirmed Albuterol Sulfate [Proair Hfa 2 puffs INH Q4H PRN 02/26/18 12/03/22 Inhaler] Metoprolol Succinate [Toprol Xl] 50 mg PO BID 02/26/18 12/03/22 Venlafaxine HCl [Venlafaxine HCl 75 mg PO DAILY 02/26/18 12/03/22 ER] Buspirone HCl 20 mg PO TID 04/05/20 12/03/22 rOPINIRole [Requip] 0.5 mg PO QPM MDD Taking two tabs 04/05/20 12/03/22 of 0.25 mg Umeclidinium [place] [Incruse 62.5 mcg INH BID 11/07/20 12/03/22 Ellipta] oxyCODONE [Roxicodone] 5 - 10 mg PO Q4H PRN MDD NTE 9 07/17/21 12/03/22 tabs per day Venlafaxine ER [Effexor ER] 150 mg PO QPM 07/26/21 12/03/22 Nystatin [Nystop] 1 applic TP BID MDD under breasts 10/16/21 12/03/22 predniSONE [Deltasone] 10 mg PO DAILY 07/10/22 12/03/22 Gentamicin Sulfate 30 gm TP DAILY 30 Days #30 gm 07/19/22 12/03/22 Aripiprazole [Abilify] 2 mg PO QPM 07/24/22 12/03/22 Atorvastatin [Lipitor] 10 mg PO QPM 07/24/22 12/03/22 Levothyroxine [Synthroid] 112 mcg PO DAILY 07/24/22 12/03/22 Omeprazole 40 mg PO DAILY 07/24/22 12/03/22 amLODIPine [Norvasc] 5 mg PO DAILY 07/24/22 12/03/22 Patiromer Calcium Sorbitex 8.4 gm PO DAILY #14 packet 08/26/22 12/03/22 [Veltassa] Calcium Carbonate [Calcium] 2 tab PO BID 10/29/22 12/03/22 Cholecalciferol (Vitamin D3) 2,000 units PO DAILY 10/29/22 12/03/22 [Vitamin D3] Pregabalin [Lyrica] 75 mg PO TID 10/29/22 12/03/22 Sevelamer [Renagel] 1 tab PO TID 10/29/22 12/03/22 Doxycycline Hyclate [Vibramycin] 100 mg PO BID 10 Days #20 cap 02/14/23 - Allergies Allergies/Adverse Reactions: Allergies Allergy/AdvReac Type Severity Reaction Status Date / Time No Known Drug Allergies Allergy Verified 05/12/22 16:10 - Social History Does the pt smoke?: Yes Smoking Status: Current every day smoker Does the pt drink ETOH?: Yes Does the pt have substance abuse?: No - Immunizations Immunizations are current?: No Immunizations: TDAP >10years/unknown - POLST Patient has POLST: No PD ED PE NORMAL - Vitals Vital signs reviewed: Yes - General General: No acute distress, Well developed/nourished, Other (The patient appears drowsy but answers questions appropriately, And opens her eyes when spoken to.) - HEENT HEENT: Atraumatic, PERRL, EOMI, Moist mucous membranes - Neck Neck: Supple, no meningeal sign - Cardiac Cardiac: RRR, No murmur - Respiratory Respiratory: No respiratory distress, Other (Decreased air movement bilaterally, with very faint wheezes in upper airways.) - Abdomen Abdomen: Soft, Non tender, Non distended - Derm Derm: Normal color, Warm and dry, No rash - Extremities Extremities: No deformity - Neuro Neuro: Other (Drowsy, but answers questions appropriately.) - Psych Psych: Normal mood, Normal affect Results - Vitals Vitals: Vital Signs - 24 hr 02/19/23 02/19/23 02/19/23 16:57 18:33 19:30 Temperature 37.3 C Heart Rate 113 H 128 H 125 H Respiratory 22 21 24 Rate Blood Pressure 151/83 H 135/89 H 128/99 H O2 Saturation 100 100 99 02/19/23 02/19/23 02/19/23 20:21 20:55 21:52 Temperature 36.1 C L Heart Rate 114 H 109 H 99 Respiratory 17 19 15 Rate Blood Pressure 149/115 H 162/109 H 117/69 O2 Saturation 96 100 98 02/19/23 22:37 Temperature Heart Rate 105 H Respiratory 20 Rate Blood Pressure 127/89 H O2 Saturation 100 Oxygen O2 Source [Without Activity] Oxymizer O2 Source [With Activity] Oxymizer O2 Source Room air - Labs Labs: Laboratory Tests 02/19/23 02/19/23 02/19/23 18:56 18:56 18:56 WBC 15.4 H RBC 3.06 L Hgb 8.4 L Hct 26.7 L MCV 87.3 MCH 27.5 MCHC 31.5 L RDW 14.6 Plt Count 316 MPV 9.9 Neut # (Auto) Not Reportable Lymph # (Auto) Not Reportable Wallace # (Auto) Not Reportable Eos # (Auto) Not Reportable Baso # (Auto) Not Reportable Absolute Nucleated RBC Not Reportable Total Counted 100 Band Neuts % (Manual) 2 Abnorm Lymph % (Manual) 0 Metamyelocytes % 3 H Myelocytes % 2 H Nucleated RBC % Not Reportable Neutrophils # (Manual) 12.3 H Lymphocytes # (Manual) 1.7 Monocytes # (Manual) 0.6 Eosinophils # (Manual) 0.0 Basophils # (Manual) 0.0 Differential Comment MANUAL DIFFERENTIAL WBC Morphology 1+ TOXIC GRANULATION Platelet Estimate NORMAL (130-450,000) Platelet Morphology NORMAL APPEARANCE RBC Morph Micro Appear NORMAL APPEARANCE Sodium 141 Potassium 4.7 H Chloride 107 Carbon Dioxide 20 L Anion Gap 14.0 H BUN 98 H* Creatinine 4.8 H Estimated GFR (MDRD) 9 L Glucose 147 H Lactic Acid 1.4 Calcium 8.7 Total Bilirubin 0.4 AST 11 ALT 18 Alkaline Phosphatase 105 Total Protein 7.1 Albumin 3.4 Globulin 3.7 Albumin/Globulin Ratio 0.9 L Lipase 36 PD Medical Decision Making - ED course Complexity details: reviewed old records, reviewed results, re-evaluated patient, considered differential, d/w patient, d/w family ED course: I ordered laboratory studies and IV fluids for the patient, but patient was ada mant that she did not want her blood drawn or IV placed. She would not let her nursing staff access the port. The patient became that he meant about this and finally, we called the POA because the patient was putting up such resistance. POA stated that she was fine with the patient not getting IV fluids or testing done if she did not want to, as the patient is supposed to be taken into hospice in 2 days. She is also a DNR with limited interventions. The patient has caregivers during the day but not at night, a situation which which she has been living for months. Caregiver was unknown available to answer the phone and daughter lives in [facility]. I spoke with EMS, who is willing to come and get the patient and take her home, but then it turned out the patient did not have any keys to her apartment, which would be locked up. At this point, EMS stated that they would not have any way to get her in and even if they did, they did not feel comfortable transporting her. As such, I have ordered a hospice consult for intake tomorrow and have spoken directly with the hospice nurse. I have also ordered a social work consult for the patient so that she can be seen in the morning to help facilitate a plan. She is signed out to the oncoming emergency physician at change of shift, pending final disposition. Departure - Departure Clinical Impression: Altered mental status Qualifiers: Altered mental status type: unspecified Qualified Code(s): R41.82 - Altered mental status, unspecified Condition: Stable Instructions: ED Altered Loc Comments: You have refused all interventions tonight. We have spoken with your power of haulage boss, your daughter, who has supported your decision to have nothing done here in the emergency department. We have put in a hospice consultation for you tonight so that you can get some care in the comfort of your home without having to come to the ED if you do not wish to. Please continue to work with your outpatient providers in this regard. Forms: PCP List
[2023-02-19] MEDS ORDERED: LORazepam 0.5 MG TABLET PO STA (23:24)
[2023-02-20 10:59] VITALS: BP 137/80; O2SAT 97
== END 2023-02-20 08:09 | disposition home or self-care (01) ==
LOC: EDUNIT# → ED 16:47
DX: R41.82 Altered mental status, unspecified (principal); I10 Essential (primary) hypertension; E11.42 Type 2 diabetes mellitus with diabetic polyneuropathy; F17.200 Nicotine dependence, unspecified, uncomplicated
CPT/HCPCS: 36415; 71045; 80053; 83605; 83690; 85025; 87040; 99284; A9270; 82803